=== PATIENT | female | born 1955 ===

== ENCOUNTER 2019-12-02 18:09 | Inpatient (IN) | payer MEDICARE ==
[2019-12-03] MEDS ORDERED: LORazepam 2 MG TAB PO PRN (02:11)
[2019-12-03] MEDS ORDERED: HALOPERIDOL 5 MG TAB PO PRN (02:14)
[2019-12-03] MEDS ORDERED: traZODone 50 MG TAB PO PRN (02:15)
[2019-12-03] MEDS: LORazepam 2 MG/ML VIAL IM PRN (04:28)
[2019-12-03] MEDS: HALOPERIDOL LACTATE 5 MG/1 ML INJ IM PRN (04:29)
[2019-12-03] MEDS ORDERED: VENLAFAXINE XR 75 MG CAP PO SCH (10:00)
[2019-12-03 10:04] LABS: Hemoglobin 11.8 gm/dl (10.1-14.3); Mean Corpuscular HGB Conc 32 % (30-34); Mean Corpuscular Volume 94 fl (79-97); Platelet Count 115 K/mm3 (140-440); Red Blood Count 3.92 M/mm3 (3.65-5.03); Red Cell Distribution Width 15.4 % (13.2-15.2)
--- NOTE | 2019-12-03 10:04 | History and Physical Report ---
GP History & Physical - History of Present Illness Date of admission: 12/02/19 Date of Examination: 12/03/19 Reason for Admission: Danger to self, Unable to care for self Chief Complaint: Combative, refusing medications and meals. Ran into traffic History of Present Illness: The patient is a 63 y/o AAF with history of Schizophrenia and Dementia who presented with history of refusing to take her medications, refusing to eat and being combative with cares. She reportedly ran into the street with disregard to on-moving traffic. Patient has reportedly not been taking her psychotropic drugs for three months. Nursing Staff reports that patient was mute on arriving the unit. She refused to answer questions and would not sign paper works. Refused snacks as offered. Patient seen in the dayroom this morning. She is alert, she is a poor historian, states that she is ok and denies SI/HI. She is not able to engage in further conversation. PAST PSYCHIATRIC HISTORY: Diagnoses: Schizophrenia, Dementia Suicide attempts or Self-harm behavior: Unknown Prior psychiatric hospitalizations: Unknown Substance Abuse history: Unknown Previous psychiatric medications tried: Unknown Outpatient treatment: Unknown PAST MEDICAL HISTORY: Leukemia Family Psychiatric History None reported or documented SOCIAL HISTORY Unable to obtain REVIEW OF SYSTEMS ROS cannot be reliably obtained from the patient due to her confusion MENTAL STATUS EXAMINATION General Appearance and Behavior: age appropriate, poor eye contact, uncooperative with questioning Cooperation: uncooperative Psychomotor Behavior: agitated Mood: OK Affect and affective range: Congruent with stated mood Thought Process: Disorganized Thought Content: Confused Speech: Paucity of speech Intellectual Functioning Impaired Suicidal Ideation: Denies SI Homicidal Ideation: Denies HI Impulse Control: impaired Insight and Judgment: impairedl insight and judgment Memory: impaired Attention: Normal Orientation: alert and oriented x 1 - Psychiatric problem (1) Schizophrenia Current Visit: Yes Status: Acute Qualifiers: Schizophrenia type: unspecified Qualified Code(s): F20.9 - Schizophrenia, unspecified (2) Dementia with behavioral disturbance Current Visit: Yes Status: Acute Treatment Plan Patient will be admitted for inpatient psychiatric evaluation, medication adjustment and close monitoring The patient's behavior, mood, sleep and appetite will be closely monitored. Patient will be enrolled in individual and group therapeutic sessions and encouraged to attend. Patient will be provided with a safe and structured environment. Patient's physical health needs will be addressed by the Hospitalist. Hospitalist Consulted Labs including CBC, CMP, Lipid profile and Hemoglobin A1C ordered Social Assessment will be completed and the Ambulatory Care will work with patient and family to ensure a suitable and safe disposition Medication adjustment will be made as clinically indicated ELOS 7 days. Legal Status: Involuntary Patient Problems: Current Active Problems Dementia with behavioral disturbance (Acute) Schizophrenia (Acute) Reaction to Hospitalization: Resistant Medications and Allergies Allergies Allergy/AdvReac Type Severity Reaction Status Date / Time No Known Allergies Allergy Verified 12/02/19 18:17 Home Medications Medication Instructions Recorded Confirmed Last Taken Type Melatonin [Melatonin 5MG TAB] 5 mg PO QHS 12/03/19 12/03/19 Unknown History Mirtazapine [Remeron 15mg TAB] 15 mg PO QHS 12/03/19 12/03/19 Unknown History Venlafaxine Xr [Effexor Xr] 75 mg PO QDAY 12/03/19 12/03/19 Unknown History risperiDONE [RisperDAL] 2 mg PO QHS 12/03/19 12/03/19 Unknown History Active Meds: Active Medications Haloperidol (Haldol) 5 mg PO Q6H PRN PRN Reason: Agitation Haloperidol Lactate (Haldol) 5 mg IM Q6H PRN PRN Reason: Agitation Last Admin: 12/03/19 04:29 Dose: 5 mg Documented by: Lorazepam (Ativan) 2 mg PO Q6H PRN PRN Reason: Agitation Lorazepam (Ativan) 2 mg IM Q6H PRN PRN Reason: Agitation Last Admin: 12/03/19 04:28 Dose: 2 mg Documented by: Melatonin (Melatonin) 5 mg PO QHS [facility] Melatonin (Melatonin) 5 mg PO QHS [facility] Mirtazapine (Remeron) 15 mg PO QHS [facility] Mirtazapine (Remeron) 15 mg PO QHS [facility] Miscellaneous Medication (Risperidone [Risperdal]) 2 mg PO QHS [facility] Risperidone (Risperdal) 2 mg PO QHS [facility] Trazodone HCl (Desyrel) 50 mg PO QHS PRN PRN Reason: Insomnia Venlafaxine HCl (Effexor Xr) 75 mg PO QDAY [facility] Venlafaxine HCl (Effexor Xr) 75 mg PO QDAY [facility] Results - Results Labs/Vitals: Laboratory Last Values POC Glucose 78 (70-105) 12/03/19 08:04 Last Vital Signs Temp 98.1 F 12/03/19 08:32 Pulse 99 H 12/03/19 08:32 Resp 20 12/03/19 08:32 BP 115/71 12/03/19 08:32 Pulse Ox 97 12/03/19 08:32 Physical Examination - Constitutional Vitals: Vital Signs Temp Pulse Resp BP Pulse Ox 98.1 F 99 H 20 115/71 97 12/03/19 08:32 12/03/19 08:32 12/03/19 08:32 12/03/19 08:32 12/03/19 08:32 Temperature -Last 24 Hours Temperature 98.1 F Temperature 98.1 F Temperature 98.1 F Mental Status Exam - Vital signs Last Vital Signs Temp 98.1 F 12/03/19 08:32 Pulse 99 H 12/03/19 08:32 Resp 20 12/03/19 08:32 BP 115/71 12/03/19 08:32 Pulse Ox 97 12/03/19 08:32 Assessment and Plan - Psychiatric problem (1) Schizophrenia Current Visit: Yes Status: Acute Qualifiers: Schizophrenia type: unspecified Qualified Code(s): F20.9 - Schizophrenia, unspecified (2) Dementia with behavioral disturbance Current Visit: Yes Status: Acute Physician Certification - Certification Statement Physician Certification Statement: This is an acknowledgement statement that DEEPIKA JONES is a 63 year old F who requires inpatient psychiatric admission for treatment which could reasonably be expected to improve the patient's condition for Combative behavior, refusing to take medications and refusing to eat Estimated period of time patient will need to remain in the hospital: [7 days ] Plan for post-hospital care: [Out-patient care]
[2019-12-03 10:22] LABS: Alanine Aminotransferase 15 units/L (7-56); Albumin 4.1 g/dL (3.9-5); BUN/Creatinine Ratio 20; Blood Urea Nitrogen 18 mg/dL (7-17); Calcium 9.5 mg/dL (8.4-10.2); HDL Cholesterol 57 mg/dL (40-59); Hemolysis Index 6; LDL Cholesterol,Direct 181 mg/dL (50-130)
[2019-12-03] MEDS: VENLAFAXINE XR 75 MG CAP PO SCH (11:44)
[2019-12-03 13:09] LABS: Anisocytosis Few; Basophils % (Manual) 0 % (0.0-1.8); Eosinophils % (Manual) 0 % (0.0-4.3); Macrocytosis Few; Monocytes % (Manual) 0 % (0.0-7.3); Platelet Estimate Consistent w Auto; Total Cells Counted 100
[2019-12-03] MEDS: risperiDONE 1 MG TAB PO SCH ×2 (21:44→22:03)
[2019-12-03] MEDS: MIRTAZAPINE 15 MG TAB PO SCH ×2 (21:44→22:02)
[2019-12-03] MEDS: MELATONIN 5 MG TAB PO SCH ×2 (21:44→22:01)
[2019-12-03] MEDS ORDERED: MIRTAZAPINE 15 MG TAB PO SCH (22:00)
[2019-12-03] MEDS ORDERED: NON-FORMULARY EACH (Risperidone [Risperdal] 2 MG) PO SCH (22:00)
[2019-12-03] MEDS ORDERED: risperiDONE 1 MG TAB PO SCH (22:00)
[2019-12-03] MEDS ORDERED: MELATONIN 5 MG TAB PO SCH (22:00)
--- NOTE | 2019-12-04 08:07 | Progress Note ---
Subjective Date of service: 12/04/19 Principal diagnosis: Dementia, Catatonic Schizophrenia Subjective Comment: SUBJECTIVE I reviewed patient this morning. I met her sitting on her bed in her room, starring blankly, motionless and mute. Nursing report: Patient presents with a bizarre affect. She has had no interaction with peers or staff. Some of her time has been standing in the hallway looking into space. She will not discuss her thoughts. The patient refused her bedtime meds. REVIEW OF SYSTEMS ROS cannot be reliably obtained from the patient due to her confusion MENTAL STATUS EXAMINATION LSIME - Psychiatric problem (1) Schizophrenia, Catatonic Current Visit: Yes Status: Acute Qualifiers: Schizophrenia type: unspecified Qualified Code(s): F20.9 - Schizophrenia, unspecified (2) Dementia with behavioral disturbance Current Visit: Yes Status: Acute Treatment Plan Patient will be admitted for inpatient psychiatric evaluation, medication adjustment and close monitoring The patient's behavior, mood, sleep and appetite will be closely monitored. Patient will be enrolled in individual and group therapeutic sessions and encouraged to attend. Patient will be provided with a safe and structured environment. Patient's physical health needs will be addressed by the Hospitalist. Hospitalist Consulted Labs including CBC, CMP, Lipid profile and Hemoglobin A1C ordered Social Assessment will be completed and the Hand Booked Folder And Stitcher will work with patient and family to ensure a suitable and safe disposition Medication adjustment will be made as clinically indicated Medication adjustment made today: Lorazepam im 1mg q8 and Risperidone increased to 2mg bid ELOS 7 days. Legal Status: Involuntary Assessment and Plan - Patient Problems (1) Schizophrenia Current Visit: Yes Status: Acute Qualifiers: Schizophrenia type: unspecified Qualified Code(s): F20.9 - Schizophrenia, unspecified (2) Dementia with behavioral disturbance Current Visit: Yes Status: Acute Medications and Allergies Allergies Allergy/AdvReac Type Severity Reaction Status Date / Time No Known Allergies Allergy Verified 12/02/19 18:17 Home Medications Medication Instructions Recorded Confirmed Last Taken Type Melatonin [Melatonin 5MG TAB] 5 mg PO QHS 12/03/19 12/03/19 Unknown History Mirtazapine [Remeron 15mg TAB] 15 mg PO QHS 12/03/19 12/03/19 Unknown History Venlafaxine Xr [Effexor Xr] 75 mg PO QDAY 12/03/19 12/03/19 Unknown History risperiDONE [RisperDAL] 2 mg PO QHS 12/03/19 12/03/19 Unknown History Active Meds: Active Medications Haloperidol (Haldol) 5 mg PO Q6H PRN PRN Reason: Agitation Haloperidol Lactate (Haldol) 5 mg IM Q6H PRN PRN Reason: Agitation Last Admin: 12/03/19 04:29 Dose: 5 mg Documented by: Lorazepam (Ativan) 2 mg PO Q6H PRN PRN Reason: Agitation Lorazepam (Ativan) 2 mg IM Q6H PRN PRN Reason: Agitation Last Admin: 12/03/19 04:28 Dose: 2 mg Documented by: Lorazepam (Ativan) 1 mg IM Q8H [facility] Melatonin (Melatonin) 5 mg PO QHS [facility] Last Admin: 12/03/19 22:01 Dose: Not Given Documented by: Mirtazapine (Remeron) 15 mg PO QHS [facility] Last Admin: 12/03/19 22:02 Dose: Not Given Documented by: Risperidone (Risperdal) 2 mg PO BID [facility] Trazodone HCl (Desyrel) 50 mg PO QHS PRN PRN Reason: Insomnia Venlafaxine HCl (Effexor Xr) 75 mg PO QDAY [facility] Last Admin: 12/03/19 11:44 Dose: Not Given Documented by: Results - Results Labs/Vitals: Laboratory Last Values WBC 29.8 K/mm3 (4.5-11.0) H 12/03/19 09:16 RBC 3.92 M/mm3 (3.65-5.03) 12/03/19 09:16 Hgb 11.8 gm/dl (10.1-14.3) 12/03/19 09:16 Hct 37.0 % (30.3-42.9) 12/03/19 09:16 MCV 94 fl (79-97) 12/03/19 09:16 MCH 30 pg (28-32) 12/03/19 09:16 MCHC 32 % (30-34) 12/03/19 09:16 RDW 15.4 % (13.2-15.2) H 12/03/19 09:16 Plt Count 115 K/mm3 (140-440) L 12/03/19 09:16 Lymph % (Auto) Case Management Social Worker 12/03/19 09:16 Lymph # Case Management Social Worker 12/03/19 09:16 Add Manual Diff Complete 12/03/19 09:16 Total Counted 100 12/03/19 09:16 Seg Neutrophils % Case Management Social Worker 12/03/19 09:16 Seg Neuts % (Manual) 11.0 % (40.0-70.0) L 12/03/19 09:16 Band Neutrophils % 0 % 12/03/19 09:16 Lymphocytes % (Manual) 89.0 % (13.4-35.0) H 12/03/19 09:16 Reactive Lymphs % (Man) 0 % 12/03/19 09:16 Monocytes % (Manual) 0 % (0.0-7.3) 12/03/19 09:16 Eosinophils % (Manual) 0 % (0.0-4.3) 12/03/19 09:16 Basophils % (Manual) 0 % (0.0-1.8) 12/03/19 09:16 Metamyelocytes % 0 % 12/03/19 09:16 Myelocytes % 0 % 12/03/19 09:16 Promyelocytes % 0 % 12/03/19 09:16 Blast Cells % 0 % 12/03/19 09:16 Nucleated RBC % Not Reportable 12/03/19 09:16 Seg Neutrophils # Man 3.3 K/mm3 (1.8-7.7) 12/03/19 09:16 Band Neutrophils # 0.0 K/mm3 12/03/19 09:16 Lymphocytes # (Manual) 26.5 K/mm3 (1.2-5.4) H 12/03/19 09:16 Abs React Lymphs (Man) 0.0 K/mm3 12/03/19 09:16 Monocytes # (Manual) 0.0 K/mm3 (0.0-0.8) 12/03/19 09:16 Eosinophils # (Manual) 0.0 K/mm3 (0.0-0.4) 12/03/19 09:16 Basophils # (Manual) 0.0 K/mm3 (0.0-0.1) 12/03/19 09:16 Metamyelocytes # 0.0 K/mm3 12/03/19 09:16 Myelocytes # 0.0 K/mm3 12/03/19 09:16 Promyelocytes # 0.0 K/mm3 12/03/19 09:16 Blast Cells # 0.0 K/mm3 12/03/19 09:16 WBC Morphology Not Reportable 12/03/19 09:16 Hypersegmented Neuts Not Reportable 12/03/19 09:16 Hyposegmented Neuts Not Reportable 12/03/19 09:16 Hypogranular Neuts Not Reportable 12/03/19 09:16 Smudge Cells Not Reportable 12/03/19 09:16 Toxic Granulation Not Reportable 12/03/19 09:16 Toxic Vacuolation Not Reportable 12/03/19 09:16 Dohle Bodies Not Reportable 12/03/19 09:16 Pelger-Huet Anomaly Not Reportable 12/03/19 09:16 Libia Rods Not Reportable 12/03/19 09:16 Platelet Estimate Consistent w auto 12/03/19 09:16 Clumped Platelets Not Reportable 12/03/19 09:16 Plt Clumps, EDTA Not Reportable 12/03/19 09:16 Large Platelets Not Reportable 12/03/19 09:16 Giant Platelets Not Reportable 12/03/19 09:16 Platelet Satelliting Not Reportable 12/03/19 09:16 Plt Morphology Comment Not Reportable 12/03/19 09:16 RBC Morphology Not Reportable 12/03/19 09:16 Dimorphic RBCs Not Reportable 12/03/19 09:16 Polychromasia Not Reportable 12/03/19 09:16 Hypochromasia Not Reportable 12/03/19 09:16 Poikilocytosis Not Reportable 12/03/19 09:16 Anisocytosis Few 12/03/19 09:16 Microcytosis Few 12/03/19 09:16 Macrocytosis Few 12/03/19 09:16 Spherocytes Not Reportable 12/03/19 09:16 Pappenheimer Bodies Not Reportable 12/03/19 09:16 Sickle Cells Not Reportable 12/03/19 09:16 Target Cells Not Reportable 12/03/19 09:16 Tear Drop Cells Not Reportable 12/03/19 09:16 Ovalocytes Not Reportable 12/03/19 09:16 Helmet Cells Not Reportable 12/03/19 09:16 [place] Bodies Not Reportable 12/03/19 09:16 [place] Rings Not Reportable 12/03/19 09:16 [place] Cells Not Reportable 12/03/19 09:16 Bite Cells Not Reportable 12/03/19 09:16 Crenated Cell Not Reportable 12/03/19 09:16 Elliptocytes Not Reportable 12/03/19 09:16 Acanthocytes (Spur) Not Reportable 12/03/19 09:16 Rouleaux Not Reportable 12/03/19 09:16 Hemoglobin C Crystals Not Reportable 12/03/19 09:16 Schistocytes Not Reportable 12/03/19 09:16 Malaria parasites Not Reportable 12/03/19 09:16 Daniel Bodies Not Reportable 12/03/19 09:16 Hem Pathologist Commnt No 12/03/19 09:16 Sodium 142 mmol/L (137-145) 12/03/19 09:16 Potassium 4.4 mmol/L (3.6-5.0) 12/03/19 09:16 Chloride 105.5 mmol/L (98-107) 12/03/19 09:16 Carbon Dioxide 22 mmol/L (22-30) 12/03/19 09:16 Anion Gap 19 mmol/L 12/03/19 09:16 BUN 18 mg/dL (7-17) H 12/03/19 09:16 Creatinine 0.9 mg/dL (0.7-1.2) 12/03/19 09:16 Estimated GFR > 60 ml/min 12/03/19 09:16 BUN/Creatinine Ratio 20 % 12/03/19 09:16 Glucose 118 mg/dL (65-100) H 12/03/19 09:16 POC Glucose 78 (70-105) 12/03/19 08:04 Hemoglobin A1c 4.7 % (4-6) 12/03/19 09:16 Calcium 9.5 mg/dL (8.4-10.2) 12/03/19 09:16 Total Bilirubin 0.30 mg/dL (0.1-1.2) 12/03/19 09:16 AST 18 units/L (5-40) 12/03/19 09:16 ALT 15 units/L (7-56) 12/03/19 09:16 Alkaline Phosphatase 69 units/L (35-129) 12/03/19 09:16 Total Protein 6.8 g/dL (6.3-8.2) 12/03/19 09:16 Albumin 4.1 g/dL (3.9-5) 12/03/19 09:16 Albumin/Globulin Ratio 1.5 % 12/03/19 09:16 Triglycerides 70 mg/dL (2-149) 12/03/19 09:16 Cholesterol 234 mg/dL (50-199) H 12/03/19 09:16 LDL Cholesterol Direct 181 mg/dL (50-130) H 12/03/19 09:16 HDL Cholesterol 57 mg/dL (40-59) 12/03/19 09:16 Cholesterol/HDL Ratio 4.10 % 12/03/19 09:16 TSH 4.680 mlU/mL (0.270-4.200) H 12/03/19 09:16 Last Vital Signs Temp 97.3 F L 12/03/19 22:00 Pulse 103 H 12/03/19 22:00 Resp 16 12/03/19 22:00 BP 118/82 12/03/19 19:28 Pulse Ox 99 12/03/19 22:00
[2019-12-04] MEDS: LORazepam 2 MG/ML VIAL IM SCH ×2 (08:44→18:10)
[2019-12-04] MEDS: VENLAFAXINE XR 75 MG CAP PO SCH (11:45)
[2019-12-04] MEDS: risperiDONE 1 MG TAB PO SCH ×2 (11:45→21:24)
[2019-12-04] MEDS: HALOPERIDOL LACTATE 5 MG/1 ML INJ IM PRN ×2 (12:24→21:24)
[2019-12-04] MEDS: MIRTAZAPINE 15 MG TAB PO SCH (21:24)
[2019-12-04] MEDS: MELATONIN 5 MG TAB PO SCH (21:24)
[2019-12-05] MEDS: LORazepam 2 MG/ML VIAL IM SCH ×3 (00:02→18:18)
--- NOTE | 2019-12-05 08:10 | Progress Note ---
Subjective Date of service: 12/05/19 Principal diagnosis: Dementia, Catatonic Schizophrenia Subjective Comment: SUBJECTIVE I reviewed patient this morning. I met her sitting on her bed in her room, starring blankly, motionless and mute. Nursing report: Patient continues to be resistive to care. She did allow her vital signs to be taken but refused her medications. She spent most of her time laying curled up in her bed. She will not discuss her thoughts or feelings. When patient refused po meds she was cooperative with accepting im haldol. She did not eat a snack or drink fluids. She slept continually throughout the night. Patient presents as sleeping 8 plus hours. REVIEW OF SYSTEMS ROS cannot be reliably obtained from the patient due to her confusion MENTAL STATUS EXAMINATION SLIME - Psychiatric problem (1) Schizophrenia, Catatonic Current Visit: Yes Status: Acute Qualifiers: Schizophrenia type: unspecified Qualified Code(s): F20.9 - Schizophrenia, unspecified (2) Dementia with behavioral disturbance Current Visit: Yes Status: Acute Treatment Plan Patient will be admitted for inpatient psychiatric evaluation, medication adjustment and close monitoring The patient's behavior, mood, sleep and appetite will be closely monitored. Patient will be enrolled in individual and group therapeutic sessions and encouraged to attend. Patient will be provided with a safe and structured environment. Patient's physical health needs will be addressed by the Hospitalist. Hospitalist Consulted Labs including CBC, CMP, Lipid profile and Hemoglobin A1C ordered Social Assessment will be completed and the Director Life will work with patient and family to ensure a suitable and safe disposition Medication adjustment will be made as clinically indicated Medication adjustment made today: None ELOS 7 days. Legal Status: Involuntary Assessment and Plan - Patient Problems (1) Schizophrenia Current Visit: Yes Status: Acute Qualifiers: Schizophrenia type: unspecified Qualified Code(s): F20.9 - Schizophrenia, unspecified (2) Dementia with behavioral disturbance Current Visit: Yes Status: Acute Medications and Allergies Allergies Allergy/AdvReac Type Severity Reaction Status Date / Time No Known Allergies Allergy Verified 12/02/19 18:17 Home Medications Medication Instructions Recorded Confirmed Last Taken Type Melatonin [Melatonin 5MG TAB] 5 mg PO QHS 12/03/19 12/03/19 Unknown History Mirtazapine [Remeron 15mg TAB] 15 mg PO QHS 12/03/19 12/03/19 Unknown History Venlafaxine Xr [Effexor Xr] 75 mg PO QDAY 12/03/19 12/03/19 Unknown History risperiDONE [RisperDAL] 2 mg PO QHS 12/03/19 12/03/19 Unknown History Active Meds: Active Medications Haloperidol (Haldol) 5 mg PO Q6H PRN PRN Reason: Agitation Haloperidol Lactate (Haldol) 5 mg IM Q6H PRN PRN Reason: Agitation Last Admin: 12/04/19 21:24 Dose: 5 mg Documented by: Lorazepam (Ativan) 2 mg PO Q6H PRN PRN Reason: Agitation Lorazepam (Ativan) 2 mg IM Q6H PRN PRN Reason: Agitation Last Admin: 12/03/19 04:28 Dose: 2 mg Documented by: Lorazepam (Ativan) 1 mg IM Q8H [facility] Last Admin: 12/05/19 00:02 Dose: 1 mg Documented by: Melatonin (Melatonin) 5 mg PO QHS [facility] Last Admin: 12/04/19 21:24 Dose: Not Given Documented by: Mirtazapine (Remeron) 15 mg PO QHS [facility] Last Admin: 12/04/19 21:24 Dose: Not Given Documented by: Risperidone (Risperdal) 2 mg PO BID [facility] Last Admin: 12/04/19 21:24 Dose: Not Given Documented by: Trazodone HCl (Desyrel) 50 mg PO QHS PRN PRN Reason: Insomnia Venlafaxine HCl (Effexor Xr) 75 mg PO QDAY [facility] Last Admin: 12/04/19 11:45 Dose: Not Given Documented by: Results - Results Labs/Vitals: Laboratory Last Values WBC 29.8 K/mm3 (4.5-11.0) H 12/03/19 09:16 RBC 3.92 M/mm3 (3.65-5.03) 12/03/19 09:16 Hgb 11.8 gm/dl (10.1-14.3) 12/03/19 09:16 Hct 37.0 % (30.3-42.9) 12/03/19 09:16 MCV 94 fl (79-97) 12/03/19 09:16 MCH 30 pg (28-32) 12/03/19 09:16 MCHC 32 % (30-34) 12/03/19 09:16 RDW 15.4 % (13.2-15.2) H 12/03/19 09:16 Plt Count 115 K/mm3 (140-440) L 12/03/19 09:16 Lymph % (Auto) Bartender 12/03/19 09:16 Lymph # Bartender 12/03/19 09:16 Add Manual Diff Complete 12/03/19 09:16 Total Counted 100 12/03/19 09:16 Seg Neutrophils % Bartender 12/03/19 09:16 Seg Neuts % (Manual) 11.0 % (40.0-70.0) L 12/03/19 09:16 Band Neutrophils % 0 % 12/03/19 09:16 Lymphocytes % (Manual) 89.0 % (13.4-35.0) H 12/03/19 09:16 Reactive Lymphs % (Man) 0 % 12/03/19 09:16 Monocytes % (Manual) 0 % (0.0-7.3) 12/03/19 09:16 Eosinophils % (Manual) 0 % (0.0-4.3) 12/03/19 09:16 Basophils % (Manual) 0 % (0.0-1.8) 12/03/19 09:16 Metamyelocytes % 0 % 12/03/19 09:16 Myelocytes % 0 % 12/03/19 09:16 Promyelocytes % 0 % 12/03/19 09:16 Blast Cells % 0 % 12/03/19 09:16 Nucleated RBC % Not Reportable 12/03/19 09:16 Seg Neutrophils # Man 3.3 K/mm3 (1.8-7.7) 12/03/19 09:16 Band Neutrophils # 0.0 K/mm3 12/03/19 09:16 Lymphocytes # (Manual) 26.5 K/mm3 (1.2-5.4) H 12/03/19 09:16 Abs React Lymphs (Man) 0.0 K/mm3 12/03/19 09:16 Monocytes # (Manual) 0.0 K/mm3 (0.0-0.8) 12/03/19 09:16 Eosinophils # (Manual) 0.0 K/mm3 (0.0-0.4) 12/03/19 09:16 Basophils # (Manual) 0.0 K/mm3 (0.0-0.1) 12/03/19 09:16 Metamyelocytes # 0.0 K/mm3 12/03/19 09:16 Myelocytes # 0.0 K/mm3 12/03/19 09:16 Promyelocytes # 0.0 K/mm3 12/03/19 09:16 Blast Cells # 0.0 K/mm3 12/03/19 09:16 WBC Morphology Not Reportable 12/03/19 09:16 Hypersegmented Neuts Not Reportable 12/03/19 09:16 Hyposegmented Neuts Not Reportable 12/03/19 09:16 Hypogranular Neuts Not Reportable 12/03/19 09:16 Smudge Cells Not Reportable 12/03/19 09:16 Toxic Granulation Not Reportable 12/03/19 09:16 Toxic Vacuolation Not Reportable 12/03/19 09:16 Dohle Bodies Not Reportable 12/03/19 09:16 Pelger-Huet Anomaly Not Reportable 12/03/19 09:16 Libia Rods Not Reportable 12/03/19 09:16 Platelet Estimate Consistent w auto 12/03/19 09:16 Clumped Platelets Not Reportable 12/03/19 09:16 Plt Clumps, EDTA Not Reportable 12/03/19 09:16 Large Platelets Not Reportable 12/03/19 09:16 Giant Platelets Not Reportable 12/03/19 09:16 Platelet Satelliting Not Reportable 12/03/19 09:16 Plt Morphology Comment Not Reportable 12/03/19 09:16 RBC Morphology Not Reportable 12/03/19 09:16 Dimorphic RBCs Not Reportable 12/03/19 09:16 Polychromasia Not Reportable 12/03/19 09:16 Hypochromasia Not Reportable 12/03/19 09:16 Poikilocytosis Not Reportable 12/03/19 09:16 Anisocytosis Few 12/03/19 09:16 Microcytosis Few 12/03/19 09:16 Macrocytosis Few 12/03/19 09:16 Spherocytes Not Reportable 12/03/19 09:16 Pappenheimer Bodies Not Reportable 12/03/19 09:16 Sickle Cells Not Reportable 12/03/19 09:16 Target Cells Not Reportable 12/03/19 09:16 Tear Drop Cells Not Reportable 12/03/19 09:16 Ovalocytes Not Reportable 12/03/19 09:16 Helmet Cells Not Reportable 12/03/19 09:16 [place] Bodies Not Reportable 12/03/19 09:16 [place] Rings Not Reportable 12/03/19 09:16 [place] Cells Not Reportable 12/03/19 09:16 Bite Cells Not Reportable 12/03/19 09:16 Crenated Cell Not Reportable 12/03/19 09:16 Elliptocytes Not Reportable 12/03/19 09:16 Acanthocytes (Spur) Not Reportable 12/03/19 09:16 Rouleaux Not Reportable 12/03/19 09:16 Hemoglobin C Crystals Not Reportable 12/03/19 09:16 Schistocytes Not Reportable 12/03/19 09:16 Malaria parasites Not Reportable 12/03/19 09:16 Daniel Bodies Not Reportable 12/03/19 09:16 Hem Pathologist Commnt No 12/03/19 09:16 Sodium 142 mmol/L (137-145) 12/03/19 09:16 Potassium 4.4 mmol/L (3.6-5.0) 12/03/19 09:16 Chloride 105.5 mmol/L (98-107) 12/03/19 09:16 Carbon Dioxide 22 mmol/L (22-30) 12/03/19 09:16 Anion Gap 19 mmol/L 12/03/19 09:16 BUN 18 mg/dL (7-17) H 12/03/19 09:16 Creatinine 0.9 mg/dL (0.7-1.2) 12/03/19 09:16 Estimated GFR > 60 ml/min 12/03/19 09:16 BUN/Creatinine Ratio 20 % 12/03/19 09:16 Glucose 118 mg/dL (65-100) H 12/03/19 09:16 POC Glucose 78 (70-105) 12/03/19 08:04 Hemoglobin A1c 4.7 % (4-6) 12/03/19 09:16 Calcium 9.5 mg/dL (8.4-10.2) 12/03/19 09:16 Total Bilirubin 0.30 mg/dL (0.1-1.2) 12/03/19 09:16 AST 18 units/L (5-40) 12/03/19 09:16 ALT 15 units/L (7-56) 12/03/19 09:16 Alkaline Phosphatase 69 units/L (35-129) 12/03/19 09:16 Total Protein 6.8 g/dL (6.3-8.2) 12/03/19 09:16 Albumin 4.1 g/dL (3.9-5) 12/03/19 09:16 Albumin/Globulin Ratio 1.5 % 12/03/19 09:16 Triglycerides 70 mg/dL (2-149) 12/03/19 09:16 Cholesterol 234 mg/dL (50-199) H 12/03/19 09:16 LDL Cholesterol Direct 181 mg/dL (50-130) H 12/03/19 09:16 HDL Cholesterol 57 mg/dL (40-59) 12/03/19 09:16 Cholesterol/HDL Ratio 4.10 % 12/03/19 09:16 TSH 4.680 mlU/mL (0.270-4.200) H 12/03/19 09:16 Last Vital Signs Temp 97.9 F 12/04/19 22:00 Pulse 101 H 12/04/19 22:00 Resp 18 12/04/19 22:00 BP 130/83 12/04/19 22:00 Pulse Ox 97 12/04/19 22:00
[2019-12-05] MEDS: risperiDONE 1 MG TAB PO SCH ×2 (15:21→21:43)
[2019-12-05] MEDS: VENLAFAXINE XR 75 MG CAP PO SCH (15:21)
--- NOTE | 2019-12-05 17:16 | Consultation ---
History of Present Illness - Reason for Consult Consult date: 12/05/19 Medical consult Requesting physician: VIKTORIA RAYO - History of Present Illness 63-year-old -[place] female patient with significant past medical history of schizophrenia dementia unable to care for self refusing to eat and take medications, danger to self was admitted to inpatient [facility] psych unit for management. Hospitalist services were consulted for medical consult. Patient has no significant known past medical history except for leukemia with leukocytosis Patient is unable to give history Past History Past Medical History: other (Schizophrenia, dementia, leukemia) Past Surgical History: No surgical history (No history available) Social history: no significant social history (No history available) Family history: no significant family history (No history available) Medications and Allergies Allergies Allergy/AdvReac Type Severity Reaction Status Date / Time No Known Allergies Allergy Verified 12/02/19 18:17 Home Medications Medication Instructions Recorded Confirmed Last Taken Type Melatonin [Melatonin 5MG TAB] 5 mg PO QHS 12/03/19 12/03/19 Unknown History Mirtazapine [Remeron 15mg TAB] 15 mg PO QHS 12/03/19 12/03/19 Unknown History Venlafaxine Xr [Effexor Xr] 75 mg PO QDAY 12/03/19 12/03/19 Unknown History risperiDONE [RisperDAL] 2 mg PO QHS 12/03/19 12/03/19 Unknown History Paliperidone Palmitate(Nf) [Invega 234 mg IM ONCE #1 ml 12/06/19 Unknown Rx Sustenna(Nf)] Active Meds: Active Medications Haloperidol (Haldol) 5 mg PO Q6H PRN PRN Reason: Agitation Haloperidol Lactate (Haldol) 5 mg IM Q6H PRN PRN Reason: Agitation Last Admin: 12/04/19 21:24 Dose: 5 mg Documented by: Lorazepam (Ativan) 2 mg PO Q6H PRN PRN Reason: Agitation Lorazepam (Ativan) 2 mg IM Q6H PRN PRN Reason: Agitation Last Admin: 12/03/19 04:28 Dose: 2 mg Documented by: Lorazepam (Ativan) 1 mg IM Q8H [facility] Last Admin: 12/05/19 09:02 Dose: 1 mg Documented by: Melatonin (Melatonin) 5 mg PO QHS [facility] Last Admin: 12/04/19 21:24 Dose: Not Given Documented by: Mirtazapine (Remeron) 15 mg PO QHS [facility] Last Admin: 12/04/19 21:24 Dose: Not Given Documented by: Risperidone (Risperdal) 2 mg PO BID [facility] Last Admin: 12/05/19 15:21 Dose: Not Given Documented by: Trazodone HCl (Desyrel) 50 mg PO QHS PRN PRN Reason: Insomnia Venlafaxine HCl (Effexor Xr) 75 mg PO QDAY [facility] Last Admin: 12/05/19 15:21 Dose: Not Given Documented by: Review of Systems ROS unobtainable: due to mental status Exam - Constitutional Vitals: Temp Pulse Resp BP Pulse Ox 97.9 F 88 16 120/81 98 12/05/19 09:40 12/05/19 09:40 12/05/19 09:40 12/05/19 09:40 12/05/19 09:40 General appearance: Present: no acute distress, other (Patient is noncommunicative, unresponsive, awake) - EENT Eyes: Present: PERRL. Absent: scleral icterus - Neck Neck: Present: supple, normal ROM - Respiratory Respiratory effort: normal Respiratory: bilateral: diminished, negative: rales, rhonchi, wheezing - Cardiovascular Rhythm: regular Heart Sounds: Present: S1 & S2 - Extremities Extremities: no ischemia, No edema - Abdominal General gastrointestinal: Present: soft, non-tender, non-distended, normal bowel sounds - Integumentary Integumentary: Present: clear, warm - Musculoskeletal Musculoskeletal: other (Patient is lying in the bed unable to assess) - Psychiatric Psychiatric: other (Noncommunicative catatonic) - Neurologic Neurologic: other (Noncommunicative lying in the bed. unable to assess) Results - Labs CBC & Chem 7: 12/07/19 11:10 12/03/19 09:16 Assessment and Plan --Schizophrenia; management per psych --Dementia; management per psych --Leukocytosis; documented that patient has history of leukemia Patient will follow with hematology oncologist upon discharge --SIRS: Leukocytosis, tachycardia No organ dysfunction, supportive care --Abnormal TSH; possible hypothyroidism Check thyroid panel, address accordingly --Dyslipidemia; LDL 181 Low-dose statin[Lipitor 20 mg nightly] --DVT prophylaxis; SCDs while resting --CODE STATUS; full code Monitor closely and adjust the management as needed Plan of care reviewed with the patient's nurse Thank you for this consultation We will follow the patient along with you as needed basis.
[2019-12-05] MEDS: MIRTAZAPINE 15 MG TAB PO SCH (21:43)
[2019-12-05] MEDS: MELATONIN 5 MG TAB PO SCH (21:43)
[2019-12-05] MEDS: HALOPERIDOL LACTATE 5 MG/1 ML INJ IM PRN (22:12)
[2019-12-06] MEDS: LORazepam 2 MG/ML VIAL IM SCH ×3 (00:08→16:26)
--- NOTE | 2019-12-06 09:25 | Progress Note ---
Subjective Date of service: 12/06/19 Principal diagnosis: Dementia, Catatonic Schizophrenia Subjective Comment: SUBJECTIVE I reviewed patient this morning. I met her sitting on her bed in her room, starring blankly, motionless and mute. Nursing report: Pt is alert, selectively mute, spent her evening in bed, did not response to staff when spoken to, refused bedtime snack, refused po medication, haldol 5mg IM given per ordered if pt refuses po med, pt tolerated medication, no signs of distress noted. Reason for continuing admission: Patient is Catatonic REVIEW OF SYSTEMS ROS cannot be reliably obtained from the patient due to her confusion MENTAL STATUS EXAMINATION SLIME - Psychiatric problem (1) Schizophrenia, Catatonic Current Visit: Yes Status: Acute Qualifiers: Schizophrenia type: unspecified Qualified Code(s): F20.9 - Schizophrenia, unspecified (2) Dementia with behavioral disturbance Current Visit: Yes Status: Acute Treatment Plan Patient will be admitted for inpatient psychiatric evaluation, medication adjustment and close monitoring The patient's behavior, mood, sleep and appetite will be closely monitored. Patient will be enrolled in individual and group therapeutic sessions and encouraged to attend. Patient will be provided with a safe and structured environment. Patient's physical health needs will be addressed by the Hospitalist. Hospitalist Consulted Labs including CBC, CMP, Lipid profile and Hemoglobin A1C ordered Social Assessment will be completed and the Autopsy Assistant will work with patient and family to ensure a suitable and safe disposition Medication adjustment will be made as clinically indicated Medication adjustment made today: Will start Invega Sustenna 234mg IM ELOS 7 days. Legal Status: Involuntary Assessment and Plan - Patient Problems (1) Schizophrenia Current Visit: Yes Status: Acute Qualifiers: Schizophrenia type: unspecified Qualified Code(s): F20.9 - Schizophrenia, unspecified (2) Dementia with behavioral disturbance Current Visit: Yes Status: Acute Medications and Allergies Allergies Allergy/AdvReac Type Severity Reaction Status Date / Time No Known Allergies Allergy Verified 12/02/19 18:17 Home Medications Medication Instructions Recorded Confirmed Last Taken Type Melatonin [Melatonin 5MG TAB] 5 mg PO QHS 12/03/19 12/03/19 Unknown History Mirtazapine [Remeron 15mg TAB] 15 mg PO QHS 12/03/19 12/03/19 Unknown History Venlafaxine Xr [Effexor Xr] 75 mg PO QDAY 12/03/19 12/03/19 Unknown History risperiDONE [RisperDAL] 2 mg PO QHS 12/03/19 12/03/19 Unknown History Active Meds: Active Medications Haloperidol (Haldol) 5 mg PO Q6H PRN PRN Reason: Agitation Haloperidol Lactate (Haldol) 5 mg IM Q6H PRN PRN Reason: Agitation Last Admin: 12/05/19 22:12 Dose: 5 mg Documented by: Lorazepam (Ativan) 2 mg PO Q6H PRN PRN Reason: Agitation Lorazepam (Ativan) 2 mg IM Q6H PRN PRN Reason: Agitation Last Admin: 12/03/19 04:28 Dose: 2 mg Documented by: Lorazepam (Ativan) 1 mg IM Q8H [facility] Last Admin: 12/06/19 00:08 Dose: 1 mg Documented by: Melatonin (Melatonin) 5 mg PO QHS [facility] Last Admin: 12/05/19 21:43 Dose: Not Given Documented by: Mirtazapine (Remeron) 15 mg PO QHS [facility] Last Admin: 12/05/19 21:43 Dose: Not Given Documented by: Risperidone (Risperdal) 2 mg PO BID [facility] Last Admin: 12/05/19 21:43 Dose: Not Given Documented by: Trazodone HCl (Desyrel) 50 mg PO QHS PRN PRN Reason: Insomnia Venlafaxine HCl (Effexor Xr) 75 mg PO QDAY [facility] Last Admin: 12/05/19 15:21 Dose: Not Given Documented by: Results - Results Labs/Vitals: Laboratory Last Values WBC 29.8 K/mm3 (4.5-11.0) H 12/03/19 09:16 RBC 3.92 M/mm3 (3.65-5.03) 12/03/19 09:16 Hgb 11.8 gm/dl (10.1-14.3) 12/03/19 09:16 Hct 37.0 % (30.3-42.9) 12/03/19 09:16 MCV 94 fl (79-97) 12/03/19 09:16 MCH 30 pg (28-32) 12/03/19 09:16 MCHC 32 % (30-34) 12/03/19 09:16 RDW 15.4 % (13.2-15.2) H 12/03/19 09:16 Plt Count 115 K/mm3 (140-440) L 12/03/19 09:16 Lymph % (Auto) Chief Crew Scheduler 12/03/19 09:16 Lymph # Chief Crew Scheduler 12/03/19 09:16 Add Manual Diff Complete 12/03/19 09:16 Total Counted 100 12/03/19 09:16 Seg Neutrophils % Chief Crew Scheduler 12/03/19 09:16 Seg Neuts % (Manual) 11.0 % (40.0-70.0) L 12/03/19 09:16 Band Neutrophils % 0 % 12/03/19 09:16 Lymphocytes % (Manual) 89.0 % (13.4-35.0) H 12/03/19 09:16 Reactive Lymphs % (Man) 0 % 12/03/19 09:16 Monocytes % (Manual) 0 % (0.0-7.3) 12/03/19 09:16 Eosinophils % (Manual) 0 % (0.0-4.3) 12/03/19 09:16 Basophils % (Manual) 0 % (0.0-1.8) 12/03/19 09:16 Metamyelocytes % 0 % 12/03/19 09:16 Myelocytes % 0 % 12/03/19 09:16 Promyelocytes % 0 % 12/03/19 09:16 Blast Cells % 0 % 12/03/19 09:16 Nucleated RBC % Not Reportable 12/03/19 09:16 Seg Neutrophils # Man 3.3 K/mm3 (1.8-7.7) 12/03/19 09:16 Band Neutrophils # 0.0 K/mm3 12/03/19 09:16 Lymphocytes # (Manual) 26.5 K/mm3 (1.2-5.4) H 12/03/19 09:16 Abs React Lymphs (Man) 0.0 K/mm3 12/03/19 09:16 Monocytes # (Manual) 0.0 K/mm3 (0.0-0.8) 12/03/19 09:16 Eosinophils # (Manual) 0.0 K/mm3 (0.0-0.4) 12/03/19 09:16 Basophils # (Manual) 0.0 K/mm3 (0.0-0.1) 12/03/19 09:16 Metamyelocytes # 0.0 K/mm3 12/03/19 09:16 Myelocytes # 0.0 K/mm3 12/03/19 09:16 Promyelocytes # 0.0 K/mm3 12/03/19 09:16 Blast Cells # 0.0 K/mm3 12/03/19 09:16 WBC Morphology Not Reportable 12/03/19 09:16 Hypersegmented Neuts Not Reportable 12/03/19 09:16 Hyposegmented Neuts Not Reportable 12/03/19 09:16 Hypogranular Neuts Not Reportable 12/03/19 09:16 Smudge Cells Not Reportable 12/03/19 09:16 Toxic Granulation Not Reportable 12/03/19 09:16 Toxic Vacuolation Not Reportable 12/03/19 09:16 Dohle Bodies Not Reportable 12/03/19 09:16 Pelger-Huet Anomaly Not Reportable 12/03/19 09:16 Libia Rods Not Reportable 12/03/19 09:16 Platelet Estimate Consistent w auto 12/03/19 09:16 Clumped Platelets Not Reportable 12/03/19 09:16 Plt Clumps, EDTA Not Reportable 12/03/19 09:16 Large Platelets Not Reportable 12/03/19 09:16 Giant Platelets Not Reportable 12/03/19 09:16 Platelet Satelliting Not Reportable 12/03/19 09:16 Plt Morphology Comment Not Reportable 12/03/19 09:16 RBC Morphology Not Reportable 12/03/19 09:16 Dimorphic RBCs Not Reportable 12/03/19 09:16 Polychromasia Not Reportable 12/03/19 09:16 Hypochromasia Not Reportable 12/03/19 09:16 Poikilocytosis Not Reportable 12/03/19 09:16 Anisocytosis Few 12/03/19 09:16 Microcytosis Few 12/03/19 09:16 Macrocytosis Few 12/03/19 09:16 Spherocytes Not Reportable 12/03/19 09:16 Pappenheimer Bodies Not Reportable 12/03/19 09:16 Sickle Cells Not Reportable 12/03/19 09:16 Target Cells Not Reportable 12/03/19 09:16 Tear Drop Cells Not Reportable 12/03/19 09:16 Ovalocytes Not Reportable 12/03/19 09:16 Helmet Cells Not Reportable 12/03/19 09:16 [place] Bodies Not Reportable 12/03/19 09:16 [place] Rings Not Reportable 12/03/19 09:16 [place] Cells Not Reportable 12/03/19 09:16 Bite Cells Not Reportable 12/03/19 09:16 Crenated Cell Not Reportable 12/03/19 09:16 Elliptocytes Not Reportable 12/03/19 09:16 Acanthocytes (Spur) Not Reportable 12/03/19 09:16 Rouleaux Not Reportable 12/03/19 09:16 Hemoglobin C Crystals Not Reportable 12/03/19 09:16 Schistocytes Not Reportable 12/03/19 09:16 Malaria parasites Not Reportable 12/03/19 09:16 Daniel Bodies Not Reportable 12/03/19 09:16 Hem Pathologist Commnt No 12/03/19 09:16 Sodium 142 mmol/L (137-145) 12/03/19 09:16 Potassium 4.4 mmol/L (3.6-5.0) 12/03/19 09:16 Chloride 105.5 mmol/L (98-107) 12/03/19 09:16 Carbon Dioxide 22 mmol/L (22-30) 12/03/19 09:16 Anion Gap 19 mmol/L 12/03/19 09:16 BUN 18 mg/dL (7-17) H 12/03/19 09:16 Creatinine 0.9 mg/dL (0.7-1.2) 12/03/19 09:16 Estimated GFR > 60 ml/min 12/03/19 09:16 BUN/Creatinine Ratio 20 % 12/03/19 09:16 Glucose 118 mg/dL (65-100) H 12/03/19 09:16 POC Glucose 78 (70-105) 12/03/19 08:04 Hemoglobin A1c 4.7 % (4-6) 12/03/19 09:16 Calcium 9.5 mg/dL (8.4-10.2) 12/03/19 09:16 Total Bilirubin 0.30 mg/dL (0.1-1.2) 12/03/19 09:16 AST 18 units/L (5-40) 12/03/19 09:16 ALT 15 units/L (7-56) 12/03/19 09:16 Alkaline Phosphatase 69 units/L (35-129) 12/03/19 09:16 Total Protein 6.8 g/dL (6.3-8.2) 12/03/19 09:16 Albumin 4.1 g/dL (3.9-5) 12/03/19 09:16 Albumin/Globulin Ratio 1.5 % 12/03/19 09:16 Triglycerides 70 mg/dL (2-149) 12/03/19 09:16 Cholesterol 234 mg/dL (50-199) H 12/03/19 09:16 LDL Cholesterol Direct 181 mg/dL (50-130) H 12/03/19 09:16 HDL Cholesterol 57 mg/dL (40-59) 12/03/19 09:16 Cholesterol/HDL Ratio 4.10 % 12/03/19 09:16 TSH 4.680 mlU/mL (0.270-4.200) H 12/03/19 09:16 Last Vital Signs Temp 97.9 F 12/05/19 09:40 Pulse 88 12/05/19 09:40 Resp 16 12/05/19 09:40 BP 120/81 12/05/19 09:40 Pulse Ox 98 12/05/19 09:40
[2019-12-06] MEDS: risperiDONE 1 MG TAB PO SCH ×2 (10:27→21:40)
[2019-12-06] MEDS: VENLAFAXINE XR 75 MG CAP PO SCH (10:27)
[2019-12-06] MEDS: HALOPERIDOL LACTATE 5 MG/1 ML INJ IM PRN (12:06)
[2019-12-06] MEDS: MELATONIN 5 MG TAB PO SCH (21:39)
[2019-12-06] MEDS: MIRTAZAPINE 15 MG TAB PO SCH (21:39)
[2019-12-07] MEDS: LORazepam 2 MG/ML VIAL IM SCH ×3 (00:35→16:05)
--- NOTE | 2019-12-07 09:12 | Progress Note ---
Subjective Date of service: 12/07/19 Principal diagnosis: Dementia, Catatonic Schizophrenia Subjective Comment: SUBJECTIVE No changes. Patient continues to be catatonic. She did not receive Invega Sustenna prescribed yesterday due to cost. Nursing report: Pt is alert, selectively mute, spent her evening in bed, did not response to staff when spoken to, refused bedtime snack, refused po medication, haldol 5mg IM given per ordered if pt refuses po med, pt tolerated medication, no signs of distress noted. Reason for continuing admission: Patient is Catatonic REVIEW OF SYSTEMS ROS cannot be reliably obtained from the patient due to her confusion MENTAL STATUS EXAMINATION SLIME - Psychiatric problem (1) Schizophrenia, Catatonic Current Visit: Yes Status: Acute Qualifiers: Schizophrenia type: unspecified Qualified Code(s): F20.9 - Schizophrenia, unspecified (2) Dementia with behavioral disturbance Current Visit: Yes Status: Acute Treatment Plan Patient will be admitted for inpatient psychiatric evaluation, medication adjustment and close monitoring The patient's behavior, mood, sleep and appetite will be closely monitored. Patient will be enrolled in individual and group therapeutic sessions and encouraged to attend. Patient will be provided with a safe and structured environment. Patient's physical health needs will be addressed by the Hospitalist. Hospitalist Consulted Labs including CBC, CMP, Lipid profile and Hemoglobin A1C ordered Social Assessment will be completed and the Production Bow Maker will work with patient and family to ensure a suitable and safe disposition Medication adjustment will be made as clinically indicated Medication adjustment made today: None ELOS 7 days. Legal Status: Involuntary Assessment and Plan - Patient Problems (1) Schizophrenia Current Visit: Yes Status: Acute Qualifiers: Schizophrenia type: unspecified Qualified Code(s): F20.9 - Schizophrenia, unspecified (2) Dementia with behavioral disturbance Current Visit: Yes Status: Acute Medications and Allergies Allergies Allergy/AdvReac Type Severity Reaction Status Date / Time No Known Allergies Allergy Verified 12/02/19 18:17 Home Medications Medication Instructions Recorded Confirmed Last Taken Type Melatonin [Melatonin 5MG TAB] 5 mg PO QHS 12/03/19 12/03/19 Unknown History Mirtazapine [Remeron 15mg TAB] 15 mg PO QHS 12/03/19 12/03/19 Unknown History Venlafaxine Xr [Effexor Xr] 75 mg PO QDAY 12/03/19 12/03/19 Unknown History risperiDONE [RisperDAL] 2 mg PO QHS 12/03/19 12/03/19 Unknown History Paliperidone Palmitate(Nf) [Invega 234 mg IM ONCE #1 ml 12/06/19 Unknown Rx Sustenna(Nf)] Active Meds: Active Medications Haloperidol (Haldol) 5 mg PO Q6H PRN PRN Reason: Agitation Haloperidol Lactate (Haldol) 5 mg IM Q6H PRN PRN Reason: Agitation Last Admin: 12/06/19 12:06 Dose: 5 mg Documented by: Lorazepam (Ativan) 2 mg PO Q6H PRN PRN Reason: Agitation Lorazepam (Ativan) 2 mg IM Q6H PRN PRN Reason: Agitation Last Admin: 12/03/19 04:28 Dose: 2 mg Documented by: Lorazepam (Ativan) 1 mg IM Q8H [facility] Last Admin: 12/07/19 08:09 Dose: 1 mg Documented by: Melatonin (Melatonin) 5 mg PO QHS [facility] Last Admin: 12/06/19 21:39 Dose: Not Given Documented by: Mirtazapine (Remeron) 15 mg PO QHS [facility] Last Admin: 12/06/19 21:39 Dose: Not Given Documented by: Risperidone (Risperdal) 2 mg PO BID [facility] Last Admin: 12/06/19 21:40 Dose: Not Given Documented by: Trazodone HCl (Desyrel) 50 mg PO QHS PRN PRN Reason: Insomnia Venlafaxine HCl (Effexor Xr) 75 mg PO QDAY [facility] Last Admin: 12/06/19 10:27 Dose: Not Given Documented by: Results - Results Labs/Vitals: Laboratory Last Values WBC 29.8 K/mm3 (4.5-11.0) H 12/03/19 09:16 RBC 3.92 M/mm3 (3.65-5.03) 12/03/19 09:16 Hgb 11.8 gm/dl (10.1-14.3) 12/03/19 09:16 Hct 37.0 % (30.3-42.9) 12/03/19 09:16 MCV 94 fl (79-97) 12/03/19 09:16 MCH 30 pg (28-32) 12/03/19 09:16 MCHC 32 % (30-34) 12/03/19 09:16 RDW 15.4 % (13.2-15.2) H 12/03/19 09:16 Plt Count 115 K/mm3 (140-440) L 12/03/19 09:16 Lymph % (Auto) Organ Pipe Maker Metal 12/03/19 09:16 Lymph # Organ Pipe Maker Metal 12/03/19 09:16 Add Manual Diff Complete 12/03/19 09:16 Total Counted 100 12/03/19 09:16 Seg Neutrophils % Organ Pipe Maker Metal 12/03/19 09:16 Seg Neuts % (Manual) 11.0 % (40.0-70.0) L 12/03/19 09:16 Band Neutrophils % 0 % 12/03/19 09:16 Lymphocytes % (Manual) 89.0 % (13.4-35.0) H 12/03/19 09:16 Reactive Lymphs % (Man) 0 % 12/03/19 09:16 Monocytes % (Manual) 0 % (0.0-7.3) 12/03/19 09:16 Eosinophils % (Manual) 0 % (0.0-4.3) 12/03/19 09:16 Basophils % (Manual) 0 % (0.0-1.8) 12/03/19 09:16 Metamyelocytes % 0 % 12/03/19 09:16 Myelocytes % 0 % 12/03/19 09:16 Promyelocytes % 0 % 12/03/19 09:16 Blast Cells % 0 % 12/03/19 09:16 Nucleated RBC % Not Reportable 12/03/19 09:16 Seg Neutrophils # Man 3.3 K/mm3 (1.8-7.7) 12/03/19 09:16 Band Neutrophils # 0.0 K/mm3 12/03/19 09:16 Lymphocytes # (Manual) 26.5 K/mm3 (1.2-5.4) H 12/03/19 09:16 Abs React Lymphs (Man) 0.0 K/mm3 12/03/19 09:16 Monocytes # (Manual) 0.0 K/mm3 (0.0-0.8) 12/03/19 09:16 Eosinophils # (Manual) 0.0 K/mm3 (0.0-0.4) 12/03/19 09:16 Basophils # (Manual) 0.0 K/mm3 (0.0-0.1) 12/03/19 09:16 Metamyelocytes # 0.0 K/mm3 12/03/19 09:16 Myelocytes # 0.0 K/mm3 12/03/19 09:16 Promyelocytes # 0.0 K/mm3 12/03/19 09:16 Blast Cells # 0.0 K/mm3 12/03/19 09:16 WBC Morphology Not Reportable 12/03/19 09:16 Hypersegmented Neuts Not Reportable 12/03/19 09:16 Hyposegmented Neuts Not Reportable 12/03/19 09:16 Hypogranular Neuts Not Reportable 12/03/19 09:16 Smudge Cells Not Reportable 12/03/19 09:16 Toxic Granulation Not Reportable 12/03/19 09:16 Toxic Vacuolation Not Reportable 12/03/19 09:16 Dohle Bodies Not Reportable 12/03/19 09:16 Pelger-Huet Anomaly Not Reportable 12/03/19 09:16 Libia Rods Not Reportable 12/03/19 09:16 Platelet Estimate Consistent w auto 12/03/19 09:16 Clumped Platelets Not Reportable 12/03/19 09:16 Plt Clumps, EDTA Not Reportable 12/03/19 09:16 Large Platelets Not Reportable 12/03/19 09:16 Giant Platelets Not Reportable 12/03/19 09:16 Platelet Satelliting Not Reportable 12/03/19 09:16 Plt Morphology Comment Not Reportable 12/03/19 09:16 RBC Morphology Not Reportable 12/03/19 09:16 Dimorphic RBCs Not Reportable 12/03/19 09:16 Polychromasia Not Reportable 12/03/19 09:16 Hypochromasia Not Reportable 12/03/19 09:16 Poikilocytosis Not Reportable 12/03/19 09:16 Anisocytosis Few 12/03/19 09:16 Microcytosis Few 12/03/19 09:16 Macrocytosis Few 12/03/19 09:16 Spherocytes Not Reportable 12/03/19 09:16 Pappenheimer Bodies Not Reportable 12/03/19 09:16 Sickle Cells Not Reportable 12/03/19 09:16 Target Cells Not Reportable 12/03/19 09:16 Tear Drop Cells Not Reportable 12/03/19 09:16 Ovalocytes Not Reportable 12/03/19 09:16 Helmet Cells Not Reportable 12/03/19 09:16 [place] Bodies Not Reportable 12/03/19 09:16 [place] Rings Not Reportable 12/03/19 09:16 [place] Cells Not Reportable 12/03/19 09:16 Bite Cells Not Reportable 12/03/19 09:16 Crenated Cell Not Reportable 12/03/19 09:16 Elliptocytes Not Reportable 12/03/19 09:16 Acanthocytes (Spur) Not Reportable 12/03/19 09:16 Rouleaux Not Reportable 12/03/19 09:16 Hemoglobin C Crystals Not Reportable 12/03/19 09:16 Schistocytes Not Reportable 12/03/19 09:16 Malaria parasites Not Reportable 12/03/19 09:16 Daniel Bodies Not Reportable 12/03/19 09:16 Hem Pathologist Commnt No 12/03/19 09:16 Sodium 142 mmol/L (137-145) 12/03/19 09:16 Potassium 4.4 mmol/L (3.6-5.0) 12/03/19 09:16 Chloride 105.5 mmol/L (98-107) 12/03/19 09:16 Carbon Dioxide 22 mmol/L (22-30) 12/03/19 09:16 Anion Gap 19 mmol/L 12/03/19 09:16 BUN 18 mg/dL (7-17) H 12/03/19 09:16 Creatinine 0.9 mg/dL (0.7-1.2) 12/03/19 09:16 Estimated GFR > 60 ml/min 12/03/19 09:16 BUN/Creatinine Ratio 20 % 12/03/19 09:16 Glucose 118 mg/dL (65-100) H 12/03/19 09:16 POC Glucose 78 (70-105) 12/03/19 08:04 Hemoglobin A1c 4.7 % (4-6) 12/03/19 09:16 Calcium 9.5 mg/dL (8.4-10.2) 12/03/19 09:16 Total Bilirubin 0.30 mg/dL (0.1-1.2) 12/03/19 09:16 AST 18 units/L (5-40) 12/03/19 09:16 ALT 15 units/L (7-56) 12/03/19 09:16 Alkaline Phosphatase 69 units/L (35-129) 12/03/19 09:16 Total Protein 6.8 g/dL (6.3-8.2) 12/03/19 09:16 Albumin 4.1 g/dL (3.9-5) 12/03/19 09:16 Albumin/Globulin Ratio 1.5 % 12/03/19 09:16 Triglycerides 70 mg/dL (2-149) 12/03/19 09:16 Cholesterol 234 mg/dL (50-199) H 12/03/19 09:16 LDL Cholesterol Direct 181 mg/dL (50-130) H 12/03/19 09:16 HDL Cholesterol 57 mg/dL (40-59) 12/03/19 09:16 Cholesterol/HDL Ratio 4.10 % 12/03/19 09:16 TSH 4.680 mlU/mL (0.270-4.200) H 12/03/19 09:16 Last Vital Signs Temp 97.9 F 12/05/19 09:40 Pulse 88 12/05/19 09:40 Resp 16 12/05/19 09:40 BP 120/81 12/05/19 09:40 Pulse Ox 98 12/05/19 09:40
[2019-12-07] MEDS: VENLAFAXINE XR 75 MG CAP PO SCH (09:59)
[2019-12-07] MEDS: risperiDONE 1 MG TAB PO SCH ×2 (09:59→21:33)
[2019-12-07] MEDS: HALOPERIDOL LACTATE 5 MG/1 ML INJ IM PRN ×2 (11:06→21:33)
[2019-12-07 12:42] LABS: Hematocrit 37.3 % (30.3-42.9); Mean Corpuscular HGB Conc 32 % (30-34); Mean Corpuscular Volume 94 fl (79-97); Platelet Count 123 K/mm3 (140-440); Red Blood Count 3.95 M/mm3 (3.65-5.03)
[2019-12-07 13:11] LABS: Basophils % (Manual) 0 % (0.0-1.8); Eosinophils % (Manual) 0 % (0.0-4.3); Monocytes % (Manual) 5.5 % (0.0-7.3); Total Cells Counted 200
[2019-12-07 13:12] LABS: Platelet Estimate Consistent w Auto; RBC Morphology Normal
[2019-12-07] MEDS: MELATONIN 5 MG TAB PO SCH (21:32)
[2019-12-07] MEDS: MIRTAZAPINE 15 MG TAB PO SCH (21:33)
--- NOTE | 2019-12-08 08:30 | Progress Note ---
Subjective Date of service: 12/08/19 Principal diagnosis: Dementia, Catatonic Schizophrenia Subjective Comment: SUBJECTIVE No changes. Patient continues to be catatonic. Nursing report: Patient refused v/s this pm. She also refused hs meds. In room with eyes wide opened. Haldol 5 mg IM given as order. When staff entered her room to give the injection, she stated "I want the police from [facility], [facility], and [facility]." She took the injection w/o resistance. Reason for continuing admission: Patient is Catatonic REVIEW OF SYSTEMS ROS cannot be reliably obtained from the patient due to her confusion MENTAL STATUS EXAMINATION SLIME - Psychiatric problem (1) Schizophrenia, Catatonic Current Visit: Yes Status: Acute Qualifiers: Schizophrenia type: unspecified Qualified Code(s): F20.9 - Schizophrenia, unspecified (2) Dementia with behavioral disturbance Current Visit: Yes Status: Acute Treatment Plan Patient will be admitted for inpatient psychiatric evaluation, medication adjustment and close monitoring The patient's behavior, mood, sleep and appetite will be closely monitored. Patient will be enrolled in individual and group therapeutic sessions and encouraged to attend. Patient will be provided with a safe and structured environment. Patient's physical health needs will be addressed by the Hospitalist. Hospitalist Consulted Labs including CBC, CMP, Lipid profile and Hemoglobin A1C ordered Social Assessment will be completed and the Culturist will work with patient and family to ensure a suitable and safe disposition Medication adjustment will be made as clinically indicated Medication adjustment made today: None ELOS 7 days. Legal Status: Involuntary Assessment and Plan - Patient Problems (1) Schizophrenia Current Visit: Yes Status: Acute Qualifiers: Schizophrenia type: unspecified Qualified Code(s): F20.9 - Schizophrenia, unspecified (2) Dementia with behavioral disturbance Current Visit: Yes Status: Acute Medications and Allergies Allergies Allergy/AdvReac Type Severity Reaction Status Date / Time No Known Allergies Allergy Verified 12/02/19 18:17 Home Medications Medication Instructions Recorded Confirmed Last Taken Type Melatonin [Melatonin 5MG TAB] 5 mg PO QHS 12/03/19 12/03/19 Unknown History Mirtazapine [Remeron 15mg TAB] 15 mg PO QHS 12/03/19 12/03/19 Unknown History Venlafaxine Xr [Effexor Xr] 75 mg PO QDAY 12/03/19 12/03/19 Unknown History risperiDONE [RisperDAL] 2 mg PO QHS 12/03/19 12/03/19 Unknown History Paliperidone Palmitate(Nf) [Invega 234 mg IM ONCE #1 ml 12/06/19 Unknown Rx Sustenna(Nf)] Active Meds: Active Medications Atorvastatin Calcium (Lipitor) 20 mg PO QHS [facility] Last Admin: 12/07/19 21:32 Dose: Not Given Documented by: Haloperidol (Haldol) 5 mg PO Q6H PRN PRN Reason: Agitation Haloperidol Lactate (Haldol) 5 mg IM Q6H PRN PRN Reason: Agitation Last Admin: 12/07/19 21:33 Dose: 5 mg Documented by: Lorazepam (Ativan) 2 mg PO Q6H PRN PRN Reason: Agitation Lorazepam (Ativan) 2 mg IM Q6H PRN PRN Reason: Agitation Last Admin: 12/03/19 04:28 Dose: 2 mg Documented by: Lorazepam (Ativan) 1 mg IM Q8H [facility] Last Admin: 12/08/19 00:00 Dose: Not Given Documented by: Melatonin (Melatonin) 5 mg PO QHS [facility] Last Admin: 12/07/19 21:32 Dose: Not Given Documented by: Mirtazapine (Remeron) 15 mg PO QHS [facility] Last Admin: 12/07/19 21:33 Dose: Not Given Documented by: Risperidone (Risperdal) 2 mg PO BID [facility] Last Admin: 12/07/19 21:33 Dose: Not Given Documented by: Trazodone HCl (Desyrel) 50 mg PO QHS PRN PRN Reason: Insomnia Venlafaxine HCl (Effexor Xr) 75 mg PO QDAY [facility] Last Admin: 12/07/19 09:59 Dose: Not Given Documented by: Results - Results Labs/Vitals: Laboratory Last Values WBC 28.7 K/mm3 (4.5-11.0) H 12/07/19 11:10 RBC 3.95 M/mm3 (3.65-5.03) 12/07/19 11:10 Hgb 12.0 gm/dl (10.1-14.3) 12/07/19 11:10 Hct 37.3 % (30.3-42.9) 12/07/19 11:10 MCV 94 fl (79-97) 12/07/19 11:10 MCH 30 pg (28-32) 12/07/19 11:10 MCHC 32 % (30-34) 12/07/19 11:10 RDW 16.0 % (13.2-15.2) H 12/07/19 11:10 Plt Count 123 K/mm3 (140-440) L 12/07/19 11:10 Lymph % (Auto) Physical Biochemist 12/07/19 11:10 Lymph # Physical Biochemist 12/07/19 11:10 Add Manual Diff Complete 12/07/19 11:10 Total Counted 200 12/07/19 11:10 Seg Neutrophils % Physical Biochemist 12/07/19 11:10 Seg Neuts % (Manual) 23.5 % (40.0-70.0) L 12/07/19 11:10 Band Neutrophils % 0 % 12/07/19 11:10 Lymphocytes % (Manual) 71.0 % (13.4-35.0) H 12/07/19 11:10 Reactive Lymphs % (Man) 0 % 12/07/19 11:10 Monocytes % (Manual) 5.5 % (0.0-7.3) 12/07/19 11:10 Eosinophils % (Manual) 0 % (0.0-4.3) 12/07/19 11:10 Basophils % (Manual) 0 % (0.0-1.8) 12/07/19 11:10 Metamyelocytes % 0 % 12/07/19 11:10 Myelocytes % 0 % 12/07/19 11:10 Promyelocytes % 0 % 12/07/19 11:10 Blast Cells % 0 % 12/07/19 11:10 Nucleated RBC % Not Reportable 12/07/19 11:10 Seg Neutrophils # Man 6.7 K/mm3 (1.8-7.7) 12/07/19 11:10 Band Neutrophils # 0.0 K/mm3 12/07/19 11:10 Lymphocytes # (Manual) 20.4 K/mm3 (1.2-5.4) H 12/07/19 11:10 Abs React Lymphs (Man) 0.0 K/mm3 12/07/19 11:10 Monocytes # (Manual) 1.6 K/mm3 (0.0-0.8) H 12/07/19 11:10 Eosinophils # (Manual) 0.0 K/mm3 (0.0-0.4) 12/07/19 11:10 Basophils # (Manual) 0.0 K/mm3 (0.0-0.1) 12/07/19 11:10 Metamyelocytes # 0.0 K/mm3 12/07/19 11:10 Myelocytes # 0.0 K/mm3 12/07/19 11:10 Promyelocytes # 0.0 K/mm3 12/07/19 11:10 Blast Cells # 0.0 K/mm3 12/07/19 11:10 WBC Morphology Not Reportable 12/07/19 11:10 Hypersegmented Neuts Not Reportable 12/07/19 11:10 Hyposegmented Neuts Not Reportable 12/07/19 11:10 Hypogranular Neuts Not Reportable 12/07/19 11:10 Smudge Cells Not Reportable 12/07/19 11:10 Toxic Granulation Not Reportable 12/07/19 11:10 Toxic Vacuolation Not Reportable 12/07/19 11:10 Dohle Bodies Not Reportable 12/07/19 11:10 Pelger-Huet Anomaly Not Reportable 12/07/19 11:10 Libia Rods Not Reportable 12/07/19 11:10 Platelet Estimate Consistent w auto 12/07/19 11:10 Clumped Platelets Not Reportable 12/07/19 11:10 Plt Clumps, EDTA Not Reportable 12/07/19 11:10 Large Platelets Not Reportable 12/07/19 11:10 Giant Platelets Not Reportable 12/07/19 11:10 Platelet Satelliting Not Reportable 12/07/19 11:10 Plt Morphology Comment Not Reportable 12/07/19 11:10 RBC Morphology Normal 12/07/19 11:10 Dimorphic RBCs Not Reportable 12/07/19 11:10 Polychromasia Not Reportable 12/07/19 11:10 Hypochromasia Not Reportable 12/07/19 11:10 Poikilocytosis Not Reportable 12/07/19 11:10 Anisocytosis Not Reportable 12/07/19 11:10 Microcytosis Not Reportable 12/07/19 11:10 Macrocytosis Not Reportable 12/07/19 11:10 Spherocytes Not Reportable 12/07/19 11:10 Pappenheimer Bodies Not Reportable 12/07/19 11:10 Sickle Cells Not Reportable 12/07/19 11:10 Target Cells Not Reportable 12/07/19 11:10 Tear Drop Cells Not Reportable 12/07/19 11:10 Ovalocytes Not Reportable 12/07/19 11:10 Helmet Cells Not Reportable 12/07/19 11:[address] [place] Bodies Not Reportable 12/07/19 11:10 [place] Rings Not Reportable 12/07/19 11:10 Kayla Cells Not Reportable 12/07/19 11:10 Bite Cells Not Reportable 12/07/19 11:10 Crenated Cell Not Reportable 12/07/19 11:10 Elliptocytes Not Reportable 12/07/19 11:10 Acanthocytes (Spur) Not Reportable 12/07/19 11:10 Rouleaux Not Reportable 12/07/19 11:10 Hemoglobin C Crystals Not Reportable 12/07/19 11:10 Schistocytes Not Reportable 12/07/19 11:10 Malaria parasites Not Reportable 12/07/19 11:10 Daniel Bodies Not Reportable 12/07/19 11:10 Hem Pathologist Commnt No 12/07/19 11:10 Sodium 142 mmol/L (137-145) 12/03/19 09:16 Potassium 4.4 mmol/L (3.6-5.0) 12/03/19 09:16 Chloride 105.5 mmol/L (98-107) 12/03/19 09:16 Carbon Dioxide 22 mmol/L (22-30) 12/03/19 09:16 Anion Gap 19 mmol/L 12/03/19 09:16 BUN 18 mg/dL (7-17) H 12/03/19 09:16 Creatinine 0.9 mg/dL (0.7-1.2) 12/03/19 09:16 Estimated GFR > 60 ml/min 12/03/19 09:16 BUN/Creatinine Ratio 20 % 12/03/19 09:16 Glucose 118 mg/dL (65-100) H 12/03/19 09:16 POC Glucose 78 (70-105) 12/03/19 08:04 Hemoglobin A1c 4.7 % (4-6) 12/03/19 09:16 Calcium 9.5 mg/dL (8.4-10.2) 12/03/19 09:16 Total Bilirubin 0.30 mg/dL (0.1-1.2) 12/03/19 09:16 AST 18 units/L (5-40) 12/03/19 09:16 ALT 15 units/L (7-56) 12/03/19 09:16 Alkaline Phosphatase 69 units/L (35-129) 12/03/19 09:16 Total Protein 6.8 g/dL (6.3-8.2) 12/03/19 09:16 Albumin 4.1 g/dL (3.9-5) 12/03/19 09:16 Albumin/Globulin Ratio 1.5 % 12/03/19 09:16 Triglycerides 70 mg/dL (2-149) 12/03/19 09:16 Cholesterol 234 mg/dL (50-199) H 12/03/19 09:16 LDL Cholesterol Direct 181 mg/dL (50-130) H 12/03/19 09:16 HDL Cholesterol 57 mg/dL (40-59) 12/03/19 09:16 Cholesterol/HDL Ratio 4.10 % 12/03/19 09:16 TSH 4.680 mlU/mL (0.270-4.200) H 12/03/19 09:16 Last Vital Signs Temp 98.3 F 12/07/19 08:08 Pulse 84 12/07/19 08:08 Resp 18 12/07/19 08:08 BP 130/70 12/07/19 08:08 Pulse Ox 99 12/07/19 08:08
[2019-12-08] MEDS: risperiDONE 1 MG TAB PO SCH ×2 (10:07→22:44)
[2019-12-08] MEDS: VENLAFAXINE XR 75 MG CAP PO SCH (10:08)
[2019-12-08] MEDS: LORazepam 2 MG/ML VIAL IM SCH ×3 (10:08→17:03)
[2019-12-08] MEDS: MELATONIN 5 MG TAB PO SCH (22:43)
[2019-12-08] MEDS: MIRTAZAPINE 15 MG TAB PO SCH (22:44)
[2019-12-08] MEDS: HALOPERIDOL LACTATE 5 MG/1 ML INJ IM PRN (22:44)
[2019-12-09] MEDS: LORazepam 2 MG/ML VIAL IM SCH ×3 (00:10→16:27)
[2019-12-09] MEDS ORDERED: WATER FOR INJ Sterile (PF) 10 ML ONE (09:03)
[2019-12-09] MEDS: LORazepam 2 MG/ML VIAL IM PRN (09:10)
[2019-12-09] MEDS: HALOPERIDOL LACTATE 5 MG/1 ML INJ IM PRN ×2 (09:15→22:03)
[2019-12-09] MEDS: risperiDONE 1 MG TAB PO SCH ×2 (09:21→22:01)
--- NOTE | 2019-12-09 10:47 | Progress Note ---
Subjective Date of service: 12/09/19 Principal diagnosis: Dementia, Catatonic Schizophrenia Subjective Comment: SUBJECTIVE Patient reviewed this morning. Per Nursing report: pt continues to refused po medication, haldol 5mg IM given as ordered if pt refuses po antipsychotic medication, ativan 1 mg IM given as well per ordered, pt tolerated med, pt is selectively mute, refused snack, but requested for cranberry juice, 2 cups of juice offered, spent her evening in bed, pt refused labs, vital signs stable, no distress noted. No changes. Patient continues to be catatonic. Reason for continuing admission: Patient is Catatonic REVIEW OF SYSTEMS ROS cannot be reliably obtained from the patient due to her confusion MENTAL STATUS EXAMINATION SLIME - Psychiatric problem (1) Schizophrenia, Catatonic Current Visit: Yes Status: Acute Qualifiers: Schizophrenia type: unspecified Qualified Code(s): F20.9 - Schizophrenia, unspecified (2) Dementia with behavioral disturbance Current Visit: Yes Status: Acute Treatment Plan Patient will be admitted for inpatient psychiatric evaluation, medication adjustment and close monitoring The patient's behavior, mood, sleep and appetite will be closely monitored. Patient will be enrolled in individual and group therapeutic sessions and encouraged to attend. Patient will be provided with a safe and structured environment. Patient's physical health needs will be addressed by the Hospitalist. Hospitalist Consulted Labs including CBC, CMP, Lipid profile and Hemoglobin A1C ordered Social Assessment will be completed and the Junior Paralegal will work with patient and family to ensure a suitable and safe disposition Medication adjustment will be made as clinically indicated Medication adjustment made today: None ELOS 7 days. Legal Status: Involuntary Assessment and Plan - Patient Problems (1) Schizophrenia Current Visit: Yes Status: Acute Qualifiers: Schizophrenia type: unspecified Qualified Code(s): F20.9 - Schizophrenia, unspecified (2) Dementia with behavioral disturbance Current Visit: Yes Status: Acute Medications and Allergies Allergies Allergy/AdvReac Type Severity Reaction Status Date / Time No Known Allergies Allergy Verified 12/02/19 18:17 Home Medications Medication Instructions Recorded Confirmed Last Taken Type Melatonin [Melatonin 5MG TAB] 5 mg PO QHS 12/03/19 12/03/19 Unknown History Mirtazapine [Remeron 15mg TAB] 15 mg PO QHS 12/03/19 12/03/19 Unknown History Venlafaxine Xr [Effexor Xr] 75 mg PO QDAY 12/03/19 12/03/19 Unknown History risperiDONE [RisperDAL] 2 mg PO QHS 12/03/19 12/03/19 Unknown History Paliperidone Palmitate(Nf) [Invega 234 mg IM ONCE #1 ml 12/06/19 Unknown Rx Sustenna(Nf)] Active Meds: Active Medications Atorvastatin Calcium (Lipitor) 20 mg PO QHS [facility] Last Admin: 12/08/19 22:43 Dose: Not Given Documented by: Haloperidol (Haldol) 5 mg PO Q6H PRN PRN Reason: Agitation Haloperidol Lactate (Haldol) 5 mg IM Q6H PRN PRN Reason: Agitation Last Admin: 12/09/19 09:15 Dose: 5 mg Documented by: Lorazepam (Ativan) 2 mg PO Q6H PRN PRN Reason: Agitation Lorazepam (Ativan) 2 mg IM Q6H PRN PRN Reason: Agitation Last Admin: 12/09/19 08:54 Dose: 2 mg Documented by: Lorazepam (Ativan) 1 mg IM Q8H [facility] Last Admin: 12/09/19 00:10 Dose: 1 mg Documented by: Melatonin (Melatonin) 5 mg PO QHS [facility] Last Admin: 12/08/19 22:43 Dose: Not Given Documented by: Mirtazapine (Remeron) 15 mg PO QHS [facility] Last Admin: 12/08/19 22:44 Dose: Not Given Documented by: Risperidone (Risperdal) 2 mg PO BID [facility] Last Admin: 12/08/19 22:44 Dose: Not Given Documented by: Trazodone HCl (Desyrel) 50 mg PO QHS PRN PRN Reason: Insomnia Venlafaxine HCl (Effexor Xr) 75 mg PO QDAY [facility] Last Admin: 12/08/19 10:08 Dose: Not Given Documented by: Results - Results Labs/Vitals: Laboratory Last Values WBC 28.7 K/mm3 (4.5-11.0) H 12/07/19 11:10 RBC 3.95 M/mm3 (3.65-5.03) 12/07/19 11:10 Hgb 12.0 gm/dl (10.1-14.3) 12/07/19 11:10 Hct 37.3 % (30.3-42.9) 12/07/19 11:10 MCV 94 fl (79-97) 12/07/19 11:10 MCH 30 pg (28-32) 12/07/19 11:10 MCHC 32 % (30-34) 12/07/19 11:10 RDW 16.0 % (13.2-15.2) H 12/07/19 11:10 Plt Count 123 K/mm3 (140-440) L 12/07/19 11:10 Lymph % (Auto) Review Manager 12/07/19 11:10 Lymph # Review Manager 12/07/19 11:10 Add Manual Diff Complete 12/07/19 11:10 Total Counted 200 12/07/19 11:10 Seg Neutrophils % Review Manager 12/07/19 11:10 Seg Neuts % (Manual) 23.5 % (40.0-70.0) L 12/07/19 11:10 Band Neutrophils % 0 % 12/07/19 11:10 Lymphocytes % (Manual) 71.0 % (13.4-35.0) H 12/07/19 11:10 Reactive Lymphs % (Man) 0 % 12/07/19 11:10 Monocytes % (Manual) 5.5 % (0.0-7.3) 12/07/19 11:10 Eosinophils % (Manual) 0 % (0.0-4.3) 12/07/19 11:10 Basophils % (Manual) 0 % (0.0-1.8) 12/07/19 11:10 Metamyelocytes % 0 % 12/07/19 11:10 Myelocytes % 0 % 12/07/19 11:10 Promyelocytes % 0 % 12/07/19 11:10 Blast Cells % 0 % 12/07/19 11:10 Nucleated RBC % Not Reportable 12/07/19 11:10 Seg Neutrophils # Man 6.7 K/mm3 (1.8-7.7) 12/07/19 11:10 Band Neutrophils # 0.0 K/mm3 12/07/19 11:10 Lymphocytes # (Manual) 20.4 K/mm3 (1.2-5.4) H 12/07/19 11:10 Abs React Lymphs (Man) 0.0 K/mm3 12/07/19 11:10 Monocytes # (Manual) 1.6 K/mm3 (0.0-0.8) H 12/07/19 11:10 Eosinophils # (Manual) 0.0 K/mm3 (0.0-0.4) 12/07/19 11:10 Basophils # (Manual) 0.0 K/mm3 (0.0-0.1) 12/07/19 11:10 Metamyelocytes # 0.0 K/mm3 12/07/19 11:10 Myelocytes # 0.0 K/mm3 12/07/19 11:10 Promyelocytes # 0.0 K/mm3 12/07/19 11:10 Blast Cells # 0.0 K/mm3 12/07/19 11:10 WBC Morphology Not Reportable 12/07/19 11:10 Hypersegmented Neuts Not Reportable 12/07/19 11:10 Hyposegmented Neuts Not Reportable 12/07/19 11:10 Hypogranular Neuts Not Reportable 12/07/19 11:10 Smudge Cells Not Reportable 12/07/19 11:10 Toxic Granulation Not Reportable 12/07/19 11:10 Toxic Vacuolation Not Reportable 12/07/19 11:10 Dohle Bodies Not Reportable 12/07/19 11:10 Pelger-Huet Anomaly Not Reportable 12/07/19 11:10 Libia Rods Not Reportable 12/07/19 11:10 Platelet Estimate Consistent w auto 12/07/19 11:10 Clumped Platelets Not Reportable 12/07/19 11:10 Plt Clumps, EDTA Not Reportable 12/07/19 11:10 Large Platelets Not Reportable 12/07/19 11:10 Giant Platelets Not Reportable 12/07/19 11:10 Platelet Satelliting Not Reportable 12/07/19 11:10 Plt Morphology Comment Not Reportable 12/07/19 11:10 RBC Morphology Normal 12/07/19 11:10 Dimorphic RBCs Not Reportable 12/07/19 11:10 Polychromasia Not Reportable 12/07/19 11:10 Hypochromasia Not Reportable 12/07/19 11:10 Poikilocytosis Not Reportable 12/07/19 11:10 Anisocytosis Not Reportable 12/07/19 11:10 Microcytosis Not Reportable 12/07/19 11:10 Macrocytosis Not Reportable 12/07/19 11:10 Spherocytes Not Reportable 12/07/19 11:10 Pappenheimer Bodies Not Reportable 12/07/19 11:10 Sickle Cells Not Reportable 12/07/19 11:10 Target Cells Not Reportable 12/07/19 11:10 Tear Drop Cells Not Reportable 12/07/19 11:10 Ovalocytes Not Reportable 12/07/19 11:10 Helmet Cells Not Reportable 12/07/19 11:10 Claire-[place] Bodies Not Reportable 12/07/19 11:10 [place] Rings Not Reportable 12/07/19 11:10 Kayla Cells Not Reportable 12/07/19 11:10 Bite Cells Not Reportable 12/07/19 11:10 Crenated Cell Not Reportable 12/07/19 11:10 Elliptocytes Not Reportable 12/07/19 11:10 Acanthocytes (Spur) Not Reportable 12/07/19 11:10 Rouleaux Not Reportable 12/07/19 11:10 Hemoglobin C Crystals Not Reportable 12/07/19 11:10 Schistocytes Not Reportable 12/07/19 11:10 Malaria parasites Not Reportable 12/07/19 11:10 Daniel Bodies Not Reportable 12/07/19 11:10 Hem Pathologist Commnt No 12/07/19 11:10 Sodium 142 mmol/L (137-145) 12/03/19 09:16 Potassium 4.4 mmol/L (3.6-5.0) 12/03/19 09:16 Chloride 105.5 mmol/L (98-107) 12/03/19 09:16 Carbon Dioxide 22 mmol/L (22-30) 12/03/19 09:16 Anion Gap 19 mmol/L 12/03/19 09:16 BUN 18 mg/dL (7-17) H 12/03/19 09:16 Creatinine 0.9 mg/dL (0.7-1.2) 12/03/19 09:16 Estimated GFR > 60 ml/min 12/03/19 09:16 BUN/Creatinine Ratio 20 % 12/03/19 09:16 Glucose 118 mg/dL (65-100) H 12/03/19 09:16 POC Glucose 78 (70-105) 12/03/19 08:04 Hemoglobin A1c 4.7 % (4-6) 12/03/19 09:16 Calcium 9.5 mg/dL (8.4-10.2) 12/03/19 09:16 Total Bilirubin 0.30 mg/dL (0.1-1.2) 12/03/19 09:16 AST 18 units/L (5-40) 12/03/19 09:16 ALT 15 units/L (7-56) 12/03/19 09:16 Alkaline Phosphatase 69 units/L (35-129) 12/03/19 09:16 Total Protein 6.8 g/dL (6.3-8.2) 12/03/19 09:16 Albumin 4.1 g/dL (3.9-5) 12/03/19 09:16 Albumin/Globulin Ratio 1.5 % 12/03/19 09:16 Triglycerides 70 mg/dL (2-149) 12/03/19 09:16 Cholesterol 234 mg/dL (50-199) H 12/03/19 09:16 LDL Cholesterol Direct 181 mg/dL (50-130) H 12/03/19 09:16 HDL Cholesterol 57 mg/dL (40-59) 12/03/19 09:16 Cholesterol/HDL Ratio 4.10 % 12/03/19 09:16 TSH 4.680 mlU/mL (0.270-4.200) H 12/03/19 09:16 Last Vital Signs Temp 98.0 F 12/08/19 22:00 Pulse 92 H 12/08/19 22:00 Resp 18 12/08/19 22:00 BP 118/79 12/08/19 22:00 Pulse Ox 98 12/08/19 22:00
[2019-12-09] MEDS: MELATONIN 5 MG TAB PO SCH (22:01)
[2019-12-09] MEDS: MIRTAZAPINE 15 MG TAB PO SCH (22:01)
[2019-12-10] MEDS: LORazepam 2 MG/ML VIAL IM SCH ×5 (00:20→21:21)
--- NOTE | 2019-12-10 08:21 | Progress Note ---
Subjective Date of service: 12/10/19 Principal diagnosis: Dementia, Catatonic Schizophrenia Subjective Comment: SUBJECTIVE Patient reviewed this morning. Per Nursing report: Patient stayed in her room all evening. She refused a snack. She refused vital signs and po medications. Patient has blunted affect and answers with few words. She was cooperative with IM injection of Haldol and then Ativan even though she said nothing. No changes. Patient continues to be catatonic. Reason for continuing admission: Patient is Catatonic REVIEW OF SYSTEMS ROS cannot be reliably obtained from the patient due to her confusion MENTAL STATUS EXAMINATION SLIME - Psychiatric problem (1) Schizophrenia, Catatonic Current Visit: Yes Status: Acute Qualifiers: Schizophrenia type: unspecified Qualified Code(s): F20.9 - Schizophrenia, unspecified (2) Dementia with behavioral disturbance Current Visit: Yes Status: Acute Treatment Plan Patient will be admitted for inpatient psychiatric evaluation, medication adjustment and close monitoring The patient's behavior, mood, sleep and appetite will be closely monitored. Patient will be enrolled in individual and group therapeutic sessions and encouraged to attend. Patient will be provided with a safe and structured environment. Patient's physical health needs will be addressed by the Hospitalist. Hospitalist Consulted Labs including CBC, CMP, Lipid profile and Hemoglobin A1C ordered Social Assessment will be completed and the Corrugator Helper will work with patient and family to ensure a suitable and safe disposition Medication adjustment will be made as clinically indicated Medication adjustment made today: Increased Lorazepam to 1mg q6h im ELOS 7 days. Legal Status: Involuntary Assessment and Plan - Patient Problems (1) Schizophrenia Current Visit: Yes Status: Acute Qualifiers: Schizophrenia type: unspecified Qualified Code(s): F20.9 - Schizophrenia, unspecified (2) Dementia with behavioral disturbance Current Visit: Yes Status: Acute Medications and Allergies Allergies Allergy/AdvReac Type Severity Reaction Status Date / Time No Known Allergies Allergy Verified 12/02/19 18:17 Home Medications Medication Instructions Recorded Confirmed Last Taken Type Melatonin [Melatonin 5MG TAB] 5 mg PO QHS 12/03/19 12/03/19 Unknown History Mirtazapine [Remeron 15mg TAB] 15 mg PO QHS 12/03/19 12/03/19 Unknown History Venlafaxine Xr [Effexor Xr] 75 mg PO QDAY 12/03/19 12/03/19 Unknown History risperiDONE [RisperDAL] 2 mg PO QHS 12/03/19 12/03/19 Unknown History Paliperidone Palmitate(Nf) [Invega 234 mg IM ONCE #1 ml 12/06/19 Unknown Rx Sustenna(Nf)] Active Meds: Active Medications Atorvastatin Calcium (Lipitor) 20 mg PO QHS [facility] Last Admin: 12/09/19 22:01 Dose: Not Given Documented by: Haloperidol (Haldol) 5 mg PO Q6H PRN PRN Reason: Agitation Haloperidol Lactate (Haldol) 5 mg IM Q6H PRN PRN Reason: Agitation Last Admin: 12/09/19 22:03 Dose: 5 mg Documented by: Lorazepam (Ativan) 2 mg PO Q6H PRN PRN Reason: Agitation Lorazepam (Ativan) 2 mg IM Q6H PRN PRN Reason: Agitation Last Admin: 12/03/19 04:28 Dose: 2 mg Documented by: Lorazepam (Ativan) 1 mg IM Q8H [facility] Last Admin: 12/10/19 00:20 Dose: 1 mg Documented by: Melatonin (Melatonin) 5 mg PO QHS [facility] Last Admin: 12/09/19 22:01 Dose: Not Given Documented by: Mirtazapine (Remeron) 15 mg PO QHS [facility] Last Admin: 12/09/19 22:01 Dose: Not Given Documented by: Risperidone (Risperdal) 2 mg PO BID [facility] Last Admin: 12/09/19 22:01 Dose: Not Given Documented by: Trazodone HCl (Desyrel) 50 mg PO QHS PRN PRN Reason: Insomnia Venlafaxine HCl (Effexor Xr) 75 mg PO QDAY [facility] Last Admin: 12/08/19 10:08 Dose: Not Given Documented by: Results - Results Labs/Vitals: Laboratory Last Values WBC 28.7 K/mm3 (4.5-11.0) H 12/07/19 11:10 RBC 3.95 M/mm3 (3.65-5.03) 12/07/19 11:10 Hgb 12.0 gm/dl (10.1-14.3) 12/07/19 11:10 Hct 37.3 % (30.3-42.9) 12/07/19 11:10 MCV 94 fl (79-97) 12/07/19 11:10 MCH 30 pg (28-32) 12/07/19 11:10 MCHC 32 % (30-34) 12/07/19 11:10 RDW 16.0 % (13.2-15.2) H 12/07/19 11:10 Plt Count 123 K/mm3 (140-440) L 12/07/19 11:10 Lymph % (Auto) Student Liaison Officer 12/07/19 11:10 Lymph # Student Liaison Officer 12/07/19 11:10 Add Manual Diff Complete 12/07/19 11:10 Total Counted 200 12/07/19 11:10 Seg Neutrophils % Student Liaison Officer 12/07/19 11:10 Seg Neuts % (Manual) 23.5 % (40.0-70.0) L 12/07/19 11:10 Band Neutrophils % 0 % 12/07/19 11:10 Lymphocytes % (Manual) 71.0 % (13.4-35.0) H 12/07/19 11:10 Reactive Lymphs % (Man) 0 % 12/07/19 11:10 Monocytes % (Manual) 5.5 % (0.0-7.3) 12/07/19 11:10 Eosinophils % (Manual) 0 % (0.0-4.3) 12/07/19 11:10 Basophils % (Manual) 0 % (0.0-1.8) 12/07/19 11:10 Metamyelocytes % 0 % 12/07/19 11:10 Myelocytes % 0 % 12/07/19 11:10 Promyelocytes % 0 % 12/07/19 11:10 Blast Cells % 0 % 12/07/19 11:10 Nucleated RBC % Not Reportable 12/07/19 11:10 Seg Neutrophils # Man 6.7 K/mm3 (1.8-7.7) 12/07/19 11:10 Band Neutrophils # 0.0 K/mm3 12/07/19 11:10 Lymphocytes # (Manual) 20.4 K/mm3 (1.2-5.4) H 12/07/19 11:10 Abs React Lymphs (Man) 0.0 K/mm3 12/07/19 11:10 Monocytes # (Manual) 1.6 K/mm3 (0.0-0.8) H 12/07/19 11:10 Eosinophils # (Manual) 0.0 K/mm3 (0.0-0.4) 12/07/19 11:10 Basophils # (Manual) 0.0 K/mm3 (0.0-0.1) 12/07/19 11:10 Metamyelocytes # 0.0 K/mm3 12/07/19 11:10 Myelocytes # 0.0 K/mm3 12/07/19 11:10 Promyelocytes # 0.0 K/mm3 12/07/19 11:10 Blast Cells # 0.0 K/mm3 12/07/19 11:10 WBC Morphology Not Reportable 12/07/19 11:10 Hypersegmented Neuts Not Reportable 12/07/19 11:10 Hyposegmented Neuts Not Reportable 12/07/19 11:10 Hypogranular Neuts Not Reportable 12/07/19 11:10 Smudge Cells Not Reportable 12/07/19 11:10 Toxic Granulation Not Reportable 12/07/19 11:10 Toxic Vacuolation Not Reportable 12/07/19 11:10 Dohle Bodies Not Reportable 12/07/19 11:10 Pelger-Huet Anomaly Not Reportable 12/07/19 11:10 Libia Rods Not Reportable 12/07/19 11:10 Platelet Estimate Consistent w auto 12/07/19 11:10 Clumped Platelets Not Reportable 12/07/19 11:10 Plt Clumps, EDTA Not Reportable 12/07/19 11:10 Large Platelets Not Reportable 12/07/19 11:10 Giant Platelets Not Reportable 12/07/19 11:10 Platelet Satelliting Not Reportable 12/07/19 11:10 Plt Morphology Comment Not Reportable 12/07/19 11:10 RBC Morphology Normal 12/07/19 11:10 Dimorphic RBCs Not Reportable 12/07/19 11:10 Polychromasia Not Reportable 12/07/19 11:10 Hypochromasia Not Reportable 12/07/19 11:10 Poikilocytosis Not Reportable 12/07/19 11:10 Anisocytosis Not Reportable 12/07/19 11:10 Microcytosis Not Reportable 12/07/19 11:10 Macrocytosis Not Reportable 12/07/19 11:10 Spherocytes Not Reportable 12/07/19 11:10 Pappenheimer Bodies Not Reportable 12/07/19 11:10 Sickle Cells Not Reportable 12/07/19 11:10 Target Cells Not Reportable 12/07/19 11:10 Tear Drop Cells Not Reportable 12/07/19 11:10 Ovalocytes Not Reportable 12/07/19 11:10 Helmet Cells Not Reportable 12/07/19 11:10 [place] Bodies Not Reportable 12/07/19 11:10 [place] Rings Not Reportable 12/07/19 11:10 [place] Cells Not Reportable 12/07/19 11:10 Bite Cells Not Reportable 12/07/19 11:10 Crenated Cell Not Reportable 12/07/19 11:10 Elliptocytes Not Reportable 12/07/19 11:10 Acanthocytes (Spur) Not Reportable 12/07/19 11:10 Rouleaux Not Reportable 12/07/19 11:10 Hemoglobin C Crystals Not Reportable 12/07/19 11:10 Schistocytes Not Reportable 12/07/19 11:10 Malaria parasites Not Reportable 12/07/19 11:10 Daniel Bodies Not Reportable 12/07/19 11:10 Hem Pathologist Commnt No 12/07/19 11:10 Sodium 142 mmol/L (137-145) 12/03/19 09:16 Potassium 4.4 mmol/L (3.6-5.0) 12/03/19 09:16 Chloride 105.5 mmol/L (98-107) 12/03/19 09:16 Carbon Dioxide 22 mmol/L (22-30) 12/03/19 09:16 Anion Gap 19 mmol/L 12/03/19 09:16 BUN 18 mg/dL (7-17) H 12/03/19 09:16 Creatinine 0.9 mg/dL (0.7-1.2) 12/03/19 09:16 Estimated GFR > 60 ml/min 12/03/19 09:16 BUN/Creatinine Ratio 20 % 12/03/19 09:16 Glucose 118 mg/dL (65-100) H 12/03/19 09:16 POC Glucose 78 (70-105) 12/03/19 08:04 Hemoglobin A1c 4.7 % (4-6) 12/03/19 09:16 Calcium 9.5 mg/dL (8.4-10.2) 12/03/19 09:16 Total Bilirubin 0.30 mg/dL (0.1-1.2) 12/03/19 09:16 AST 18 units/L (5-40) 12/03/19 09:16 ALT 15 units/L (7-56) 12/03/19 09:16 Alkaline Phosphatase 69 units/L (35-129) 12/03/19 09:16 Total Protein 6.8 g/dL (6.3-8.2) 12/03/19 09:16 Albumin 4.1 g/dL (3.9-5) 12/03/19 09:16 Albumin/Globulin Ratio 1.5 % 12/03/19 09:16 Triglycerides 70 mg/dL (2-149) 12/03/19 09:16 Cholesterol 234 mg/dL (50-199) H 12/03/19 09:16 LDL Cholesterol Direct 181 mg/dL (50-130) H 12/03/19 09:16 HDL Cholesterol 57 mg/dL (40-59) 12/03/19 09:16 Cholesterol/HDL Ratio 4.10 % 12/03/19 09:16 TSH 4.680 mlU/mL (0.270-4.200) H 12/03/19 09:16 Last Vital Signs Temp 98.0 F 12/08/19 22:00 Pulse 92 H 12/08/19 22:00 Resp 18 12/08/19 22:00 BP 118/79 12/08/19 22:00 Pulse Ox 98 12/08/19 22:00
[2019-12-10] MEDS: HALOPERIDOL LACTATE 5 MG/1 ML INJ IM PRN (12:30)
[2019-12-10] MEDS: risperiDONE 1 MG TAB PO SCH ×2 (12:30→21:44)
[2019-12-10] MEDS: VENLAFAXINE XR 75 MG CAP PO SCH (12:30)
[2019-12-10] MEDS: MELATONIN 5 MG TAB PO SCH (21:44)
[2019-12-10] MEDS: MIRTAZAPINE 15 MG TAB PO SCH (21:44)
[2019-12-11] MEDS: LORazepam 2 MG/ML VIAL IM SCH ×5 (03:15→21:15)
--- NOTE | 2019-12-11 07:25 | Progress Note ---
Subjective Date of service: 12/11/19 Principal diagnosis: Dementia, Catatonic Schizophrenia Subjective Comment: SUBJECTIVE Patient reviewed this morning. Per Nursing report: Received pt in bed laying down with eyes opened and flat affect. Kept mute and would not respond to questions. No sign of pain or distress observed. No changes. Patient continues to be catatonic. Reason for continuing admission: Patient is Catatonic REVIEW OF SYSTEMS ROS cannot be reliably obtained from the patient due to her confusion MENTAL STATUS EXAMINATION SLIME - Psychiatric problem (1) Schizophrenia, Catatonic Current Visit: Yes Status: Acute Qualifiers: Schizophrenia type: unspecified Qualified Code(s): F20.9 - Schizophrenia, unspecified (2) Dementia with behavioral disturbance Current Visit: Yes Status: Acute Treatment Plan Patient will be admitted for inpatient psychiatric evaluation, medication adjustment and close monitoring The patient's behavior, mood, sleep and appetite will be closely monitored. Patient will be enrolled in individual and group therapeutic sessions and encouraged to attend. Patient will be provided with a safe and structured environment. Patient's physical health needs will be addressed by the Hospitalist. Hospitalist Consulted Labs including CBC, CMP, Lipid profile and Hemoglobin A1C ordered Social Assessment will be completed and the Broadcast Field Supervisor will work with patient and family to ensure a suitable and safe disposition Medication adjustment will be made as clinically indicated Medication adjustment made today: Increased Lorazepam to 1mg q6h im ELOS 7 days. Legal Status: Involuntary Assessment and Plan - Patient Problems (1) Schizophrenia Current Visit: Yes Status: Acute Qualifiers: Schizophrenia type: unspecified Qualified Code(s): F20.9 - Schizophrenia, unspecified (2) Dementia with behavioral disturbance Current Visit: Yes Status: Acute Medications and Allergies Allergies Allergy/AdvReac Type Severity Reaction Status Date / Time No Known Allergies Allergy Verified 12/02/19 18:17 Home Medications Medication Instructions Recorded Confirmed Last Taken Type Melatonin [Melatonin 5MG TAB] 5 mg PO QHS 12/03/19 12/03/19 Unknown History Mirtazapine [Remeron 15mg TAB] 15 mg PO QHS 12/03/19 12/03/19 Unknown History Venlafaxine Xr [Effexor Xr] 75 mg PO QDAY 12/03/19 12/03/19 Unknown History risperiDONE [RisperDAL] 2 mg PO QHS 12/03/19 12/03/19 Unknown History Paliperidone Palmitate(Nf) [Invega 234 mg IM ONCE #1 ml 12/06/19 Unknown Rx Sustenna(Nf)] Active Meds: Active Medications Atorvastatin Calcium (Lipitor) 20 mg PO QHS [facility] Last Admin: 12/10/19 21:44 Dose: Not Given Documented by: Haloperidol (Haldol) 5 mg PO Q6H PRN PRN Reason: Agitation Haloperidol Lactate (Haldol) 5 mg IM Q6H PRN PRN Reason: Agitation Last Admin: 12/10/19 12:30 Dose: 5 mg Documented by: Lorazepam (Ativan) 2 mg PO Q6H PRN PRN Reason: Agitation Lorazepam (Ativan) 2 mg IM Q6H PRN PRN Reason: Agitation Last Admin: 12/03/19 04:28 Dose: 2 mg Documented by: Lorazepam (Ativan) 1 mg IM Q6H [facility] Last Admin: 12/11/19 03:15 Dose: Not Given Documented by: Melatonin (Melatonin) 5 mg PO QHS [facility] Last Admin: 12/10/19 21:44 Dose: Not Given Documented by: Mirtazapine (Remeron) 15 mg PO QHS [facility] Last Admin: 12/10/19 21:44 Dose: Not Given Documented by: Risperidone (Risperdal) 2 mg PO BID [facility] Last Admin: 12/10/19 21:44 Dose: Not Given Documented by: Trazodone HCl (Desyrel) 50 mg PO QHS PRN PRN Reason: Insomnia Venlafaxine HCl (Effexor Xr) 75 mg PO QDAY [facility] Last Admin: 12/10/19 12:30 Dose: Not Given Documented by: Results - Results Labs/Vitals: Laboratory Last Values WBC 28.7 K/mm3 (4.5-11.0) H 12/07/19 11:10 RBC 3.95 M/mm3 (3.65-5.03) 12/07/19 11:10 Hgb 12.0 gm/dl (10.1-14.3) 12/07/19 11:10 Hct 37.3 % (30.3-42.9) 12/07/19 11:10 MCV 94 fl (79-97) 12/07/19 11:10 MCH 30 pg (28-32) 12/07/19 11:10 MCHC 32 % (30-34) 12/07/19 11:10 RDW 16.0 % (13.2-15.2) H 12/07/19 11:10 Plt Count 123 K/mm3 (140-440) L 12/07/19 11:10 Lymph % (Auto) Telecommunications Network Engineer 12/07/19 11:10 Lymph # Telecommunications Network Engineer 12/07/19 11:10 Add Manual Diff Complete 12/07/19 11:10 Total Counted 200 12/07/19 11:10 Seg Neutrophils % Telecommunications Network Engineer 12/07/19 11:10 Seg Neuts % (Manual) 23.5 % (40.0-70.0) L 12/07/19 11:10 Band Neutrophils % 0 % 12/07/19 11:10 Lymphocytes % (Manual) 71.0 % (13.4-35.0) H 12/07/19 11:10 Reactive Lymphs % (Man) 0 % 12/07/19 11:10 Monocytes % (Manual) 5.5 % (0.0-7.3) 12/07/19 11:10 Eosinophils % (Manual) 0 % (0.0-4.3) 12/07/19 11:10 Basophils % (Manual) 0 % (0.0-1.8) 12/07/19 11:10 Metamyelocytes % 0 % 12/07/19 11:10 Myelocytes % 0 % 12/07/19 11:10 Promyelocytes % 0 % 12/07/19 11:10 Blast Cells % 0 % 12/07/19 11:10 Nucleated RBC % Not Reportable 12/07/19 11:10 Seg Neutrophils # Man 6.7 K/mm3 (1.8-7.7) 12/07/19 11:10 Band Neutrophils # 0.0 K/mm3 12/07/19 11:10 Lymphocytes # (Manual) 20.4 K/mm3 (1.2-5.4) H 12/07/19 11:10 Abs React Lymphs (Man) 0.0 K/mm3 12/07/19 11:10 Monocytes # (Manual) 1.6 K/mm3 (0.0-0.8) H 12/07/19 11:10 Eosinophils # (Manual) 0.0 K/mm3 (0.0-0.4) 12/07/19 11:10 Basophils # (Manual) 0.0 K/mm3 (0.0-0.1) 12/07/19 11:10 Metamyelocytes # 0.0 K/mm3 12/07/19 11:10 Myelocytes # 0.0 K/mm3 12/07/19 11:10 Promyelocytes # 0.0 K/mm3 12/07/19 11:10 Blast Cells # 0.0 K/mm3 12/07/19 11:10 WBC Morphology Not Reportable 12/07/19 11:10 Hypersegmented Neuts Not Reportable 12/07/19 11:10 Hyposegmented Neuts Not Reportable 12/07/19 11:10 Hypogranular Neuts Not Reportable 12/07/19 11:10 Smudge Cells Not Reportable 12/07/19 11:10 Toxic Granulation Not Reportable 12/07/19 11:10 Toxic Vacuolation Not Reportable 12/07/19 11:10 Dohle Bodies Not Reportable 12/07/19 11:10 Pelger-Huet Anomaly Not Reportable 12/07/19 11:10 Libia Rods Not Reportable 12/07/19 11:10 Platelet Estimate Consistent w auto 12/07/19 11:10 Clumped Platelets Not Reportable 12/07/19 11:10 Plt Clumps, EDTA Not Reportable 12/07/19 11:10 Large Platelets Not Reportable 12/07/19 11:10 Giant Platelets Not Reportable 12/07/19 11:10 Platelet Satelliting Not Reportable 12/07/19 11:10 Plt Morphology Comment Not Reportable 12/07/19 11:10 RBC Morphology Normal 12/07/19 11:10 Dimorphic RBCs Not Reportable 12/07/19 11:10 Polychromasia Not Reportable 12/07/19 11:10 Hypochromasia Not Reportable 12/07/19 11:10 Poikilocytosis Not Reportable 12/07/19 11:10 Anisocytosis Not Reportable 12/07/19 11:10 Microcytosis Not Reportable 12/07/19 11:10 Macrocytosis Not Reportable 12/07/19 11:10 Spherocytes Not Reportable 12/07/19 11:10 Pappenheimer Bodies Not Reportable 12/07/19 11:10 Sickle Cells Not Reportable 12/07/19 11:10 Target Cells Not Reportable 12/07/19 11:10 Tear Drop Cells Not Reportable 12/07/19 11:10 Ovalocytes Not Reportable 12/07/19 11:10 Helmet Cells Not Reportable 12/07/19 11:10 [place] Bodies Not Reportable 12/07/19 11:10 [place] Rings Not Reportable 12/07/19 11:10 [place] Cells Not Reportable 12/07/19 11:10 Bite Cells Not Reportable 12/07/19 11:10 Crenated Cell Not Reportable 12/07/19 11:10 Elliptocytes Not Reportable 12/07/19 11:10 Acanthocytes (Spur) Not Reportable 12/07/19 11:10 Rouleaux Not Reportable 12/07/19 11:10 Hemoglobin C Crystals Not Reportable 12/07/19 11:10 Schistocytes Not Reportable 12/07/19 11:10 Malaria parasites Not Reportable 12/07/19 11:10 Daniel Bodies Not Reportable 12/07/19 11:10 Hem Pathologist Commnt No 12/07/19 11:10 Sodium 142 mmol/L (137-145) 12/03/19 09:16 Potassium 4.4 mmol/L (3.6-5.0) 12/03/19 09:16 Chloride 105.5 mmol/L (98-107) 12/03/19 09:16 Carbon Dioxide 22 mmol/L (22-30) 12/03/19 09:16 Anion Gap 19 mmol/L 12/03/19 09:16 BUN 18 mg/dL (7-17) H 12/03/19 09:16 Creatinine 0.9 mg/dL (0.7-1.2) 12/03/19 09:16 Estimated GFR > 60 ml/min 12/03/19 09:16 BUN/Creatinine Ratio 20 % 12/03/19 09:16 Glucose 118 mg/dL (65-100) H 12/03/19 09:16 POC Glucose 78 (70-105) 12/03/19 08:04 Hemoglobin A1c 4.7 % (4-6) 12/03/19 09:16 Calcium 9.5 mg/dL (8.4-10.2) 12/03/19 09:16 Total Bilirubin 0.30 mg/dL (0.1-1.2) 12/03/19 09:16 AST 18 units/L (5-40) 12/03/19 09:16 ALT 15 units/L (7-56) 12/03/19 09:16 Alkaline Phosphatase 69 units/L (35-129) 12/03/19 09:16 Total Protein 6.8 g/dL (6.3-8.2) 12/03/19 09:16 Albumin 4.1 g/dL (3.9-5) 12/03/19 09:16 Albumin/Globulin Ratio 1.5 % 12/03/19 09:16 Triglycerides 70 mg/dL (2-149) 12/03/19 09:16 Cholesterol 234 mg/dL (50-199) H 12/03/19 09:16 LDL Cholesterol Direct 181 mg/dL (50-130) H 12/03/19 09:16 HDL Cholesterol 57 mg/dL (40-59) 12/03/19 09:16 Cholesterol/HDL Ratio 4.10 % 12/03/19 09:16 TSH 4.680 mlU/mL (0.270-4.200) H 12/03/19 09:16 Last Vital Signs Temp 97.4 F L 12/11/19 07:04 Pulse 82 12/11/19 07:04 Resp 18 12/11/19 07:04 BP 139/86 12/11/19 07:04 Pulse Ox 98 12/11/19 07:04
[2019-12-11] MEDS: VENLAFAXINE XR 75 MG CAP PO SCH (09:18)
[2019-12-11] MEDS: risperiDONE 1 MG TAB PO SCH ×2 (09:19→21:17)
[2019-12-11] MEDS: HALOPERIDOL LACTATE 5 MG/1 ML INJ IM PRN ×2 (11:37→21:16)
[2019-12-11] MEDS: MELATONIN 5 MG TAB PO SCH (21:17)
[2019-12-11] MEDS: MIRTAZAPINE 15 MG TAB PO SCH (21:17)
[2019-12-12] MEDS: LORazepam 2 MG/ML VIAL IM SCH ×4 (03:12→20:47)
--- NOTE | 2019-12-12 08:41 | Progress Note ---
Subjective Date of service: 12/12/19 Principal diagnosis: Dementia, Catatonic Schizophrenia Subjective Comment: SUBJECTIVE Patient reviewed this morning. Per Nursing report: Patient was in the activity room at times. She ate 100% of her snack. The patient continues to use a few words. She is polite during interactions. The patient refused her po medications this evening. She calmly allowed staff to give IM haldol and IM ativan. No changes. Patient continues to be catatonic. Reason for continuing admission: Patient is Catatonic REVIEW OF SYSTEMS ROS cannot be reliably obtained from the patient due to her confusion MENTAL STATUS EXAMINATION SLIME - Psychiatric problem (1) Schizophrenia, Catatonic Current Visit: Yes Status: Acute Qualifiers: Schizophrenia type: unspecified Qualified Code(s): F20.9 - Schizophrenia, unspecified (2) Dementia with behavioral disturbance Current Visit: Yes Status: Acute Treatment Plan Patient will be admitted for inpatient psychiatric evaluation, medication adjustment and close monitoring The patient's behavior, mood, sleep and appetite will be closely monitored. Patient will be enrolled in individual and group therapeutic sessions and encouraged to attend. Patient will be provided with a safe and structured environment. Patient's physical health needs will be addressed by the Hospitalist. Hospitalist Consulted Labs including CBC, CMP, Lipid profile and Hemoglobin A1C ordered Social Assessment will be completed and the Manager Epic will work with patient and family to ensure a suitable and safe disposition Medication adjustment will be made as clinically indicated Medication adjustment made today: Increased Lorazepam to 1mg q6h im ELOS 7 days. Legal Status: Involuntary Assessment and Plan - Patient Problems (1) Schizophrenia Current Visit: Yes Status: Acute Qualifiers: Schizophrenia type: unspecified Qualified Code(s): F20.9 - Schizophrenia, unspecified (2) Dementia with behavioral disturbance Current Visit: Yes Status: Acute Medications and Allergies Allergies Allergy/AdvReac Type Severity Reaction Status Date / Time No Known Allergies Allergy Verified 12/02/19 18:17 Home Medications Medication Instructions Recorded Confirmed Last Taken Type Melatonin [Melatonin 5MG TAB] 5 mg PO QHS 12/03/19 12/03/19 Unknown History Mirtazapine [Remeron 15mg TAB] 15 mg PO QHS 12/03/19 12/03/19 Unknown History Venlafaxine Xr [Effexor Xr] 75 mg PO QDAY 12/03/19 12/03/19 Unknown History risperiDONE [RisperDAL] 2 mg PO QHS 12/03/19 12/03/19 Unknown History Paliperidone Palmitate(Nf) [Invega 234 mg IM ONCE #1 ml 12/06/19 Unknown Rx Sustenna(Nf)] Active Meds: Active Medications Atorvastatin Calcium (Lipitor) 20 mg PO QHS [facility] Last Admin: 12/11/19 21:17 Dose: Not Given Documented by: Haloperidol (Haldol) 5 mg PO Q6H PRN PRN Reason: Agitation Haloperidol Lactate (Haldol) 5 mg IM Q6H PRN PRN Reason: Agitation Last Admin: 12/11/19 21:16 Dose: 5 mg Documented by: Lorazepam (Ativan) 2 mg PO Q6H PRN PRN Reason: Agitation Lorazepam (Ativan) 2 mg IM Q6H PRN PRN Reason: Agitation Last Admin: 12/03/19 04:28 Dose: 2 mg Documented by: Lorazepam (Ativan) 1 mg IM Q6H [facility] Last Admin: 12/12/19 03:12 Dose: 1 mg Documented by: Melatonin (Melatonin) 5 mg PO QHS [facility] Last Admin: 12/11/19 21:17 Dose: Not Given Documented by: Mirtazapine (Remeron) 15 mg PO QHS [facility] Last Admin: 12/11/19 21:17 Dose: Not Given Documented by: Risperidone (Risperdal) 2 mg PO BID [facility] Last Admin: 12/11/19 21:17 Dose: Not Given Documented by: Trazodone HCl (Desyrel) 50 mg PO QHS PRN PRN Reason: Insomnia Venlafaxine HCl (Effexor Xr) 75 mg PO QDAY [facility] Last Admin: 12/11/19 09:18 Dose: Not Given Documented by: Results - Results Labs/Vitals: Laboratory Last Values WBC 28.7 K/mm3 (4.5-11.0) H 12/07/19 11:10 RBC 3.95 M/mm3 (3.65-5.03) 12/07/19 11:10 Hgb 12.0 gm/dl (10.1-14.3) 12/07/19 11:10 Hct 37.3 % (30.3-42.9) 12/07/19 11:10 MCV 94 fl (79-97) 12/07/19 11:10 MCH 30 pg (28-32) 12/07/19 11:10 MCHC 32 % (30-34) 12/07/19 11:10 RDW 16.0 % (13.2-15.2) H 12/07/19 11:10 Plt Count 123 K/mm3 (140-440) L 12/07/19 11:10 Lymph % (Auto) Data Compiler 12/07/19 11:10 Lymph # Data Compiler 12/07/19 11:10 Add Manual Diff Complete 12/07/19 11:10 Total Counted 200 12/07/19 11:10 Seg Neutrophils % Data Compiler 12/07/19 11:10 Seg Neuts % (Manual) 23.5 % (40.0-70.0) L 12/07/19 11:10 Band Neutrophils % 0 % 12/07/19 11:10 Lymphocytes % (Manual) 71.0 % (13.4-35.0) H 12/07/19 11:10 Reactive Lymphs % (Man) 0 % 12/07/19 11:10 Monocytes % (Manual) 5.5 % (0.0-7.3) 12/07/19 11:10 Eosinophils % (Manual) 0 % (0.0-4.3) 12/07/19 11:10 Basophils % (Manual) 0 % (0.0-1.8) 12/07/19 11:10 Metamyelocytes % 0 % 12/07/19 11:10 Myelocytes % 0 % 12/07/19 11:10 Promyelocytes % 0 % 12/07/19 11:10 Blast Cells % 0 % 12/07/19 11:10 Nucleated RBC % Not Reportable 12/07/19 11:10 Seg Neutrophils # Man 6.7 K/mm3 (1.8-7.7) 12/07/19 11:10 Band Neutrophils # 0.0 K/mm3 12/07/19 11:10 Lymphocytes # (Manual) 20.4 K/mm3 (1.2-5.4) H 12/07/19 11:10 Abs React Lymphs (Man) 0.0 K/mm3 12/07/19 11:10 Monocytes # (Manual) 1.6 K/mm3 (0.0-0.8) H 12/07/19 11:10 Eosinophils # (Manual) 0.0 K/mm3 (0.0-0.4) 12/07/19 11:10 Basophils # (Manual) 0.0 K/mm3 (0.0-0.1) 12/07/19 11:10 Metamyelocytes # 0.0 K/mm3 12/07/19 11:10 Myelocytes # 0.0 K/mm3 12/07/19 11:10 Promyelocytes # 0.0 K/mm3 12/07/19 11:10 Blast Cells # 0.0 K/mm3 12/07/19 11:10 WBC Morphology Not Reportable 12/07/19 11:10 Hypersegmented Neuts Not Reportable 12/07/19 11:10 Hyposegmented Neuts Not Reportable 12/07/19 11:10 Hypogranular Neuts Not Reportable 12/07/19 11:10 Smudge Cells Not Reportable 12/07/19 11:10 Toxic Granulation Not Reportable 12/07/19 11:10 Toxic Vacuolation Not Reportable 12/07/19 11:10 Dohle Bodies Not Reportable 12/07/19 11:10 Pelger-Huet Anomaly Not Reportable 12/07/19 11:10 Libia Rods Not Reportable 12/07/19 11:10 Platelet Estimate Consistent w auto 12/07/19 11:10 Clumped Platelets Not Reportable 12/07/19 11:10 Plt Clumps, EDTA Not Reportable 12/07/19 11:10 Large Platelets Not Reportable 12/07/19 11:10 Giant Platelets Not Reportable 12/07/19 11:10 Platelet Satelliting Not Reportable 12/07/19 11:10 Plt Morphology Comment Not Reportable 12/07/19 11:10 RBC Morphology Normal 12/07/19 11:10 Dimorphic RBCs Not Reportable 12/07/19 11:10 Polychromasia Not Reportable 12/07/19 11:10 Hypochromasia Not Reportable 12/07/19 11:10 Poikilocytosis Not Reportable 12/07/19 11:10 Anisocytosis Not Reportable 12/07/19 11:10 Microcytosis Not Reportable 12/07/19 11:10 Macrocytosis Not Reportable 12/07/19 11:10 Spherocytes Not Reportable 12/07/19 11:10 Pappenheimer Bodies Not Reportable 12/07/19 11:10 Sickle Cells Not Reportable 12/07/19 11:10 Target Cells Not Reportable 12/07/19 11:10 Tear Drop Cells Not Reportable 12/07/19 11:10 Ovalocytes Not Reportable 12/07/19 11:10 Helmet Cells Not Reportable 12/07/19 11:10 [place] Bodies Not Reportable 12/07/19 11:10 [place] Rings Not Reportable 12/07/19 11:10 Kayla Cells Not Reportable 12/07/19 11:10 Bite Cells Not Reportable 12/07/19 11:10 Crenated Cell Not Reportable 12/07/19 11:10 Elliptocytes Not Reportable 12/07/19 11:10 Acanthocytes (Spur) Not Reportable 12/07/19 11:10 Rouleaux Not Reportable 12/07/19 11:10 Hemoglobin C Crystals Not Reportable 12/07/19 11:10 Schistocytes Not Reportable 12/07/19 11:10 Malaria parasites Not Reportable 12/07/19 11:10 Daniel Bodies Not Reportable 12/07/19 11:10 Hem Pathologist Commnt No 12/07/19 11:10 Sodium 142 mmol/L (137-145) 12/03/19 09:16 Potassium 4.4 mmol/L (3.6-5.0) 12/03/19 09:16 Chloride 105.5 mmol/L (98-107) 12/03/19 09:16 Carbon Dioxide 22 mmol/L (22-30) 12/03/19 09:16 Anion Gap 19 mmol/L 12/03/19 09:16 BUN 18 mg/dL (7-17) H 12/03/19 09:16 Creatinine 0.9 mg/dL (0.7-1.2) 12/03/19 09:16 Estimated GFR > 60 ml/min 12/03/19 09:16 BUN/Creatinine Ratio 20 % 12/03/19 09:16 Glucose 118 mg/dL (65-100) H 12/03/19 09:16 POC Glucose 78 (70-105) 12/03/19 08:04 Hemoglobin A1c 4.7 % (4-6) 12/03/19 09:16 Calcium 9.5 mg/dL (8.4-10.2) 12/03/19 09:16 Total Bilirubin 0.30 mg/dL (0.1-1.2) 12/03/19 09:16 AST 18 units/L (5-40) 12/03/19 09:16 ALT 15 units/L (7-56) 12/03/19 09:16 Alkaline Phosphatase 69 units/L (35-129) 12/03/19 09:16 Total Protein 6.8 g/dL (6.3-8.2) 12/03/19 09:16 Albumin 4.1 g/dL (3.9-5) 12/03/19 09:16 Albumin/Globulin Ratio 1.5 % 12/03/19 09:16 Triglycerides 70 mg/dL (2-149) 12/03/19 09:16 Cholesterol 234 mg/dL (50-199) H 12/03/19 09:16 LDL Cholesterol Direct 181 mg/dL (50-130) H 12/03/19 09:16 HDL Cholesterol 57 mg/dL (40-59) 12/03/19 09:16 Cholesterol/HDL Ratio 4.10 % 12/03/19 09:16 TSH 4.680 mlU/mL (0.270-4.200) H 12/03/19 09:16 Last Vital Signs Temp 97.4 F L 12/12/19 07:37 Pulse 89 12/12/19 07:37 Resp 18 12/12/19 07:37 BP 138/76 12/12/19 07:37 Pulse Ox 98 12/12/19 07:37
[2019-12-12] MEDS: VENLAFAXINE XR 75 MG CAP PO SCH ×2 (09:22)
[2019-12-12] MEDS: risperiDONE 1 MG TAB PO SCH ×2 (09:22→21:16)
[2019-12-12] MEDS: HALOPERIDOL LACTATE 5 MG/1 ML INJ IM PRN ×2 (09:24→21:16)
[2019-12-12] MEDS: MELATONIN 5 MG TAB PO SCH (21:15)
[2019-12-12] MEDS: MIRTAZAPINE 15 MG TAB PO SCH (21:16)
[2019-12-13] MEDS: LORazepam 2 MG/ML VIAL IM SCH ×4 (03:05→21:20)
[2019-12-13 07:25] LABS: Hemoglobin 11.9 gm/dl (10.1-14.3); Mean Corpuscular HGB Conc 32 % (30-34); Mean Corpuscular Volume 95 fl (79-97); Platelet Count 132 K/mm3 (140-440); Red Cell Distribution Width 15.9 % (13.2-15.2)
[2019-12-13 08:15] LABS: Free T4 (Free Thyroxine) 0.88 ng/dL (0.76-1.46)
[2019-12-13] MEDS: risperiDONE 1 MG TAB PO SCH ×3 (09:23→21:36)
[2019-12-13] MEDS: VENLAFAXINE XR 75 MG CAP PO SCH (09:23)
[2019-12-13] MEDS: HALOPERIDOL LACTATE 5 MG/1 ML INJ IM PRN ×2 (09:30→21:41)
--- NOTE | 2019-12-13 10:24 | Progress Note ---
Subjective Date of service: 12/13/19 Principal diagnosis: Dementia, Catatonic Schizophrenia Subjective Comment: SUBJECTIVE Patient reviewed this morning. Per Nursing report: Patient was in the activity room at times. She ate 100% of her snack. The patient continues to use a few words. She is polite during interactions. The patient refused her po medications this evening. She calmly allowed staff to give IM haldol and IM ativan. No changes. Patient continues to be catatonic. Reason for continuing admission: Patient is Catatonic REVIEW OF SYSTEMS ROS cannot be reliably obtained from the patient due to her confusion MENTAL STATUS EXAMINATION SLIME - Psychiatric problem (1) Schizophrenia, Catatonic Current Visit: Yes Status: Acute Qualifiers: Schizophrenia type: unspecified Qualified Code(s): F20.9 - Schizophrenia, unspecified (2) Dementia with behavioral disturbance Current Visit: Yes Status: Acute Treatment Plan Patient will be admitted for inpatient psychiatric evaluation, medication adjustment and close monitoring The patient's behavior, mood, sleep and appetite will be closely monitored. Patient will be enrolled in individual and group therapeutic sessions and encouraged to attend. Patient will be provided with a safe and structured environment. Patient's physical health needs will be addressed by the Hospitalist. Hospitalist Consulted Labs including CBC, CMP, Lipid profile and Hemoglobin A1C ordered Social Assessment will be completed and the Flooring Machine Operator will work with patient and family to ensure a suitable and safe disposition Medication adjustment will be made as clinically indicated Medication adjustment made today: Increased Lorazepam to 1mg q6h im ELOS 7 days. Legal Status: Involuntary Assessment and Plan - Patient Problems (1) Schizophrenia Current Visit: Yes Status: Acute Qualifiers: Schizophrenia type: unspecified Qualified Code(s): F20.9 - Schizophrenia, unspecified (2) Dementia with behavioral disturbance Current Visit: Yes Status: Acute Medications and Allergies Allergies Allergy/AdvReac Type Severity Reaction Status Date / Time No Known Allergies Allergy Verified 12/02/19 18:17 Home Medications Medication Instructions Recorded Confirmed Last Taken Type Melatonin [Melatonin 5MG TAB] 5 mg PO QHS 12/03/19 12/03/19 Unknown History Mirtazapine [Remeron 15mg TAB] 15 mg PO QHS 12/03/19 12/03/19 Unknown History Venlafaxine Xr [Effexor Xr] 75 mg PO QDAY 12/03/19 12/03/19 Unknown History risperiDONE [RisperDAL] 2 mg PO QHS 12/03/19 12/03/19 Unknown History Paliperidone Palmitate(Nf) [Invega 234 mg IM ONCE #1 ml 12/06/19 Unknown Rx Sustenna(Nf)] Active Meds: Active Medications Atorvastatin Calcium (Lipitor) 20 mg PO QHS [facility] Last Admin: 12/12/19 21:15 Dose: Not Given Documented by: Haloperidol (Haldol) 5 mg PO Q6H PRN PRN Reason: Agitation Haloperidol Lactate (Haldol) 5 mg IM Q6H PRN PRN Reason: Agitation Last Admin: 12/13/19 09:30 Dose: 5 mg Documented by: Lorazepam (Ativan) 2 mg PO Q6H PRN PRN Reason: Agitation Lorazepam (Ativan) 2 mg IM Q6H PRN PRN Reason: Agitation Last Admin: 12/03/19 04:28 Dose: 2 mg Documented by: Lorazepam (Ativan) 1 mg IM Q6H [facility] Last Admin: 12/13/19 09:18 Dose: 1 mg Documented by: Melatonin (Melatonin) 5 mg PO QHS [facility] Last Admin: 12/12/19 21:15 Dose: Not Given Documented by: Mirtazapine (Remeron) 15 mg PO QHS [facility] Last Admin: 12/12/19 21:16 Dose: Not Given Documented by: Risperidone (Risperdal) 2 mg PO BID [facility] Last Admin: 12/13/19 09:23 Dose: Not Given Documented by: Trazodone HCl (Desyrel) 50 mg PO QHS PRN PRN Reason: Insomnia Venlafaxine HCl (Effexor Xr) 75 mg PO QDAY [facility] Last Admin: 12/13/19 09:23 Dose: Not Given Documented by: Results - Results Labs/Vitals: Laboratory Last Values WBC 24.7 K/mm3 (4.5-11.0) H 12/13/19 07:15 RBC 3.90 M/mm3 (3.65-5.03) 12/13/19 07:15 Hgb 11.9 gm/dl (10.1-14.3) 12/13/19 07:15 Hct 37.0 % (30.3-42.9) 12/13/19 07:15 MCV 95 fl (79-97) 12/13/19 07:15 MCH 31 pg (28-32) 12/13/19 07:15 MCHC 32 % (30-34) 12/13/19 07:15 RDW 15.9 % (13.2-15.2) H 12/13/19 07:15 Plt Count 132 K/mm3 (140-440) L 12/13/19 07:15 Lymph % (Auto) German Teacher 12/07/19 11:10 Lymph # German Teacher 12/07/19 11:10 Add Manual Diff Complete 12/07/19 11:10 Total Counted 200 12/07/19 11:10 Seg Neutrophils % German Teacher 12/07/19 11:10 Seg Neuts % (Manual) 23.5 % (40.0-70.0) L 12/07/19 11:10 Band Neutrophils % 0 % 12/07/19 11:10 Lymphocytes % (Manual) 71.0 % (13.4-35.0) H 12/07/19 11:10 Reactive Lymphs % (Man) 0 % 12/07/19 11:10 Monocytes % (Manual) 5.5 % (0.0-7.3) 12/07/19 11:10 Eosinophils % (Manual) 0 % (0.0-4.3) 12/07/19 11:10 Basophils % (Manual) 0 % (0.0-1.8) 12/07/19 11:10 Metamyelocytes % 0 % 12/07/19 11:10 Myelocytes % 0 % 12/07/19 11:10 Promyelocytes % 0 % 12/07/19 11:10 Blast Cells % 0 % 12/07/19 11:10 Nucleated RBC % Not Reportable 12/07/19 11:10 Seg Neutrophils # Man 6.7 K/mm3 (1.8-7.7) 12/07/19 11:10 Band Neutrophils # 0.0 K/mm3 12/07/19 11:10 Lymphocytes # (Manual) 20.4 K/mm3 (1.2-5.4) H 12/07/19 11:10 Abs React Lymphs (Man) 0.0 K/mm3 12/07/19 11:10 Monocytes # (Manual) 1.6 K/mm3 (0.0-0.8) H 12/07/19 11:10 Eosinophils # (Manual) 0.0 K/mm3 (0.0-0.4) 12/07/19 11:10 Basophils # (Manual) 0.0 K/mm3 (0.0-0.1) 12/07/19 11:10 Metamyelocytes # 0.0 K/mm3 12/07/19 11:10 Myelocytes # 0.0 K/mm3 12/07/19 11:10 Promyelocytes # 0.0 K/mm3 12/07/19 11:10 Blast Cells # 0.0 K/mm3 12/07/19 11:10 WBC Morphology Not Reportable 12/07/19 11:10 Hypersegmented Neuts Not Reportable 12/07/19 11:10 Hyposegmented Neuts Not Reportable 12/07/19 11:10 Hypogranular Neuts Not Reportable 12/07/19 11:10 Smudge Cells Not Reportable 12/07/19 11:10 Toxic Granulation Not Reportable 12/07/19 11:10 Toxic Vacuolation Not Reportable 12/07/19 11:10 Dohle Bodies Not Reportable 12/07/19 11:10 Pelger-Huet Anomaly Not Reportable 12/07/19 11:10 Libia Rods Not Reportable 12/07/19 11:10 Platelet Estimate Consistent w auto 12/07/19 11:10 Clumped Platelets Not Reportable 12/07/19 11:10 Plt Clumps, EDTA Not Reportable 12/07/19 11:10 Large Platelets Not Reportable 12/07/19 11:10 Giant Platelets Not Reportable 12/07/19 11:10 Platelet Satelliting Not Reportable 12/07/19 11:10 Plt Morphology Comment Not Reportable 12/07/19 11:10 RBC Morphology Normal 12/07/19 11:10 Dimorphic RBCs Not Reportable 12/07/19 11:10 Polychromasia Not Reportable 12/07/19 11:10 Hypochromasia Not Reportable 12/07/19 11:10 Poikilocytosis Not Reportable 12/07/19 11:10 Anisocytosis Not Reportable 12/07/19 11:10 Microcytosis Not Reportable 12/07/19 11:10 Macrocytosis Not Reportable 12/07/19 11:10 Spherocytes Not Reportable 12/07/19 11:10 Pappenheimer Bodies Not Reportable 12/07/19 11:10 Sickle Cells Not Reportable 12/07/19 11:10 Target Cells Not Reportable 12/07/19 11:10 Tear Drop Cells Not Reportable 12/07/19 11:10 Ovalocytes Not Reportable 12/07/19 11:10 Helmet Cells Not Reportable 12/07/19 11:10 [place] Bodies Not Reportable 12/07/19 11:10 [place] Rings Not Reportable 12/07/19 11:10 Kayla Cells Not Reportable 12/07/19 11:10 Bite Cells Not Reportable 12/07/19 11:10 Crenated Cell Not Reportable 12/07/19 11:10 Elliptocytes Not Reportable 12/07/19 11:10 Acanthocytes (Spur) Not Reportable 12/07/19 11:10 Rouleaux Not Reportable 12/07/19 11:10 Hemoglobin C Crystals Not Reportable 12/07/19 11:10 Schistocytes Not Reportable 12/07/19 11:10 Malaria parasites Not Reportable 12/07/19 11:10 Daniel Bodies Not Reportable 12/07/19 11:10 Hem Pathologist Commnt No 12/07/19 11:10 Sodium 142 mmol/L (137-145) 12/03/19 09:16 Potassium 4.4 mmol/L (3.6-5.0) 12/03/19 09:16 Chloride 105.5 mmol/L (98-107) 12/03/19 09:16 Carbon Dioxide 22 mmol/L (22-30) 12/03/19 09:16 Anion Gap 19 mmol/L 12/03/19 09:16 BUN 18 mg/dL (7-17) H 12/03/19 09:16 Creatinine 0.9 mg/dL (0.7-1.2) 12/03/19 09:16 Estimated GFR > 60 ml/min 12/03/19 09:16 BUN/Creatinine Ratio 20 % 12/03/19 09:16 Glucose 118 mg/dL (65-100) H 12/03/19 09:16 POC Glucose 78 (70-105) 12/03/19 08:04 Hemoglobin A1c 4.7 % (4-6) 12/03/19 09:16 Calcium 9.5 mg/dL (8.4-10.2) 12/03/19 09:16 Total Bilirubin 0.30 mg/dL (0.1-1.2) 12/03/19 09:16 AST 18 units/L (5-40) 12/03/19 09:16 ALT 15 units/L (7-56) 12/03/19 09:16 Alkaline Phosphatase 69 units/L (35-129) 12/03/19 09:16 Total Protein 6.8 g/dL (6.3-8.2) 12/03/19 09:16 Albumin 4.1 g/dL (3.9-5) 12/03/19 09:16 Albumin/Globulin Ratio 1.5 % 12/03/19 09:16 Triglycerides 70 mg/dL (2-149) 12/03/19 09:16 Cholesterol 234 mg/dL (50-199) H 12/03/19 09:16 LDL Cholesterol Direct 181 mg/dL (50-130) H 12/03/19 09:16 HDL Cholesterol 57 mg/dL (40-59) 12/03/19 09:16 Cholesterol/HDL Ratio 4.10 % 12/03/19 09:16 TSH 1.430 mlU/mL (0.270-4.200) 12/13/19 07:15 Free T4 0.88 ng/dL (0.76-1.46) 12/13/19 07:15 Last Vital Signs Temp 98.5 F 12/12/19 20:14 Pulse 88 12/12/19 20:14 Resp 18 12/12/19 20:14 BP 118/79 12/12/19 20:14 Pulse Ox 97 12/12/19 20:14
[2019-12-13] MEDS: LORazepam 2 MG/ML VIAL IM PRN (15:06)
[2019-12-13] MEDS: MELATONIN 5 MG TAB PO SCH ×2 (21:18→21:38)
[2019-12-13] MEDS: MIRTAZAPINE 15 MG TAB PO SCH ×2 (21:19→21:38)
[2019-12-14] MEDS: LORazepam 2 MG/ML VIAL IM SCH ×4 (03:37→20:24)
[2019-12-14] MEDS: HALOPERIDOL LACTATE 5 MG/1 ML INJ IM PRN ×2 (10:54→21:27)
--- NOTE | 2019-12-14 12:03 | Progress Note ---
Subjective Date of service: 12/14/19 Principal diagnosis: Dementia, Catatonic Schizophrenia Subjective Comment: SUBJECTIVE Patient reviewed this morning. Per Nursing report: Patient is more verbal, responding to questions. She is sitting up in bed combing her hair Patient is much more communicative this morning. She reports good mood, denies SI/HI/AVH/Paranoia. She does not feel ready going home today. She feels that she would be ready tomorrow. Reason for continuing admission: Patient is not compliant with medications. REVIEW OF SYSTEMS ROS cannot be reliably obtained from the patient due to her confusion MENTAL STATUS EXAMINATION SLIME - Psychiatric problem (1) Schizophrenia, Catatonic Current Visit: Yes Status: Acute Qualifiers: Schizophrenia type: unspecified Qualified Code(s): F20.9 - Schizophrenia, unspecified (2) Dementia with behavioral disturbance Current Visit: Yes Status: Acute Treatment Plan Patient will be admitted for inpatient psychiatric evaluation, medication adjustment and close monitoring The patient's behavior, mood, sleep and appetite will be closely monitored. Patient will be enrolled in individual and group therapeutic sessions and encouraged to attend. Patient will be provided with a safe and structured environment. Patient's physical health needs will be addressed by the Hospitalist. Hospitalist Consulted Labs including CBC, CMP, Lipid profile and Hemoglobin A1C ordered Social Assessment will be completed and the Ski Tow Operator will work with patient and family to ensure a suitable and safe disposition Medication adjustment will be made as clinically indicated Medication adjustment made today: Start Haldol Decanoate to ensure compliance ELOS 7 days. Legal Status: Involuntary Assessment and Plan - Patient Problems (1) Schizophrenia Current Visit: Yes Status: Acute Qualifiers: Schizophrenia type: unspecified Qualified Code(s): F20.9 - Schizophrenia, unspecified (2) Dementia with behavioral disturbance Current Visit: Yes Status: Acute Medications and Allergies Allergies Allergy/AdvReac Type Severity Reaction Status Date / Time No Known Allergies Allergy Verified 12/02/19 18:17 Home Medications Medication Instructions Recorded Confirmed Last Taken Type Melatonin [Melatonin 5MG TAB] 5 mg PO QHS 12/03/19 12/03/19 Unknown History Mirtazapine [Remeron 15mg TAB] 15 mg PO QHS 12/03/19 12/03/19 Unknown History Venlafaxine Xr [Effexor Xr] 75 mg PO QDAY 12/03/19 12/03/19 Unknown History risperiDONE [RisperDAL] 2 mg PO QHS 12/03/19 12/03/19 Unknown History Paliperidone Palmitate(Nf) [Invega 234 mg IM ONCE #1 ml 12/06/19 Unknown Rx Sustenna(Nf)] Active Meds: Active Medications Atorvastatin Calcium (Lipitor) 20 mg PO QHS [facility] Last Admin: 12/13/19 21:38 Dose: Not Given Documented by: Haloperidol (Haldol) 5 mg PO Q6H PRN PRN Reason: Agitation Haloperidol Lactate (Haldol) 5 mg IM Q6H PRN PRN Reason: Agitation Last Admin: 12/14/19 10:54 Dose: 5 mg Documented by: Lorazepam (Ativan) 2 mg PO Q6H PRN PRN Reason: Agitation Lorazepam (Ativan) 2 mg IM Q6H PRN PRN Reason: Agitation Last Admin: 12/03/19 04:28 Dose: 2 mg Documented by: Lorazepam (Ativan) 1 mg IM Q6H [facility] Last Admin: 12/14/19 10:53 Dose: 1 mg Documented by: Melatonin (Melatonin) 5 mg PO QHS [facility] Last Admin: 12/13/19 21:38 Dose: Not Given Documented by: Mirtazapine (Remeron) 15 mg PO QHS [facility] Last Admin: 12/13/19 21:38 Dose: Not Given Documented by: Risperidone (Risperdal) 2 mg PO BID [facility] Last Admin: 12/13/19 21:36 Dose: Not Given Documented by: Trazodone HCl (Desyrel) 50 mg PO QHS PRN PRN Reason: Insomnia Venlafaxine HCl (Effexor Xr) 75 mg PO QDAY [facility] Last Admin: 12/13/19 09:23 Dose: Not Given Documented by: Results - Results Labs/Vitals: Laboratory Last Values WBC 24.7 K/mm3 (4.5-11.0) H 12/13/19 07:15 RBC 3.90 M/mm3 (3.65-5.03) 12/13/19 07:15 Hgb 11.9 gm/dl (10.1-14.3) 12/13/19 07:15 Hct 37.0 % (30.3-42.9) 12/13/19 07:15 MCV 95 fl (79-97) 12/13/19 07:15 MCH 31 pg (28-32) 12/13/19 07:15 MCHC 32 % (30-34) 12/13/19 07:15 RDW 15.9 % (13.2-15.2) H 12/13/19 07:15 Plt Count 132 K/mm3 (140-440) L 12/13/19 07:15 Lymph % (Auto) Shake Out Worker 12/07/19 11:10 Lymph # Shake Out Worker 12/07/19 11:10 Add Manual Diff Complete 12/07/19 11:10 Total Counted 200 12/07/19 11:10 Seg Neutrophils % Shake Out Worker 12/07/19 11:10 Seg Neuts % (Manual) 23.5 % (40.0-70.0) L 12/07/19 11:10 Band Neutrophils % 0 % 12/07/19 11:10 Lymphocytes % (Manual) 71.0 % (13.4-35.0) H 12/07/19 11:10 Reactive Lymphs % (Man) 0 % 12/07/19 11:10 Monocytes % (Manual) 5.5 % (0.0-7.3) 12/07/19 11:10 Eosinophils % (Manual) 0 % (0.0-4.3) 12/07/19 11:10 Basophils % (Manual) 0 % (0.0-1.8) 12/07/19 11:10 Metamyelocytes % 0 % 12/07/19 11:10 Myelocytes % 0 % 12/07/19 11:10 Promyelocytes % 0 % 12/07/19 11:10 Blast Cells % 0 % 12/07/19 11:10 Nucleated RBC % Not Reportable 12/07/19 11:10 Seg Neutrophils # Man 6.7 K/mm3 (1.8-7.7) 12/07/19 11:10 Band Neutrophils # 0.0 K/mm3 12/07/19 11:10 Lymphocytes # (Manual) 20.4 K/mm3 (1.2-5.4) H 12/07/19 11:10 Abs React Lymphs (Man) 0.0 K/mm3 12/07/19 11:10 Monocytes # (Manual) 1.6 K/mm3 (0.0-0.8) H 12/07/19 11:10 Eosinophils # (Manual) 0.0 K/mm3 (0.0-0.4) 12/07/19 11:10 Basophils # (Manual) 0.0 K/mm3 (0.0-0.1) 12/07/19 11:10 Metamyelocytes # 0.0 K/mm3 12/07/19 11:10 Myelocytes # 0.0 K/mm3 12/07/19 11:10 Promyelocytes # 0.0 K/mm3 12/07/19 11:10 Blast Cells # 0.0 K/mm3 12/07/19 11:10 WBC Morphology Not Reportable 12/07/19 11:10 Hypersegmented Neuts Not Reportable 12/07/19 11:10 Hyposegmented Neuts Not Reportable 12/07/19 11:10 Hypogranular Neuts Not Reportable 12/07/19 11:10 Smudge Cells Not Reportable 12/07/19 11:10 Toxic Granulation Not Reportable 12/07/19 11:10 Toxic Vacuolation Not Reportable 12/07/19 11:10 Dohle Bodies Not Reportable 12/07/19 11:10 Pelger-Huet Anomaly Not Reportable 12/07/19 11:10 Libia Rods Not Reportable 12/07/19 11:10 Platelet Estimate Consistent w auto 12/07/19 11:10 Clumped Platelets Not Reportable 12/07/19 11:10 Plt Clumps, EDTA Not Reportable 12/07/19 11:10 Large Platelets Not Reportable 12/07/19 11:10 Giant Platelets Not Reportable 12/07/19 11:10 Platelet Satelliting Not Reportable 12/07/19 11:10 Plt Morphology Comment Not Reportable 12/07/19 11:10 RBC Morphology Normal 12/07/19 11:10 Dimorphic RBCs Not Reportable 12/07/19 11:10 Polychromasia Not Reportable 12/07/19 11:10 Hypochromasia Not Reportable 12/07/19 11:10 Poikilocytosis Not Reportable 12/07/19 11:10 Anisocytosis Not Reportable 12/07/19 11:10 Microcytosis Not Reportable 12/07/19 11:10 Macrocytosis Not Reportable 12/07/19 11:10 Spherocytes Not Reportable 12/07/19 11:10 Pappenheimer Bodies Not Reportable 12/07/19 11:10 Sickle Cells Not Reportable 12/07/19 11:10 Target Cells Not Reportable 12/07/19 11:10 Tear Drop Cells Not Reportable 12/07/19 11:10 Ovalocytes Not Reportable 12/07/19 11:10 Helmet Cells Not Reportable 12/07/19 11:10 [place] Bodies Not Reportable 12/07/19 11:10 [place] Rings Not Reportable 12/07/19 11:10 [place] Cells Not Reportable 12/07/19 11:10 Bite Cells Not Reportable 12/07/19 11:10 Crenated Cell Not Reportable 12/07/19 11:10 Elliptocytes Not Reportable 12/07/19 11:10 Acanthocytes (Spur) Not Reportable 12/07/19 11:10 Rouleaux Not Reportable 12/07/19 11:10 Hemoglobin C Crystals Not Reportable 12/07/19 11:10 Schistocytes Not Reportable 12/07/19 11:10 Malaria parasites Not Reportable 12/07/19 11:10 Daniel Bodies Not Reportable 12/07/19 11:10 Hem Pathologist Commnt No 12/07/19 11:10 Sodium 142 mmol/L (137-145) 12/03/19 09:16 Potassium 4.4 mmol/L (3.6-5.0) 12/03/19 09:16 Chloride 105.5 mmol/L (98-107) 12/03/19 09:16 Carbon Dioxide 22 mmol/L (22-30) 12/03/19 09:16 Anion Gap 19 mmol/L 12/03/19 09:16 BUN 18 mg/dL (7-17) H 12/03/19 09:16 Creatinine 0.9 mg/dL (0.7-1.2) 12/03/19 09:16 Estimated GFR > 60 ml/min 12/03/19 09:16 BUN/Creatinine Ratio 20 % 12/03/19 09:16 Glucose 118 mg/dL (65-100) H 12/03/19 09:16 POC Glucose 92 (70-105) 12/13/19 19:44 Hemoglobin A1c 4.7 % (4-6) 12/03/19 09:16 Calcium 9.5 mg/dL (8.4-10.2) 12/03/19 09:16 Total Bilirubin 0.30 mg/dL (0.1-1.2) 12/03/19 09:16 AST 18 units/L (5-40) 12/03/19 09:16 ALT 15 units/L (7-56) 12/03/19 09:16 Alkaline Phosphatase 69 units/L (35-129) 12/03/19 09:16 Total Protein 6.8 g/dL (6.3-8.2) 12/03/19 09:16 Albumin 4.1 g/dL (3.9-5) 12/03/19 09:16 Albumin/Globulin Ratio 1.5 % 12/03/19 09:16 Triglycerides 70 mg/dL (2-149) 12/03/19 09:16 Cholesterol 234 mg/dL (50-199) H 12/03/19 09:16 LDL Cholesterol Direct 181 mg/dL (50-130) H 12/03/19 09:16 HDL Cholesterol 57 mg/dL (40-59) 12/03/19 09:16 Cholesterol/HDL Ratio 4.10 % 12/03/19 09:16 TSH 1.430 mlU/mL (0.270-4.200) 12/13/19 07:15 Free T4 0.88 ng/dL (0.76-1.46) 12/13/19 07:15 Last Vital Signs Temp 97.7 F 12/13/19 19:27 Pulse 88 12/13/19 19:27 Resp 18 12/13/19 19:27 BP 101/64 12/13/19 19:27 Pulse Ox 98 12/13/19 19:27
[2019-12-14] MEDS ORDERED: HALOPERIDOL DECANOATE 100 MG/1 ML INJ IM SCH (13:00)
[2019-12-14] MEDS: risperiDONE 1 MG TAB PO SCH ×2 (13:37→21:29)
[2019-12-14] MEDS: VENLAFAXINE XR 75 MG CAP PO SCH (13:37)
[2019-12-14] MEDS: MELATONIN 5 MG TAB PO SCH (21:29)
[2019-12-14] MEDS: MIRTAZAPINE 15 MG TAB PO SCH (21:29)
[2019-12-15] MEDS: LORazepam 2 MG/ML VIAL IM SCH ×4 (02:49→21:22)
[2019-12-15] MEDS: VENLAFAXINE XR 75 MG CAP PO SCH (09:46)
[2019-12-15] MEDS: HALOPERIDOL LACTATE 5 MG/1 ML INJ IM PRN ×2 (09:46→21:22)
[2019-12-15] MEDS: risperiDONE 1 MG TAB PO SCH ×2 (09:46→21:23)
--- NOTE | 2019-12-15 10:11 | Progress Note ---
Subjective Date of service: 12/15/19 Principal diagnosis: Dementia, Catatonic Schizophrenia Subjective Comment: SUBJECTIVE Patient reviewed this morning. Per Nursing report: Improvement noted in condition. When asked how was her day, "It is wonderful," she stated in soft, slow tone with flat affect. Denies SI, HI, and pain. No acute distress observed and none reported. Attempted to see patient this morning but she declined to be interviewed. She laid on bed with covered herself with a blanket. Reason for continuing admission: Patient is not compliant with medications. REVIEW OF SYSTEMS ROS cannot be reliably obtained from the patient due to her confusion MENTAL STATUS EXAMINATION SLIME - Psychiatric problem (1) Schizophrenia, Catatonic Current Visit: Yes Status: Acute Qualifiers: Schizophrenia type: unspecified Qualified Code(s): F20.9 - Schizophrenia, unspecified (2) Dementia with behavioral disturbance Current Visit: Yes Status: Acute Treatment Plan Patient will be admitted for inpatient psychiatric evaluation, medication adjustment and close monitoring The patient's behavior, mood, sleep and appetite will be closely monitored. Patient will be enrolled in individual and group therapeutic sessions and encouraged to attend. Patient will be provided with a safe and structured environment. Patient's physical health needs will be addressed by the Hospitalist. Hospitalist Consulted Labs including CBC, CMP, Lipid profile and Hemoglobin A1C ordered Social Assessment will be completed and the Utilization Management Manager will work with patient and family to ensure a suitable and safe disposition Medication adjustment will be made as clinically indicated Medication adjustment made today: None ELOS 7 days. Legal Status: Involuntary Assessment and Plan - Patient Problems (1) Schizophrenia Current Visit: Yes Status: Acute Qualifiers: Schizophrenia type: unspecified Qualified Code(s): F20.9 - Schizophrenia, unspecified (2) Dementia with behavioral disturbance Current Visit: Yes Status: Acute Medications and Allergies Allergies Allergy/AdvReac Type Severity Reaction Status Date / Time No Known Allergies Allergy Verified 12/02/19 18:17 Home Medications Medication Instructions Recorded Confirmed Last Taken Type Melatonin [Melatonin 5MG TAB] 5 mg PO QHS 12/03/19 12/03/19 Unknown History Mirtazapine [Remeron 15mg TAB] 15 mg PO QHS 12/03/19 12/03/19 Unknown History Venlafaxine Xr [Effexor Xr] 75 mg PO QDAY 12/03/19 12/03/19 Unknown History risperiDONE [RisperDAL] 2 mg PO QHS 12/03/19 12/03/19 Unknown History Paliperidone Palmitate(Nf) [Invega 234 mg IM ONCE #1 ml 12/06/19 Unknown Rx Sustenna(Nf)] Active Meds: Active Medications Atorvastatin Calcium (Lipitor) 20 mg PO QHS [facility] Last Admin: 12/14/19 21:29 Dose: Not Given Documented by: Haloperidol Decanoate (Haldol Decanoate) 50 mg IM Q2W [facility] Haloperidol Lactate (Haldol) 5 mg IM Q6H PRN PRN Reason: Agitation Last Admin: 12/15/19 09:46 Dose: 5 mg Documented by: Lorazepam (Ativan) 2 mg IM Q6H PRN PRN Reason: Agitation Last Admin: 12/03/19 04:28 Dose: 2 mg Documented by: Lorazepam (Ativan) 1 mg IM Q6H [facility] Last Admin: 12/15/19 09:46 Dose: 1 mg Documented by: Melatonin (Melatonin) 5 mg PO QHS [facility] Last Admin: 12/14/19 21:29 Dose: Not Given Documented by: Mirtazapine (Remeron) 15 mg PO QHS [facility] Last Admin: 12/14/19 21:29 Dose: Not Given Documented by: Risperidone (Risperdal) 2 mg PO BID [facility] Last Admin: 12/15/19 09:46 Dose: Not Given Documented by: Trazodone HCl (Desyrel) 50 mg PO QHS PRN PRN Reason: Insomnia Venlafaxine HCl (Effexor Xr) 75 mg PO QDAY [facility] Last Admin: 12/15/19 09:46 Dose: Not Given Documented by: Results - Results Labs/Vitals: Laboratory Last Values WBC 24.7 K/mm3 (4.5-11.0) H 12/13/19 07:15 RBC 3.90 M/mm3 (3.65-5.03) 12/13/19 07:15 Hgb 11.9 gm/dl (10.1-14.3) 12/13/19 07:15 Hct 37.0 % (30.3-42.9) 12/13/19 07:15 MCV 95 fl (79-97) 12/13/19 07:15 MCH 31 pg (28-32) 12/13/19 07:15 MCHC 32 % (30-34) 12/13/19 07:15 RDW 15.9 % (13.2-15.2) H 12/13/19 07:15 Plt Count 132 K/mm3 (140-440) L 12/13/19 07:15 Lymph % (Auto) Inspector Finishing 12/07/19 11:10 Lymph # Inspector Finishing 12/07/19 11:10 Add Manual Diff Complete 12/07/19 11:10 Total Counted 200 12/07/19 11:10 Seg Neutrophils % Inspector Finishing 12/07/19 11:10 Seg Neuts % (Manual) 23.5 % (40.0-70.0) L 12/07/19 11:10 Band Neutrophils % 0 % 12/07/19 11:10 Lymphocytes % (Manual) 71.0 % (13.4-35.0) H 12/07/19 11:10 Reactive Lymphs % (Man) 0 % 12/07/19 11:10 Monocytes % (Manual) 5.5 % (0.0-7.3) 12/07/19 11:10 Eosinophils % (Manual) 0 % (0.0-4.3) 12/07/19 11:10 Basophils % (Manual) 0 % (0.0-1.8) 12/07/19 11:10 Metamyelocytes % 0 % 12/07/19 11:10 Myelocytes % 0 % 12/07/19 11:10 Promyelocytes % 0 % 12/07/19 11:10 Blast Cells % 0 % 12/07/19 11:10 Nucleated RBC % Not Reportable 12/07/19 11:10 Seg Neutrophils # Man 6.7 K/mm3 (1.8-7.7) 12/07/19 11:10 Band Neutrophils # 0.0 K/mm3 12/07/19 11:10 Lymphocytes # (Manual) 20.4 K/mm3 (1.2-5.4) H 12/07/19 11:10 Abs React Lymphs (Man) 0.0 K/mm3 12/07/19 11:10 Monocytes # (Manual) 1.6 K/mm3 (0.0-0.8) H 12/07/19 11:10 Eosinophils # (Manual) 0.0 K/mm3 (0.0-0.4) 12/07/19 11:10 Basophils # (Manual) 0.0 K/mm3 (0.0-0.1) 12/07/19 11:10 Metamyelocytes # 0.0 K/mm3 12/07/19 11:10 Myelocytes # 0.0 K/mm3 12/07/19 11:10 Promyelocytes # 0.0 K/mm3 12/07/19 11:10 Blast Cells # 0.0 K/mm3 12/07/19 11:10 WBC Morphology Not Reportable 12/07/19 11:10 Hypersegmented Neuts Not Reportable 12/07/19 11:10 Hyposegmented Neuts Not Reportable 12/07/19 11:10 Hypogranular Neuts Not Reportable 12/07/19 11:10 Smudge Cells Not Reportable 12/07/19 11:10 Toxic Granulation Not Reportable 12/07/19 11:10 Toxic Vacuolation Not Reportable 12/07/19 11:10 Dohle Bodies Not Reportable 12/07/19 11:10 Pelger-Huet Anomaly Not Reportable 12/07/19 11:10 Libia Rods Not Reportable 12/07/19 11:10 Platelet Estimate Consistent w auto 12/07/19 11:10 Clumped Platelets Not Reportable 12/07/19 11:10 Plt Clumps, EDTA Not Reportable 12/07/19 11:10 Large Platelets Not Reportable 12/07/19 11:10 Giant Platelets Not Reportable 12/07/19 11:10 Platelet Satelliting Not Reportable 12/07/19 11:10 Plt Morphology Comment Not Reportable 12/07/19 11:10 RBC Morphology Normal 12/07/19 11:10 Dimorphic RBCs Not Reportable 12/07/19 11:10 Polychromasia Not Reportable 12/07/19 11:10 Hypochromasia Not Reportable 12/07/19 11:10 Poikilocytosis Not Reportable 12/07/19 11:10 Anisocytosis Not Reportable 12/07/19 11:10 Microcytosis Not Reportable 12/07/19 11:10 Macrocytosis Not Reportable 12/07/19 11:10 Spherocytes Not Reportable 12/07/19 11:10 Pappenheimer Bodies Not Reportable 12/07/19 11:10 Sickle Cells Not Reportable 12/07/19 11:10 Target Cells Not Reportable 12/07/19 11:10 Tear Drop Cells Not Reportable 12/07/19 11:10 Ovalocytes Not Reportable 12/07/19 11:10 Helmet Cells Not Reportable 12/07/19 11:10 [place] Bodies Not Reportable 12/07/19 11:10 [place] Rings Not Reportable 12/07/19 11:10 [place] Cells Not Reportable 12/07/19 11:10 Bite Cells Not Reportable 12/07/19 11:10 Crenated Cell Not Reportable 12/07/19 11:10 Elliptocytes Not Reportable 12/07/19 11:10 Acanthocytes (Spur) Not Reportable 12/07/19 11:10 Rouleaux Not Reportable 12/07/19 11:10 Hemoglobin C Crystals Not Reportable 12/07/19 11:10 Schistocytes Not Reportable 12/07/19 11:10 Malaria parasites Not Reportable 12/07/19 11:10 Daniel Bodies Not Reportable 12/07/19 11:10 Hem Pathologist Commnt No 12/07/19 11:10 Sodium 142 mmol/L (137-145) 12/03/19 09:16 Potassium 4.4 mmol/L (3.6-5.0) 12/03/19 09:16 Chloride 105.5 mmol/L (98-107) 12/03/19 09:16 Carbon Dioxide 22 mmol/L (22-30) 12/03/19 09:16 Anion Gap 19 mmol/L 12/03/19 09:16 BUN 18 mg/dL (7-17) H 12/03/19 09:16 Creatinine 0.9 mg/dL (0.7-1.2) 12/03/19 09:16 Estimated GFR > 60 ml/min 12/03/19 09:16 BUN/Creatinine Ratio 20 % 12/03/19 09:16 Glucose 118 mg/dL (65-100) H 12/03/19 09:16 POC Glucose 92 (70-105) 12/13/19 19:44 Hemoglobin A1c 4.7 % (4-6) 12/03/19 09:16 Calcium 9.5 mg/dL (8.4-10.2) 12/03/19 09:16 Total Bilirubin 0.30 mg/dL (0.1-1.2) 12/03/19 09:16 AST 18 units/L (5-40) 12/03/19 09:16 ALT 15 units/L (7-56) 12/03/19 09:16 Alkaline Phosphatase 69 units/L (35-129) 12/03/19 09:16 Total Protein 6.8 g/dL (6.3-8.2) 12/03/19 09:16 Albumin 4.1 g/dL (3.9-5) 12/03/19 09:16 Albumin/Globulin Ratio 1.5 % 12/03/19 09:16 Triglycerides 70 mg/dL (2-149) 12/03/19 09:16 Cholesterol 234 mg/dL (50-199) H 12/03/19 09:16 LDL Cholesterol Direct 181 mg/dL (50-130) H 12/03/19 09:16 HDL Cholesterol 57 mg/dL (40-59) 12/03/19 09:16 Cholesterol/HDL Ratio 4.10 % 12/03/19 09:16 TSH 1.430 mlU/mL (0.270-4.200) 12/13/19 07:15 Free T4 0.88 ng/dL (0.76-1.46) 12/13/19 07:15 Last Vital Signs Temp 97.5 F L 12/15/19 07:13 Pulse 92 H 12/15/19 07:13 Resp 18 12/15/19 07:13 BP 142/87 12/15/19 07:13 Pulse Ox 98 12/15/19 07:13
[2019-12-15] MEDS ORDERED: HALOPERIDOL DECANOATE 100 MG/1 ML INJ IM SCH (11:00)
[2019-12-15] MEDS: MELATONIN 5 MG TAB PO SCH (21:23)
[2019-12-15] MEDS: MIRTAZAPINE 15 MG TAB PO SCH (21:23)
[2019-12-16] MEDS: LORazepam 2 MG/ML VIAL IM SCH ×4 (03:01→21:18)
--- NOTE | 2019-12-16 09:39 | Progress Note ---
Subjective Date of service: 12/16/19 Principal diagnosis: Dementia, Catatonic Schizophrenia Subjective Comment: SUBJECTIVE Patient reviewed this morning. Per Nursing report: Improvement noted in condition. When asked how was her day, "It is wonderful," she stated in soft, low tone with flat affect. Denies SI, HI, and pain. No acute distress observed and none reported. Attempted to see patient this morning but she declined to be interviewed. She laid on bed with covered herself with a blanket. Reason for continuing admission: Patient is not compliant with medications. REVIEW OF SYSTEMS ROS cannot be reliably obtained from the patient due to her confusion MENTAL STATUS EXAMINATION SLIME - Psychiatric problem (1) Schizophrenia, Catatonic Current Visit: Yes Status: Acute Qualifiers: Schizophrenia type: unspecified Qualified Code(s): F20.9 - Schizophrenia, unspecified (2) Dementia with behavioral disturbance Current Visit: Yes Status: Acute Treatment Plan Patient will be admitted for inpatient psychiatric evaluation, medication adjustment and close monitoring The patient's behavior, mood, sleep and appetite will be closely monitored. Patient will be enrolled in individual and group therapeutic sessions and encouraged to attend. Patient will be provided with a safe and structured environment. Patient's physical health needs will be addressed by the Hospitalist. Hospitalist Consulted Labs including CBC, CMP, Lipid profile and Hemoglobin A1C ordered Social Assessment will be completed and the Marble Installer Supervisor will work with patient and family to ensure a suitable and safe disposition Medication adjustment will be made as clinically indicated Most recent medication adjustment: Haldol decanoate 50mg im first dose given 12/15/19 ELOS 3 days. Legal Status: Involuntary Assessment and Plan - Patient Problems (1) Schizophrenia Current Visit: Yes Status: Acute Qualifiers: Schizophrenia type: unspecified Qualified Code(s): F20.9 - Schizophrenia, unspecified (2) Dementia with behavioral disturbance Current Visit: Yes Status: Acute Medications and Allergies Allergies Allergy/AdvReac Type Severity Reaction Status Date / Time No Known Allergies Allergy Verified 12/02/19 18:17 Home Medications Medication Instructions Recorded Confirmed Last Taken Type Melatonin [Melatonin 5MG TAB] 5 mg PO QHS 12/03/19 12/03/19 Unknown History Mirtazapine [Remeron 15mg TAB] 15 mg PO QHS 12/03/19 12/03/19 Unknown History Venlafaxine Xr [Effexor Xr] 75 mg PO QDAY 12/03/19 12/03/19 Unknown History risperiDONE [RisperDAL] 2 mg PO QHS 12/03/19 12/03/19 Unknown History Paliperidone Palmitate(Nf) [Invega 234 mg IM ONCE #1 ml 12/06/19 Unknown Rx Sustenna(Nf)] Active Meds: Active Medications Atorvastatin Calcium (Lipitor) 20 mg PO QHS [facility] Last Admin: 12/15/19 21:23 Dose: Not Given Documented by: Haloperidol Decanoate (Haldol Decanoate) 50 mg IM Q2W [facility] Last Admin: 12/15/19 11:50 Dose: 50 mg Documented by: Haloperidol Lactate (Haldol) 5 mg IM Q6H PRN PRN Reason: Agitation Last Admin: 12/15/19 21:22 Dose: 5 mg Documented by: Lorazepam (Ativan) 2 mg IM Q6H PRN PRN Reason: Agitation Last Admin: 12/03/19 04:28 Dose: 2 mg Documented by: Lorazepam (Ativan) 1 mg IM Q6H [facility] Last Admin: 12/16/19 03:01 Dose: 1 mg Documented by: Melatonin (Melatonin) 5 mg PO QHS [facility] Last Admin: 12/15/19 21:23 Dose: Not Given Documented by: Mirtazapine (Remeron) 15 mg PO QHS [facility] Last Admin: 12/15/19 21:23 Dose: Not Given Documented by: Risperidone (Risperdal) 2 mg PO BID [facility] Last Admin: 12/15/19 21:23 Dose: Not Given Documented by: Trazodone HCl (Desyrel) 50 mg PO QHS PRN PRN Reason: Insomnia Venlafaxine HCl (Effexor Xr) 75 mg PO QDAY [facility] Last Admin: 12/15/19 09:46 Dose: Not Given Documented by: Results - Results Labs/Vitals: Laboratory Last Values WBC 24.7 K/mm3 (4.5-11.0) H 12/13/19 07:15 RBC 3.90 M/mm3 (3.65-5.03) 12/13/19 07:15 Hgb 11.9 gm/dl (10.1-14.3) 12/13/19 07:15 Hct 37.0 % (30.3-42.9) 12/13/19 07:15 MCV 95 fl (79-97) 12/13/19 07:15 MCH 31 pg (28-32) 12/13/19 07:15 MCHC 32 % (30-34) 12/13/19 07:15 RDW 15.9 % (13.2-15.2) H 12/13/19 07:15 Plt Count 132 K/mm3 (140-440) L 12/13/19 07:15 Lymph % (Auto) Tank Setter Helper 12/07/19 11:10 Lymph # Tank Setter Helper 12/07/19 11:10 Add Manual Diff Complete 12/07/19 11:10 Total Counted 200 12/07/19 11:10 Seg Neutrophils % Tank Setter Helper 12/07/19 11:10 Seg Neuts % (Manual) 23.5 % (40.0-70.0) L 12/07/19 11:10 Band Neutrophils % 0 % 12/07/19 11:10 Lymphocytes % (Manual) 71.0 % (13.4-35.0) H 12/07/19 11:10 Reactive Lymphs % (Man) 0 % 12/07/19 11:10 Monocytes % (Manual) 5.5 % (0.0-7.3) 12/07/19 11:10 Eosinophils % (Manual) 0 % (0.0-4.3) 12/07/19 11:10 Basophils % (Manual) 0 % (0.0-1.8) 12/07/19 11:10 Metamyelocytes % 0 % 12/07/19 11:10 Myelocytes % 0 % 12/07/19 11:10 Promyelocytes % 0 % 12/07/19 11:10 Blast Cells % 0 % 12/07/19 11:10 Nucleated RBC % Not Reportable 12/07/19 11:10 Seg Neutrophils # Man 6.7 K/mm3 (1.8-7.7) 12/07/19 11:10 Band Neutrophils # 0.0 K/mm3 12/07/19 11:10 Lymphocytes # (Manual) 20.4 K/mm3 (1.2-5.4) H 12/07/19 11:10 Abs React Lymphs (Man) 0.0 K/mm3 12/07/19 11:10 Monocytes # (Manual) 1.6 K/mm3 (0.0-0.8) H 12/07/19 11:10 Eosinophils # (Manual) 0.0 K/mm3 (0.0-0.4) 12/07/19 11:10 Basophils # (Manual) 0.0 K/mm3 (0.0-0.1) 12/07/19 11:10 Metamyelocytes # 0.0 K/mm3 12/07/19 11:10 Myelocytes # 0.0 K/mm3 12/07/19 11:10 Promyelocytes # 0.0 K/mm3 12/07/19 11:10 Blast Cells # 0.0 K/mm3 12/07/19 11:10 WBC Morphology Not Reportable 12/07/19 11:10 Hypersegmented Neuts Not Reportable 12/07/19 11:10 Hyposegmented Neuts Not Reportable 12/07/19 11:10 Hypogranular Neuts Not Reportable 12/07/19 11:10 Smudge Cells Not Reportable 12/07/19 11:10 Toxic Granulation Not Reportable 12/07/19 11:10 Toxic Vacuolation Not Reportable 12/07/19 11:10 Dohle Bodies Not Reportable 12/07/19 11:10 Pelger-Huet Anomaly Not Reportable 12/07/19 11:10 Libia Rods Not Reportable 12/07/19 11:10 Platelet Estimate Consistent w auto 12/07/19 11:10 Clumped Platelets Not Reportable 12/07/19 11:10 Plt Clumps, EDTA Not Reportable 12/07/19 11:10 Large Platelets Not Reportable 12/07/19 11:10 Giant Platelets Not Reportable 12/07/19 11:10 Platelet Satelliting Not Reportable 12/07/19 11:10 Plt Morphology Comment Not Reportable 12/07/19 11:10 RBC Morphology Normal 12/07/19 11:10 Dimorphic RBCs Not Reportable 12/07/19 11:10 Polychromasia Not Reportable 12/07/19 11:10 Hypochromasia Not Reportable 12/07/19 11:10 Poikilocytosis Not Reportable 12/07/19 11:10 Anisocytosis Not Reportable 12/07/19 11:10 Microcytosis Not Reportable 12/07/19 11:10 Macrocytosis Not Reportable 12/07/19 11:10 Spherocytes Not Reportable 12/07/19 11:10 Pappenheimer Bodies Not Reportable 12/07/19 11:10 Sickle Cells Not Reportable 12/07/19 11:10 Target Cells Not Reportable 12/07/19 11:10 Tear Drop Cells Not Reportable 12/07/19 11:10 Ovalocytes Not Reportable 12/07/19 11:10 Helmet Cells Not Reportable 12/07/19 11:10 Claire-[place] Bodies Not Reportable 12/07/19 11:10 [place] Rings Not Reportable 12/07/19 11:10 Kayla Cells Not Reportable 12/07/19 11:10 Bite Cells Not Reportable 12/07/19 11:10 Crenated Cell Not Reportable 12/07/19 11:10 Elliptocytes Not Reportable 12/07/19 11:10 Acanthocytes (Spur) Not Reportable 12/07/19 11:10 Rouleaux Not Reportable 12/07/19 11:10 Hemoglobin C Crystals Not Reportable 12/07/19 11:10 Schistocytes Not Reportable 12/07/19 11:10 Malaria parasites Not Reportable 12/07/19 11:10 Daniel Bodies Not Reportable 12/07/19 11:10 Hem Pathologist Commnt No 12/07/19 11:10 Sodium 142 mmol/L (137-145) 12/03/19 09:16 Potassium 4.4 mmol/L (3.6-5.0) 12/03/19 09:16 Chloride 105.5 mmol/L (98-107) 12/03/19 09:16 Carbon Dioxide 22 mmol/L (22-30) 12/03/19 09:16 Anion Gap 19 mmol/L 12/03/19 09:16 BUN 18 mg/dL (7-17) H 12/03/19 09:16 Creatinine 0.9 mg/dL (0.7-1.2) 12/03/19 09:16 Estimated GFR > 60 ml/min 12/03/19 09:16 BUN/Creatinine Ratio 20 % 12/03/19 09:16 Glucose 118 mg/dL (65-100) H 12/03/19 09:16 POC Glucose 92 (70-105) 12/13/19 19:44 Hemoglobin A1c 4.7 % (4-6) 12/03/19 09:16 Calcium 9.5 mg/dL (8.4-10.2) 12/03/19 09:16 Total Bilirubin 0.30 mg/dL (0.1-1.2) 12/03/19 09:16 AST 18 units/L (5-40) 12/03/19 09:16 ALT 15 units/L (7-56) 12/03/19 09:16 Alkaline Phosphatase 69 units/L (35-129) 12/03/19 09:16 Total Protein 6.8 g/dL (6.3-8.2) 12/03/19 09:16 Albumin 4.1 g/dL (3.9-5) 12/03/19 09:16 Albumin/Globulin Ratio 1.5 % 12/03/19 09:16 Triglycerides 70 mg/dL (2-149) 12/03/19 09:16 Cholesterol 234 mg/dL (50-199) H 12/03/19 09:16 LDL Cholesterol Direct 181 mg/dL (50-130) H 12/03/19 09:16 HDL Cholesterol 57 mg/dL (40-59) 12/03/19 09:16 Cholesterol/HDL Ratio 4.10 % 12/03/19 09:16 TSH 1.430 mlU/mL (0.270-4.200) 12/13/19 07:15 Free T4 0.88 ng/dL (0.76-1.46) 12/13/19 07:15 Last Vital Signs Temp 98.0 F 12/15/19 22:00 Pulse 91 H 12/15/19 22:00 Resp 16 12/15/19 22:00 BP 146/98 12/15/19 22:00 Pulse Ox 99 12/15/19 22:00
[2019-12-16] MEDS: HALOPERIDOL LACTATE 5 MG/1 ML INJ IM PRN ×2 (10:09→22:27)
[2019-12-16] MEDS: VENLAFAXINE XR 75 MG CAP PO SCH (10:10)
[2019-12-16] MEDS: risperiDONE 1 MG TAB PO SCH ×2 (10:10→22:26)
[2019-12-16] MEDS: MELATONIN 5 MG TAB PO SCH (22:25)
[2019-12-16] MEDS: MIRTAZAPINE 15 MG TAB PO SCH (22:25)
[2019-12-17] MEDS: LORazepam 2 MG/ML VIAL IM SCH ×4 (03:37→21:38)
[2019-12-17] MEDS: risperiDONE 1 MG TAB PO SCH ×2 (11:35→21:38)
[2019-12-17] MEDS: VENLAFAXINE XR 75 MG CAP PO SCH (11:35)
[2019-12-17] MEDS: HALOPERIDOL LACTATE 5 MG/1 ML INJ IM PRN ×2 (11:38→21:38)
--- NOTE | 2019-12-17 14:58 | Progress Note ---
Subjective Date of service: 12/17/19 Principal diagnosis: Dementia, Catatonic Schizophrenia Subjective Comment: SUBJECTIVE Patient reviewed this morning. Per Nursing report: Improvement noted in condition. When asked how was her day, "It is wonderful," she stated in soft, low tone with flat affect. Denies SI, HI, and pain. No acute distress observed and none reported. Attempted to see patient this morning but she declined to be interviewed. She laid on bed with covered herself with a blanket. Reason for continuing admission: Patient is not compliant with medications. REVIEW OF SYSTEMS ROS cannot be reliably obtained from the patient due to her confusion MENTAL STATUS EXAMINATION SLIME - Psychiatric problem (1) Schizophrenia, Catatonic Current Visit: Yes Status: Acute Qualifiers: Schizophrenia type: unspecified Qualified Code(s): F20.9 - Schizophrenia, unspecified (2) Dementia with behavioral disturbance Current Visit: Yes Status: Acute Treatment Plan Patient will be admitted for inpatient psychiatric evaluation, medication adjustment and close monitoring The patient's behavior, mood, sleep and appetite will be closely monitored. Patient will be enrolled in individual and group therapeutic sessions and encouraged to attend. Patient will be provided with a safe and structured environment. Patient's physical health needs will be addressed by the Hospitalist. Hospitalist Consulted Labs including CBC, CMP, Lipid profile and Hemoglobin A1C ordered Social Assessment will be completed and the Filter Bed Placer will work with patient and family to ensure a suitable and safe disposition Medication adjustment will be made as clinically indicated Most recent medication adjustment: Haldol decanoate 50mg im first dose given 12/15/19 ELOS 3 days. Legal Status: Involuntary Assessment and Plan - Patient Problems (1) Schizophrenia Current Visit: Yes Status: Acute Qualifiers: Schizophrenia type: unspecified Qualified Code(s): F20.9 - Schizophrenia, unspecified (2) Dementia with behavioral disturbance Current Visit: Yes Status: Acute Medications and Allergies Allergies Allergy/AdvReac Type Severity Reaction Status Date / Time No Known Allergies Allergy Verified 12/02/19 18:17 Home Medications Medication Instructions Recorded Confirmed Last Taken Type Melatonin [Melatonin 5MG TAB] 5 mg PO QHS 12/03/19 12/03/19 Unknown History Mirtazapine [Remeron 15mg TAB] 15 mg PO QHS 12/03/19 12/03/19 Unknown History Venlafaxine Xr [Effexor Xr] 75 mg PO QDAY 12/03/19 12/03/19 Unknown History risperiDONE [RisperDAL] 2 mg PO QHS 12/03/19 12/03/19 Unknown History Paliperidone Palmitate(Nf) [Invega 234 mg IM ONCE #1 ml 12/06/19 Unknown Rx Sustenna(Nf)] Active Meds: Active Medications Atorvastatin Calcium (Lipitor) 20 mg PO QHS [facility] Last Admin: 12/16/19 22:25 Dose: Not Given Documented by: Haloperidol Decanoate (Haldol Decanoate) 50 mg IM Q2W [facility] Last Admin: 12/15/19 11:50 Dose: 50 mg Documented by: Haloperidol Lactate (Haldol) 5 mg IM Q6H PRN PRN Reason: Agitation Last Admin: 12/17/19 11:38 Dose: 5 mg Documented by: Lorazepam (Ativan) 2 mg IM Q6H PRN PRN Reason: Agitation Last Admin: 12/03/19 04:28 Dose: 2 mg Documented by: Lorazepam (Ativan) 1 mg IM Q6H [facility] Last Admin: 12/17/19 09:35 Dose: 1 mg Documented by: Melatonin (Melatonin) 5 mg PO QHS [facility] Last Admin: 12/16/19 22:25 Dose: Not Given Documented by: Mirtazapine (Remeron) 15 mg PO QHS [facility] Last Admin: 12/16/19 22:25 Dose: Not Given Documented by: Risperidone (Risperdal) 2 mg PO BID [facility] Last Admin: 12/17/19 11:35 Dose: Not Given Documented by: Trazodone HCl (Desyrel) 50 mg PO QHS PRN PRN Reason: Insomnia Venlafaxine HCl (Effexor Xr) 75 mg PO QDAY [facility] Last Admin: 12/17/19 11:35 Dose: Not Given Documented by: Results - Results Labs/Vitals: Laboratory Last Values WBC 24.7 K/mm3 (4.5-11.0) H 12/13/19 07:15 RBC 3.90 M/mm3 (3.65-5.03) 12/13/19 07:15 Hgb 11.9 gm/dl (10.1-14.3) 12/13/19 07:15 Hct 37.0 % (30.3-42.9) 12/13/19 07:15 MCV 95 fl (79-97) 12/13/19 07:15 MCH 31 pg (28-32) 12/13/19 07:15 MCHC 32 % (30-34) 12/13/19 07:15 RDW 15.9 % (13.2-15.2) H 12/13/19 07:15 Plt Count 132 K/mm3 (140-440) L 12/13/19 07:15 Lymph % (Auto) Eap Counselor 12/07/19 11:10 Lymph # Eap Counselor 12/07/19 11:10 Add Manual Diff Complete 12/07/19 11:10 Total Counted 200 12/07/19 11:10 Seg Neutrophils % Eap Counselor 12/07/19 11:10 Seg Neuts % (Manual) 23.5 % (40.0-70.0) L 12/07/19 11:10 Band Neutrophils % 0 % 12/07/19 11:10 Lymphocytes % (Manual) 71.0 % (13.4-35.0) H 12/07/19 11:10 Reactive Lymphs % (Man) 0 % 12/07/19 11:10 Monocytes % (Manual) 5.5 % (0.0-7.3) 12/07/19 11:10 Eosinophils % (Manual) 0 % (0.0-4.3) 12/07/19 11:10 Basophils % (Manual) 0 % (0.0-1.8) 12/07/19 11:10 Metamyelocytes % 0 % 12/07/19 11:10 Myelocytes % 0 % 12/07/19 11:10 Promyelocytes % 0 % 12/07/19 11:10 Blast Cells % 0 % 12/07/19 11:10 Nucleated RBC % Not Reportable 12/07/19 11:10 Seg Neutrophils # Man 6.7 K/mm3 (1.8-7.7) 12/07/19 11:10 Band Neutrophils # 0.0 K/mm3 12/07/19 11:10 Lymphocytes # (Manual) 20.4 K/mm3 (1.2-5.4) H 12/07/19 11:10 Abs React Lymphs (Man) 0.0 K/mm3 12/07/19 11:10 Monocytes # (Manual) 1.6 K/mm3 (0.0-0.8) H 12/07/19 11:10 Eosinophils # (Manual) 0.0 K/mm3 (0.0-0.4) 12/07/19 11:10 Basophils # (Manual) 0.0 K/mm3 (0.0-0.1) 12/07/19 11:10 Metamyelocytes # 0.0 K/mm3 12/07/19 11:10 Myelocytes # 0.0 K/mm3 12/07/19 11:10 Promyelocytes # 0.0 K/mm3 12/07/19 11:10 Blast Cells # 0.0 K/mm3 12/07/19 11:10 WBC Morphology Not Reportable 12/07/19 11:10 Hypersegmented Neuts Not Reportable 12/07/19 11:10 Hyposegmented Neuts Not Reportable 12/07/19 11:10 Hypogranular Neuts Not Reportable 12/07/19 11:10 Smudge Cells Not Reportable 12/07/19 11:10 Toxic Granulation Not Reportable 12/07/19 11:10 Toxic Vacuolation Not Reportable 12/07/19 11:10 Dohle Bodies Not Reportable 12/07/19 11:10 Pelger-Huet Anomaly Not Reportable 12/07/19 11:10 Libia Rods Not Reportable 12/07/19 11:10 Platelet Estimate Consistent w auto 12/07/19 11:10 Clumped Platelets Not Reportable 12/07/19 11:10 Plt Clumps, EDTA Not Reportable 12/07/19 11:10 Large Platelets Not Reportable 12/07/19 11:10 Giant Platelets Not Reportable 12/07/19 11:10 Platelet Satelliting Not Reportable 12/07/19 11:10 Plt Morphology Comment Not Reportable 12/07/19 11:10 RBC Morphology Normal 12/07/19 11:10 Dimorphic RBCs Not Reportable 12/07/19 11:10 Polychromasia Not Reportable 12/07/19 11:10 Hypochromasia Not Reportable 12/07/19 11:10 Poikilocytosis Not Reportable 12/07/19 11:10 Anisocytosis Not Reportable 12/07/19 11:10 Microcytosis Not Reportable 12/07/19 11:10 Macrocytosis Not Reportable 12/07/19 11:10 Spherocytes Not Reportable 12/07/19 11:10 Pappenheimer Bodies Not Reportable 12/07/19 11:10 Sickle Cells Not Reportable 12/07/19 11:10 Target Cells Not Reportable 12/07/19 11:10 Tear Drop Cells Not Reportable 12/07/19 11:10 Ovalocytes Not Reportable 12/07/19 11:10 Helmet Cells Not Reportable 12/07/19 11:10 Claire-[place] Bodies Not Reportable 12/07/19 11:10 [place] Rings Not Reportable 12/07/19 11:10 Kayla Cells Not Reportable 12/07/19 11:10 Bite Cells Not Reportable 12/07/19 11:10 Crenated Cell Not Reportable 12/07/19 11:10 Elliptocytes Not Reportable 12/07/19 11:10 Acanthocytes (Spur) Not Reportable 12/07/19 11:10 Rouleaux Not Reportable 12/07/19 11:10 Hemoglobin C Crystals Not Reportable 12/07/19 11:10 Schistocytes Not Reportable 12/07/19 11:10 Malaria parasites Not Reportable 12/07/19 11:10 Daniel Bodies Not Reportable 12/07/19 11:10 Hem Pathologist Commnt No 12/07/19 11:10 Sodium 142 mmol/L (137-145) 12/03/19 09:16 Potassium 4.4 mmol/L (3.6-5.0) 12/03/19 09:16 Chloride 105.5 mmol/L (98-107) 12/03/19 09:16 Carbon Dioxide 22 mmol/L (22-30) 12/03/19 09:16 Anion Gap 19 mmol/L 12/03/19 09:16 BUN 18 mg/dL (7-17) H 12/03/19 09:16 Creatinine 0.9 mg/dL (0.7-1.2) 12/03/19 09:16 Estimated GFR > 60 ml/min 12/03/19 09:16 BUN/Creatinine Ratio 20 % 12/03/19 09:16 Glucose 118 mg/dL (65-100) H 12/03/19 09:16 POC Glucose 92 (70-105) 12/13/19 19:44 Hemoglobin A1c 4.7 % (4-6) 12/03/19 09:16 Calcium 9.5 mg/dL (8.4-10.2) 12/03/19 09:16 Total Bilirubin 0.30 mg/dL (0.1-1.2) 12/03/19 09:16 AST 18 units/L (5-40) 12/03/19 09:16 ALT 15 units/L (7-56) 12/03/19 09:16 Alkaline Phosphatase 69 units/L (35-129) 12/03/19 09:16 Total Protein 6.8 g/dL (6.3-8.2) 12/03/19 09:16 Albumin 4.1 g/dL (3.9-5) 12/03/19 09:16 Albumin/Globulin Ratio 1.5 % 12/03/19 09:16 Triglycerides 70 mg/dL (2-149) 12/03/19 09:16 Cholesterol 234 mg/dL (50-199) H 12/03/19 09:16 LDL Cholesterol Direct 181 mg/dL (50-130) H 12/03/19 09:16 HDL Cholesterol 57 mg/dL (40-59) 12/03/19 09:16 Cholesterol/HDL Ratio 4.10 % 12/03/19 09:16 TSH 1.430 mlU/mL (0.270-4.200) 12/13/19 07:15 Free T4 0.88 ng/dL (0.76-1.46) 12/13/19 07:15 Last Vital Signs Temp 98.0 F 12/15/19 22:00 Pulse 91 H 12/15/19 22:00 Resp 16 12/15/19 22:00 BP 146/98 12/15/19 22:00 Pulse Ox 99 12/15/19 22:00
[2019-12-17] MEDS: MELATONIN 5 MG TAB PO SCH (21:39)
[2019-12-17] MEDS: MIRTAZAPINE 15 MG TAB PO SCH (21:39)
[2019-12-18] MEDS: LORazepam 2 MG/ML VIAL IM SCH ×4 (03:31→22:41)
--- NOTE | 2019-12-18 09:59 | Progress Note ---
Subjective Date of service: 12/18/19 Principal diagnosis: Dementia, Catatonic Schizophrenia Subjective Comment: Per Nursing note: Pt continue to refuse medication as schedule. Haldol 5 mg given per MD order. Will continue to monitor.Patient reviewed this morning. Per Nursing report: Improvement noted in condition. When asked how was her day, "It is wonderful," she stated in soft, low tone with flat affect. Denies SI, HI, and pain. No acute distress observed and none reported. Patient seen by me in person in the room this A.M., found awake and sited up right in bed, arms together and looking straight at wall. When asked how she was, pt replied "I'm fine and thinking", with no eye contact, when asked to describer her mood, she states "I'm mentally competent". Patient refuses to respond to any further questions, she made zero eye contact, and maintained a still gaze at the well throughout the interview. Reason for continuing admission: Patient is not compliant with medications, persistent exhibition of catatonic behavior. REVIEW OF SYSTEMS ROS cannot be reliably obtained from the patient due to her confusion MENTAL STATUS EXAMINATION SLIME - Psychiatric problem (1) Schizophrenia, Catatonic Current Visit: Yes Status: Acute Qualifiers: Schizophrenia type: unspecified Qualified Code(s): F20.9 - Schizophrenia, unspecified (2) Dementia with behavioral disturbance Current Visit: Yes Status: Acute Treatment Plan Patient will be admitted for inpatient psychiatric evaluation, medication adjustment and close monitoring The patient's behavior, mood, sleep and appetite will be closely monitored. Patient will be enrolled in individual and group therapeutic sessions and encouraged to attend. Patient will be provided with a safe and structured environment. Patient's physical health needs will be addressed by the Hospitalist. Hospitalist Consulted Labs including CBC, CMP, Lipid profile and Hemoglobin A1C ordered Social Assessment will be completed and the Aircraft Detail Draftsperson will work with patient and family to ensure a suitable and safe disposition Medication adjustment made as clinically indicated. Will give Haldol Decanoate 50 mg IM today Most recent medication adjustment: Haldol decanoate 50mg im first dose given 12/15/19 ELOS 3 days. Legal Status: Involuntary Medications and Allergies Allergies Allergy/AdvReac Type Severity Reaction Status Date / Time No Known Allergies Allergy Verified 12/02/19 18:17 Home Medications Medication Instructions Recorded Confirmed Last Taken Type Melatonin [Melatonin 5MG TAB] 5 mg PO QHS 12/03/19 12/03/19 Unknown History Mirtazapine [Remeron 15mg TAB] 15 mg PO QHS 12/03/19 12/03/19 Unknown History Venlafaxine Xr [Effexor Xr] 75 mg PO QDAY 12/03/19 12/03/19 Unknown History risperiDONE [RisperDAL] 2 mg PO QHS 12/03/19 12/03/19 Unknown History Paliperidone Palmitate(Nf) [Invega 234 mg IM ONCE #1 ml 12/06/19 Unknown Rx Sustenna(Nf)] Active Meds: Active Medications Atorvastatin Calcium (Lipitor) 20 mg PO QHS [facility] Last Admin: 12/17/19 21:39 Dose: Not Given Documented by: Haloperidol Decanoate (Haldol Decanoate) 50 mg IM Q2W [facility] Last Admin: 12/15/19 11:50 Dose: 50 mg Documented by: Haloperidol Lactate (Haldol) 5 mg IM Q6H PRN PRN Reason: Agitation Last Admin: 12/17/19 21:38 Dose: 5 mg Documented by: Lorazepam (Ativan) 2 mg IM Q6H PRN PRN Reason: Agitation Last Admin: 12/03/19 04:28 Dose: 2 mg Documented by: Lorazepam (Ativan) 1 mg IM Q6H [facility] Last Admin: 12/18/19 03:31 Dose: 1 mg Documented by: Melatonin (Melatonin) 5 mg PO QHS [facility] Last Admin: 12/17/19 21:39 Dose: Not Given Documented by: Mirtazapine (Remeron) 15 mg PO QHS [facility] Last Admin: 12/17/19 21:39 Dose: Not Given Documented by: Risperidone (Risperdal) 2 mg PO BID [facility] Last Admin: 12/17/19 21:38 Dose: Not Given Documented by: Trazodone HCl (Desyrel) 50 mg PO QHS PRN PRN Reason: Insomnia Venlafaxine HCl (Effexor Xr) 75 mg PO QDAY [facility] Last Admin: 12/17/19 11:35 Dose: Not Given Documented by: Results - Results Labs/Vitals: Laboratory Last Values WBC 24.7 K/mm3 (4.5-11.0) H 12/13/19 07:15 RBC 3.90 M/mm3 (3.65-5.03) 12/13/19 07:15 Hgb 11.9 gm/dl (10.1-14.3) 12/13/19 07:15 Hct 37.0 % (30.3-42.9) 12/13/19 07:15 MCV 95 fl (79-97) 12/13/19 07:15 MCH 31 pg (28-32) 12/13/19 07:15 MCHC 32 % (30-34) 12/13/19 07:15 RDW 15.9 % (13.2-15.2) H 12/13/19 07:15 Plt Count 132 K/mm3 (140-440) L 12/13/19 07:15 Lymph % (Auto) [facility] 12/07/19 11:10 Lymph # [facility] 12/07/19 11:10 Add Manual Diff Complete 12/07/19 11:10 Total Counted 200 12/07/19 11:10 Seg Neutrophils % [facility] 12/07/19 11:10 Seg Neuts % (Manual) 23.5 % (40.0-70.0) L 12/07/19 11:10 Band Neutrophils % 0 % 12/07/19 11:10 Lymphocytes % (Manual) 71.0 % (13.4-35.0) H 12/07/19 11:10 Reactive Lymphs % (Man) 0 % 12/07/19 11:10 Monocytes % (Manual) 5.5 % (0.0-7.3) 12/07/19 11:10 Eosinophils % (Manual) 0 % (0.0-4.3) 12/07/19 11:10 Basophils % (Manual) 0 % (0.0-1.8) 12/07/19 11:10 Metamyelocytes % 0 % 12/07/19 11:10 Myelocytes % 0 % 12/07/19 11:10 Promyelocytes % 0 % 12/07/19 11:10 Blast Cells % 0 % 12/07/19 11:10 Nucleated RBC % Not Reportable 12/07/19 11:10 Seg Neutrophils # Man 6.7 K/mm3 (1.8-7.7) 12/07/19 11:10 Band Neutrophils # 0.0 K/mm3 12/07/19 11:10 Lymphocytes # (Manual) 20.4 K/mm3 (1.2-5.4) H 12/07/19 11:10 Abs React Lymphs (Man) 0.0 K/mm3 12/07/19 11:10 Monocytes # (Manual) 1.6 K/mm3 (0.0-0.8) H 12/07/19 11:10 Eosinophils # (Manual) 0.0 K/mm3 (0.0-0.4) 12/07/19 11:10 Basophils # (Manual) 0.0 K/mm3 (0.0-0.1) 12/07/19 11:10 Metamyelocytes # 0.0 K/mm3 12/07/19 11:10 Myelocytes # 0.0 K/mm3 12/07/19 11:10 Promyelocytes # 0.0 K/mm3 12/07/19 11:10 Blast Cells # 0.0 K/mm3 12/07/19 11:10 WBC Morphology Not Reportable 12/07/19 11:10 Hypersegmented Neuts Not Reportable 12/07/19 11:10 Hyposegmented Neuts Not Reportable 12/07/19 11:10 Hypogranular Neuts Not Reportable 12/07/19 11:10 Smudge Cells Not Reportable 12/07/19 11:10 Toxic Granulation Not Reportable 12/07/19 11:10 Toxic Vacuolation Not Reportable 12/07/19 11:10 Dohle Bodies Not Reportable 12/07/19 11:10 Pelger-Huet Anomaly Not Reportable 12/07/19 11:10 Libia Rods Not Reportable 12/07/19 11:10 Platelet Estimate Consistent w auto 12/07/19 11:10 Clumped Platelets Not Reportable 12/07/19 11:10 Plt Clumps, EDTA Not Reportable 12/07/19 11:10 Large Platelets Not Reportable 12/07/19 11:10 Giant Platelets Not Reportable 12/07/19 11:10 Platelet Satelliting Not Reportable 12/07/19 11:10 Plt Morphology Comment Not Reportable 12/07/19 11:10 RBC Morphology Normal 12/07/19 11:10 Dimorphic RBCs Not Reportable 12/07/19 11:10 Polychromasia Not Reportable 12/07/19 11:10 Hypochromasia Not Reportable 12/07/19 11:10 Poikilocytosis Not Reportable 12/07/19 11:10 Anisocytosis Not Reportable 12/07/19 11:10 Microcytosis Not Reportable 12/07/19 11:10 Macrocytosis Not Reportable 12/07/19 11:10 Spherocytes Not Reportable 12/07/19 11:10 Pappenheimer Bodies Not Reportable 12/07/19 11:10 Sickle Cells Not Reportable 12/07/19 11:10 Target Cells Not Reportable 12/07/19 11:10 Tear Drop Cells Not Reportable 12/07/19 11:10 Ovalocytes Not Reportable 12/07/19 11:10 Helmet Cells Not Reportable 12/07/19 11:10 [place] Bodies Not Reportable 12/07/19 11:10 [place] Rings Not Reportable 12/07/19 11:10 [place] Cells Not Reportable 12/07/19 11:10 Bite Cells Not Reportable 12/07/19 11:10 Crenated Cell Not Reportable 12/07/19 11:10 Elliptocytes Not Reportable 12/07/19 11:10 Acanthocytes (Spur) Not Reportable 12/07/19 11:10 Rouleaux Not Reportable 12/07/19 11:10 Hemoglobin C Crystals Not Reportable 12/07/19 11:10 Schistocytes Not Reportable 12/07/19 11:10 Malaria parasites Not Reportable 12/07/19 11:10 Daniel Bodies Not Reportable 12/07/19 11:10 Hem Pathologist Commnt No 12/07/19 11:10 Sodium 142 mmol/L (137-145) 12/03/19 09:16 Potassium 4.4 mmol/L (3.6-5.0) 12/03/19 09:16 Chloride 105.5 mmol/L (98-107) 12/03/19 09:16 Carbon Dioxide 22 mmol/L (22-30) 12/03/19 09:16 Anion Gap 19 mmol/L 12/03/19 09:16 BUN 18 mg/dL (7-17) H 12/03/19 09:16 Creatinine 0.9 mg/dL (0.7-1.2) 12/03/19 09:16 Estimated GFR > 60 ml/min 12/03/19 09:16 BUN/Creatinine Ratio 20 % 12/03/19 09:16 Glucose 118 mg/dL (65-100) H 12/03/19 09:16 POC Glucose 92 (70-105) 12/13/19 19:44 Hemoglobin A1c 4.7 % (4-6) 12/03/19 09:16 Calcium 9.5 mg/dL (8.4-10.2) 12/03/19 09:16 Total Bilirubin 0.30 mg/dL (0.1-1.2) 12/03/19 09:16 AST 18 units/L (5-40) 12/03/19 09:16 ALT 15 units/L (7-56) 12/03/19 09:16 Alkaline Phosphatase 69 units/L (35-129) 12/03/19 09:16 Total Protein 6.8 g/dL (6.3-8.2) 12/03/19 09:16 Albumin 4.1 g/dL (3.9-5) 12/03/19 09:16 Albumin/Globulin Ratio 1.5 % 12/03/19 09:16 Triglycerides 70 mg/dL (2-149) 12/03/19 09:16 Cholesterol 234 mg/dL (50-199) H 12/03/19 09:16 LDL Cholesterol Direct 181 mg/dL (50-130) H 12/03/19 09:16 HDL Cholesterol 57 mg/dL (40-59) 12/03/19 09:16 Cholesterol/HDL Ratio 4.10 % 12/03/19 09:16 TSH 1.430 mlU/mL (0.270-4.200) 12/13/19 07:15 Free T4 0.88 ng/dL (0.76-1.46) 12/13/19 07:15 Last Vital Signs Temp 98 F 12/17/19 22:00 Pulse 89 12/17/19 22:00 Resp 15 12/17/19 22:00 BP 122/86 12/17/19 22:00 Pulse Ox 98 12/17/19 22:00
[2019-12-18] MEDS ORDERED: HALOPERIDOL DECANOATE 100 MG/1 ML INJ IM ONE (11:25)
[2019-12-18] MEDS: VENLAFAXINE XR 75 MG CAP PO SCH (13:13)
[2019-12-18] MEDS: risperiDONE 1 MG TAB PO SCH (13:13)
[2019-12-18] MEDS: HALOPERIDOL LACTATE 5 MG/1 ML INJ IM PRN (22:42)
[2019-12-19] MEDS: LORazepam 2 MG/ML VIAL IM SCH ×3 (08:58→21:35)
[2019-12-19] MEDS: HALOPERIDOL LACTATE 5 MG/1 ML INJ IM PRN (09:00)
[2019-12-19] MEDS: risperiDONE 1 MG TAB PO SCH (10:47)
[2019-12-19] MEDS: VENLAFAXINE XR 75 MG CAP PO SCH (10:48)
--- NOTE | 2019-12-19 12:20 | Progress Note ---
Subjective Date of service: 12/19/19 Principal diagnosis: Dementia, Catatonic Schizophrenia Subjective Comment: Per Nursing note: Staff found someone of interest to pt. and she became very happy and began to speak. She had refused her po meds earlier, even after three attempts. Haldol DEC administered IM. Patient seen by me in person in the room this morning. She is improving, more interactive, eating and sleeping well. She received Haldol D. yesterday, hence po antipsychotics not required and have been discontinued this morning. Reason for continuing admission: Weaning off Lorazepam before discharge REVIEW OF SYSTEMS Constitutional: Negative for weight loss ENT: Negative for stridor Respiratory: Negative for cough or hemoptysis All other systems reviewed and are negative MENTAL STATUS EXAMINATION General Appearance and Behavior: age appropriate, poor eye contact, cooperative with questioning and polite Cooperation: Cooperative Psychomotor Behavior: Decreased Mood: OK Affect and affective range: Congruent with stated mood Thought Process: Fluent/Logical and Goal-directed Thought Content: Within reality Speech: Paucity of speech Intellectual Functioning Average Suicidal Ideation: Denies SI Homicidal Ideation: Denies HI Impulse Control: intact Insight and Judgment: normal insight and judgment Memory: Normal Attention: Normal Orientation: alert and oriented - Psychiatric problem (1) Schizophrenia, Catatonic Current Visit: Yes Status: Acute Qualifiers: Schizophrenia type: unspecified Qualified Code(s): F20.9 - Schizophrenia, unspecified (2) Dementia with behavioral disturbance Current Visit: Yes Status: Acute Treatment Plan Patient will be admitted for inpatient psychiatric evaluation, medication adjustment and close monitoring The patient's behavior, mood, sleep and appetite will be closely monitored. Patient will be enrolled in individual and group therapeutic sessions and encouraged to attend. Patient will be provided with a safe and structured environment. Patient's physical health needs will be addressed by the Hospitalist. Hospitalist Consulted Labs including CBC, CMP, Lipid profile and Hemoglobin A1C ordered Social Assessment will be completed and the Cath Lab Radiology Technician will work with patient and family to ensure a suitable and safe disposition Medication adjustment made as clinically indicated. Most recent medication adjustment: Haldol decanoate 50mg im first dose given 12/18/19 ELOS 2 - 3 days. Legal Status: Involuntary Objective - Mental Status Mental Status: Alert Medications and Allergies Allergies Allergy/AdvReac Type Severity Reaction Status Date / Time No Known Allergies Allergy Verified 12/02/19 18:17 Home Medications Medication Instructions Recorded Confirmed Last Taken Type Melatonin [Melatonin 5MG TAB] 5 mg PO QHS 12/03/19 12/03/19 Unknown History Mirtazapine [Remeron 15mg TAB] 15 mg PO QHS 12/03/19 12/03/19 Unknown History Venlafaxine Xr [Effexor Xr] 75 mg PO QDAY 12/03/19 12/03/19 Unknown History risperiDONE [RisperDAL] 2 mg PO QHS 12/03/19 12/03/19 Unknown History Paliperidone Palmitate(Nf) [Invega 234 mg IM ONCE #1 ml 12/06/19 Unknown Rx Sustenna(Nf)] Active Meds: Active Medications Atorvastatin Calcium (Lipitor) 20 mg PO QHS [facility] Last Admin: 12/17/19 21:39 Dose: Not Given Documented by: Haloperidol Decanoate (Haldol Decanoate) 100 mg IM Q2W [facility] Lorazepam (Ativan) 1 mg IM Q6H [facility] Last Admin: 12/19/19 08:58 Dose: 1 mg Documented by: Melatonin (Melatonin) 5 mg PO QHS [facility] Last Admin: 12/17/19 21:39 Dose: Not Given Documented by: Mirtazapine (Remeron) 15 mg PO QHS [facility] Last Admin: 12/17/19 21:39 Dose: Not Given Documented by: Trazodone HCl (Desyrel) 50 mg PO QHS PRN PRN Reason: Insomnia Venlafaxine HCl (Effexor Xr) 75 mg PO QDAY [facility] Last Admin: 12/19/19 10:48 Dose: Not Given Documented by: Results - Results Labs/Vitals: Laboratory Last Values WBC 24.7 K/mm3 (4.5-11.0) H 12/13/19 07:15 RBC 3.90 M/mm3 (3.65-5.03) 12/13/19 07:15 Hgb 11.9 gm/dl (10.1-14.3) 12/13/19 07:15 Hct 37.0 % (30.3-42.9) 12/13/19 07:15 MCV 95 fl (79-97) 12/13/19 07:15 MCH 31 pg (28-32) 12/13/19 07:15 MCHC 32 % (30-34) 12/13/19 07:15 RDW 15.9 % (13.2-15.2) H 12/13/19 07:15 Plt Count 132 K/mm3 (140-440) L 12/13/19 07:15 Lymph % (Auto) [facility] 12/07/19 11:10 Lymph # [facility] 12/07/19 11:10 Add Manual Diff Complete 12/07/19 11:10 Total Counted 200 12/07/19 11:10 Seg Neutrophils % [facility] 12/07/19 11:10 Seg Neuts % (Manual) 23.5 % (40.0-70.0) L 12/07/19 11:10 Band Neutrophils % 0 % 12/07/19 11:10 Lymphocytes % (Manual) 71.0 % (13.4-35.0) H 12/07/19 11:10 Reactive Lymphs % (Man) 0 % 12/07/19 11:10 Monocytes % (Manual) 5.5 % (0.0-7.3) 12/07/19 11:10 Eosinophils % (Manual) 0 % (0.0-4.3) 12/07/19 11:10 Basophils % (Manual) 0 % (0.0-1.8) 12/07/19 11:10 Metamyelocytes % 0 % 12/07/19 11:10 Myelocytes % 0 % 12/07/19 11:10 Promyelocytes % 0 % 12/07/19 11:10 Blast Cells % 0 % 12/07/19 11:10 Nucleated RBC % Not Reportable 12/07/19 11:10 Seg Neutrophils # Man 6.7 K/mm3 (1.8-7.7) 12/07/19 11:10 Band Neutrophils # 0.0 K/mm3 12/07/19 11:10 Lymphocytes # (Manual) 20.4 K/mm3 (1.2-5.4) H 12/07/19 11:10 Abs React Lymphs (Man) 0.0 K/mm3 12/07/19 11:10 Monocytes # (Manual) 1.6 K/mm3 (0.0-0.8) H 12/07/19 11:10 Eosinophils # (Manual) 0.0 K/mm3 (0.0-0.4) 12/07/19 11:10 Basophils # (Manual) 0.0 K/mm3 (0.0-0.1) 12/07/19 11:10 Metamyelocytes # 0.0 K/mm3 12/07/19 11:10 Myelocytes # 0.0 K/mm3 12/07/19 11:10 Promyelocytes # 0.0 K/mm3 12/07/19 11:10 Blast Cells # 0.0 K/mm3 12/07/19 11:10 WBC Morphology Not Reportable 12/07/19 11:10 Hypersegmented Neuts Not Reportable 12/07/19 11:10 Hyposegmented Neuts Not Reportable 12/07/19 11:10 Hypogranular Neuts Not Reportable 12/07/19 11:10 Smudge Cells Not Reportable 12/07/19 11:10 Toxic Granulation Not Reportable 12/07/19 11:10 Toxic Vacuolation Not Reportable 12/07/19 11:10 Dohle Bodies Not Reportable 12/07/19 11:10 Pelger-Huet Anomaly Not Reportable 12/07/19 11:10 Libia Rods Not Reportable 12/07/19 11:10 Platelet Estimate Consistent w auto 12/07/19 11:10 Clumped Platelets Not Reportable 12/07/19 11:10 Plt Clumps, EDTA Not Reportable 12/07/19 11:10 Large Platelets Not Reportable 12/07/19 11:10 Giant Platelets Not Reportable 12/07/19 11:10 Platelet Satelliting Not Reportable 12/07/19 11:10 Plt Morphology Comment Not Reportable 12/07/19 11:10 RBC Morphology Normal 12/07/19 11:10 Dimorphic RBCs Not Reportable 12/07/19 11:10 Polychromasia Not Reportable 12/07/19 11:10 Hypochromasia Not Reportable 12/07/19 11:10 Poikilocytosis Not Reportable 12/07/19 11:10 Anisocytosis Not Reportable 12/07/19 11:10 Microcytosis Not Reportable 12/07/19 11:10 Macrocytosis Not Reportable 12/07/19 11:10 Spherocytes Not Reportable 12/07/19 11:10 Pappenheimer Bodies Not Reportable 12/07/19 11:10 Sickle Cells Not Reportable 12/07/19 11:10 Target Cells Not Reportable 12/07/19 11:10 Tear Drop Cells Not Reportable 12/07/19 11:10 Ovalocytes Not Reportable 12/07/19 11:10 Helmet Cells Not Reportable 12/07/19 11:10 [place] Bodies Not Reportable 12/07/19 11:10 [place] Rings Not Reportable 12/07/19 11:10 [place] Cells Not Reportable 12/07/19 11:10 Bite Cells Not Reportable 12/07/19 11:10 Crenated Cell Not Reportable 12/07/19 11:10 Elliptocytes Not Reportable 12/07/19 11:10 Acanthocytes (Spur) Not Reportable 12/07/19 11:10 Rouleaux Not Reportable 12/07/19 11:10 Hemoglobin C Crystals Not Reportable 12/07/19 11:10 Schistocytes Not Reportable 12/07/19 11:10 Malaria parasites Not Reportable 12/07/19 11:10 Daniel Bodies Not Reportable 12/07/19 11:10 Hem Pathologist Commnt No 12/07/19 11:10 Sodium 142 mmol/L (137-145) 12/03/19 09:16 Potassium 4.4 mmol/L (3.6-5.0) 12/03/19 09:16 Chloride 105.5 mmol/L (98-107) 12/03/19 09:16 Carbon Dioxide 22 mmol/L (22-30) 12/03/19 09:16 Anion Gap 19 mmol/L 12/03/19 09:16 BUN 18 mg/dL (7-17) H 12/03/19 09:16 Creatinine 0.9 mg/dL (0.7-1.2) 12/03/19 09:16 Estimated GFR > 60 ml/min 12/03/19 09:16 BUN/Creatinine Ratio 20 % 12/03/19 09:16 Glucose 118 mg/dL (65-100) H 12/03/19 09:16 POC Glucose 92 (70-105) 12/13/19 19:44 Hemoglobin A1c 4.7 % (4-6) 12/03/19 09:16 Calcium 9.5 mg/dL (8.4-10.2) 12/03/19 09:16 Total Bilirubin 0.30 mg/dL (0.1-1.2) 12/03/19 09:16 AST 18 units/L (5-40) 12/03/19 09:16 ALT 15 units/L (7-56) 12/03/19 09:16 Alkaline Phosphatase 69 units/L (35-129) 12/03/19 09:16 Total Protein 6.8 g/dL (6.3-8.2) 12/03/19 09:16 Albumin 4.1 g/dL (3.9-5) 12/03/19 09:16 Albumin/Globulin Ratio 1.5 % 12/03/19 09:16 Triglycerides 70 mg/dL (2-149) 12/03/19 09:16 Cholesterol 234 mg/dL (50-199) H 12/03/19 09:16 LDL Cholesterol Direct 181 mg/dL (50-130) H 12/03/19 09:16 HDL Cholesterol 57 mg/dL (40-59) 12/03/19 09:16 Cholesterol/HDL Ratio 4.10 % 12/03/19 09:16 TSH 1.430 mlU/mL (0.270-4.200) 12/13/19 07:15 Free T4 0.88 ng/dL (0.76-1.46) 12/13/19 07:15 Last Vital Signs Temp 97.7 F 12/18/19 19:51 Pulse 87 12/18/19 19:51 Resp 16 12/18/19 19:51 BP 127/80 12/18/19 19:51 Pulse Ox 97 12/18/19 19:51
[2019-12-19] MEDS: MELATONIN 5 MG TAB PO SCH (21:33)
[2019-12-19] MEDS: MIRTAZAPINE 15 MG TAB PO SCH (21:33)
[2019-12-20] MEDS: LORazepam 2 MG/ML VIAL IM SCH ×2 (04:34→10:45)
--- NOTE | 2019-12-20 09:05 | Progress Note ---
Subjective Date of service: 12/20/19 Principal diagnosis: Dementia, Catatonic Schizophrenia Subjective Comment: Per Nursing note: Patient continues to be somewhat isolative but was observed interacting well with peers before dinner. Her affect is brighter. She told Tech, "You made my day!" for letting her watch [facility]. Patient continues to refuse PO meds but accepted IM Haldol injection and Ativan without difficulty. No apparent distress noted. HPI Patient seen by me in person in the room this A.M., found awake and resting in bed, still no communication or responses to this providers interview questions. Patient eats and sleeps well. No aggressive behavior towards self or others. She showers and observes personal hygiene. Reason for continuing admission: Switching IM Lorazepam to Clonazepam oral. To be discharged to Personal care facility tomorrow. REVIEW OF SYSTEMS Constitutional: Negative for weight loss ENT: Negative for stridor Respiratory: Negative for cough or hemoptysis All other systems reviewed and are negative MENTAL STATUS EXAMINATION General Appearance and Behavior: age appropriate, fair eye contact, uncooperative with questioning but polite Cooperation: Cooperative Psychomotor Behavior: Decreased Mood: OK Affect and affective range: Congruent with stated mood Thought Process: Fluent/Logical and Goal-directed Thought Content: Within reality Speech: Normal volume and Regular rate and rhythm Intellectual Functioning Average Suicidal Ideation: Denies SI Homicidal Ideation: Denies HI Impulse Control: intact Insight and Judgment: Fair insight and judgment Memory: Normal Attention: Normal Orientation: alert and oriented - Psychiatric problem (1) Schizophrenia, Catatonic Current Visit: Yes Status: Acute Qualifiers: Schizophrenia type: unspecified Qualified Code(s): F20.9 - Schizophrenia, unspecified (2) Dementia with behavioral disturbance Current Visit: Yes Status: Acute Treatment Plan Patient will be admitted for inpatient psychiatric evaluation, medication adjustment and close monitoring The patient's behavior, mood, sleep and appetite will be closely monitored. Patient will be enrolled in individual and group therapeutic sessions and encouraged to attend. Patient will be provided with a safe and structured environment. Patient's physical health needs will be addressed by the Hospitalist. Hospitalist Consulted Labs including CBC, CMP, Lipid profile and Hemoglobin A1C ordered Social Assessment will be completed and the Hotel Maintenance Engineer will work with patient and family to ensure a suitable and safe disposition Medication adjustment made as clinically indicated Most recent medication adjustment: IM Lorazepam to Clonazepam oral today ELOS 1 days. Legal Status: Involuntary Medications and Allergies Allergies Allergy/AdvReac Type Severity Reaction Status Date / Time No Known Allergies Allergy Verified 12/02/19 18:17 Home Medications Medication Instructions Recorded Confirmed Last Taken Type Melatonin [Melatonin 5MG TAB] 5 mg PO QHS 12/03/19 12/03/19 Unknown History Mirtazapine [Remeron 15mg TAB] 15 mg PO QHS 12/03/19 12/03/19 Unknown History Venlafaxine Xr [Effexor Xr] 75 mg PO QDAY 12/03/19 12/03/19 Unknown History risperiDONE [RisperDAL] 2 mg PO QHS 12/03/19 12/03/19 Unknown History Paliperidone Palmitate(Nf) [Invega 234 mg IM ONCE #1 ml 12/06/19 Unknown Rx Sustenna(Nf)] Active Meds: Active Medications Atorvastatin Calcium (Lipitor) 20 mg PO QHS [facility] Last Admin: 12/19/19 21:33 Dose: Not Given Documented by: Haloperidol Decanoate (Haldol Decanoate) 100 mg IM Q2W [facility] Lorazepam (Ativan) 1 mg IM Q6H [facility] Last Admin: 12/20/19 04:34 Dose: 1 mg Documented by: Melatonin (Melatonin) 5 mg PO QHS [facility] Last Admin: 12/19/19 21:33 Dose: Not Given Documented by: Mirtazapine (Remeron) 15 mg PO QHS [facility] Last Admin: 12/19/19 21:33 Dose: Not Given Documented by: Trazodone HCl (Desyrel) 50 mg PO QHS PRN PRN Reason: Insomnia Venlafaxine HCl (Effexor Xr) 75 mg PO QDAY [facility] Last Admin: 12/19/19 10:48 Dose: Not Given Documented by: Results - Results Labs/Vitals: Laboratory Last Values WBC 24.7 K/mm3 (4.5-11.0) H 12/13/19 07:15 RBC 3.90 M/mm3 (3.65-5.03) 12/13/19 07:15 Hgb 11.9 gm/dl (10.1-14.3) 12/13/19 07:15 Hct 37.0 % (30.3-42.9) 12/13/19 07:15 MCV 95 fl (79-97) 12/13/19 07:15 MCH 31 pg (28-32) 12/13/19 07:15 MCHC 32 % (30-34) 12/13/19 07:15 RDW 15.9 % (13.2-15.2) H 12/13/19 07:15 Plt Count 132 K/mm3 (140-440) L 12/13/19 07:15 Lymph % (Auto) Tractor Expert 12/07/19 11:10 Lymph # Tractor Expert 12/07/19 11:10 Add Manual Diff Complete 12/07/19 11:10 Total Counted 200 12/07/19 11:10 Seg Neutrophils % Tractor Expert 12/07/19 11:10 Seg Neuts % (Manual) 23.5 % (40.0-70.0) L 12/07/19 11:10 Band Neutrophils % 0 % 12/07/19 11:10 Lymphocytes % (Manual) 71.0 % (13.4-35.0) H 12/07/19 11:10 Reactive Lymphs % (Man) 0 % 12/07/19 11:10 Monocytes % (Manual) 5.5 % (0.0-7.3) 12/07/19 11:10 Eosinophils % (Manual) 0 % (0.0-4.3) 12/07/19 11:10 Basophils % (Manual) 0 % (0.0-1.8) 12/07/19 11:10 Metamyelocytes % 0 % 12/07/19 11:10 Myelocytes % 0 % 12/07/19 11:10 Promyelocytes % 0 % 12/07/19 11:10 Blast Cells % 0 % 12/07/19 11:10 Nucleated RBC % Not Reportable 12/07/19 11:10 Seg Neutrophils # Man 6.7 K/mm3 (1.8-7.7) 12/07/19 11:10 Band Neutrophils # 0.0 K/mm3 12/07/19 11:10 Lymphocytes # (Manual) 20.4 K/mm3 (1.2-5.4) H 12/07/19 11:10 Abs React Lymphs (Man) 0.0 K/mm3 12/07/19 11:10 Monocytes # (Manual) 1.6 K/mm3 (0.0-0.8) H 12/07/19 11:10 Eosinophils # (Manual) 0.0 K/mm3 (0.0-0.4) 12/07/19 11:10 Basophils # (Manual) 0.0 K/mm3 (0.0-0.1) 12/07/19 11:10 Metamyelocytes # 0.0 K/mm3 12/07/19 11:10 Myelocytes # 0.0 K/mm3 12/07/19 11:10 Promyelocytes # 0.0 K/mm3 12/07/19 11:10 Blast Cells # 0.0 K/mm3 12/07/19 11:10 WBC Morphology Not Reportable 12/07/19 11:10 Hypersegmented Neuts Not Reportable 12/07/19 11:10 Hyposegmented Neuts Not Reportable 12/07/19 11:10 Hypogranular Neuts Not Reportable 12/07/19 11:10 Smudge Cells Not Reportable 12/07/19 11:10 Toxic Granulation Not Reportable 12/07/19 11:10 Toxic Vacuolation Not Reportable 12/07/19 11:10 Dohle Bodies Not Reportable 12/07/19 11:10 Pelger-Huet Anomaly Not Reportable 12/07/19 11:10 Libia Rods Not Reportable 12/07/19 11:10 Platelet Estimate Consistent w auto 12/07/19 11:10 Clumped Platelets Not Reportable 12/07/19 11:10 Plt Clumps, EDTA Not Reportable 12/07/19 11:10 Large Platelets Not Reportable 12/07/19 11:10 Giant Platelets Not Reportable 12/07/19 11:10 Platelet Satelliting Not Reportable 12/07/19 11:10 Plt Morphology Comment Not Reportable 12/07/19 11:10 RBC Morphology Normal 12/07/19 11:10 Dimorphic RBCs Not Reportable 12/07/19 11:10 Polychromasia Not Reportable 12/07/19 11:10 Hypochromasia Not Reportable 12/07/19 11:10 Poikilocytosis Not Reportable 12/07/19 11:10 Anisocytosis Not Reportable 12/07/19 11:10 Microcytosis Not Reportable 12/07/19 11:10 Macrocytosis Not Reportable 12/07/19 11:10 Spherocytes Not Reportable 12/07/19 11:10 Pappenheimer Bodies Not Reportable 12/07/19 11:10 Sickle Cells Not Reportable 12/07/19 11:10 Target Cells Not Reportable 12/07/19 11:10 Tear Drop Cells Not Reportable 12/07/19 11:10 Ovalocytes Not Reportable 12/07/19 11:10 Helmet Cells Not Reportable 12/07/19 11:10 Claire-[place] Bodies Not Reportable 12/07/19 11:10 [place] Rings Not Reportable 12/07/19 11:10 [place] Cells Not Reportable 12/07/19 11:10 Bite Cells Not Reportable 12/07/19 11:10 Crenated Cell Not Reportable 12/07/19 11:10 Elliptocytes Not Reportable 12/07/19 11:10 Acanthocytes (Spur) Not Reportable 12/07/19 11:10 Rouleaux Not Reportable 12/07/19 11:10 Hemoglobin C Crystals Not Reportable 12/07/19 11:10 Schistocytes Not Reportable 12/07/19 11:10 Malaria parasites Not Reportable 12/07/19 11:10 Daniel Bodies Not Reportable 12/07/19 11:10 Hem Pathologist Commnt No 12/07/19 11:10 Sodium 142 mmol/L (137-145) 12/03/19 09:16 Potassium 4.4 mmol/L (3.6-5.0) 12/03/19 09:16 Chloride 105.5 mmol/L (98-107) 12/03/19 09:16 Carbon Dioxide 22 mmol/L (22-30) 12/03/19 09:16 Anion Gap 19 mmol/L 12/03/19 09:16 BUN 18 mg/dL (7-17) H 12/03/19 09:16 Creatinine 0.9 mg/dL (0.7-1.2) 12/03/19 09:16 Estimated GFR > 60 ml/min 12/03/19 09:16 BUN/Creatinine Ratio 20 % 12/03/19 09:16 Glucose 118 mg/dL (65-100) H 12/03/19 09:16 POC Glucose 92 (70-105) 12/13/19 19:44 Hemoglobin A1c 4.7 % (4-6) 12/03/19 09:16 Calcium 9.5 mg/dL (8.4-10.2) 12/03/19 09:16 Total Bilirubin 0.30 mg/dL (0.1-1.2) 12/03/19 09:16 AST 18 units/L (5-40) 12/03/19 09:16 ALT 15 units/L (7-56) 12/03/19 09:16 Alkaline Phosphatase 69 units/L (35-129) 12/03/19 09:16 Total Protein 6.8 g/dL (6.3-8.2) 12/03/19 09:16 Albumin 4.1 g/dL (3.9-5) 12/03/19 09:16 Albumin/Globulin Ratio 1.5 % 12/03/19 09:16 Triglycerides 70 mg/dL (2-149) 12/03/19 09:16 Cholesterol 234 mg/dL (50-199) H 12/03/19 09:16 LDL Cholesterol Direct 181 mg/dL (50-130) H 12/03/19 09:16 HDL Cholesterol 57 mg/dL (40-59) 12/03/19 09:16 Cholesterol/HDL Ratio 4.10 % 12/03/19 09:16 TSH 1.430 mlU/mL (0.270-4.200) 12/13/19 07:15 Free T4 0.88 ng/dL (0.76-1.46) 12/13/19 07:15 Last Vital Signs Temp 98.4 F 12/19/19 19:53 Pulse 91 H 12/19/19 19:53 Resp 16 12/19/19 19:53 BP 130/81 12/19/19 19:53 Pulse Ox 96 12/19/19 19:53
[2019-12-20] MEDS: clonazePAM 0.5 MG TAB PO SCH ×2 (12:04→21:26)
[2019-12-20] MEDS: VENLAFAXINE XR 75 MG CAP PO SCH (12:04)
[2019-12-20] MEDS: MELATONIN 5 MG TAB PO SCH (21:26)
[2019-12-20] MEDS: MIRTAZAPINE 15 MG TAB PO SCH (21:26)
[2019-12-21 07:58] VITALS: BP 138/92
--- NOTE | 2019-12-21 09:23 | Discharge Summary ---
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 Combative with staffs Condition: Stable Hospital course: The patient was provided inpatient psychiatric treatment with safe and supportive environment, group/individual therapy, psychiatric medication, medication adjustment, adverse effect monitor, medical evaluation, medical treatment, social service assessment, social support meeting, placement assessment and psycho-education. The patients mood, cognition, behavior, motivation, compliance to treatment and appreciation on family/social support are improved and stabilized. At the time of discharge, the patient had no suicidal ideas, no homicidal ideas, no aggressive thoughts, no endangering behavior and no debilitating adverse effects. The patient agreed on the tr eatment plan, understood the risk, benefit, alternative treatment, potential consequence of no treatment, and gave informed consent. She was started on Decaonoate. NEXT DOSE IS ON 12/31/2019 and 2 weekly thereafter. Disposition: DC-01 TO HOME OR SELFCARE Time spent for discharge: 35 mins Allergies/Adverse Reactions: Allergies No Known Allergies Allergy (Verified 12/02/19 18:17) Vital Signs: Last Vital Signs Temp 97.2 F L 12/21/19 08:40 Pulse 99 H 12/21/19 08:40 Resp 18 12/21/19 07:45 BP 138/92 12/21/19 07:45 Pulse Ox 98 12/21/19 07:45 Last Lab: Laboratory Last Values WBC 24.7 K/mm3 (4.5-11.0) H 12/13/19 07:15 RBC 3.90 M/mm3 (3.65-5.03) 12/13/19 07:15 Hgb 11.9 gm/dl (10.1-14.3) 12/13/19 07:15 Hct 37.0 % (30.3-42.9) 12/13/19 07:15 MCV 95 fl (79-97) 12/13/19 07:15 MCH 31 pg (28-32) 12/13/19 07:15 MCHC 32 % (30-34) 12/13/19 07:15 RDW 15.9 % (13.2-15.2) H 12/13/19 07:15 Plt Count 132 K/mm3 (140-440) L 12/13/19 07:15 Lymph % (Auto) Cotton Bag Sewer 12/07/19 11:10 Lymph # Cotton Bag Sewer 12/07/19 11:10 Add Manual Diff Complete 12/07/19 11:10 Total Counted 200 12/07/19 11:10 Seg Neutrophils % Cotton Bag Sewer 12/07/19 11:10 Seg Neuts % (Manual) 23.5 % (40.0-70.0) L 12/07/19 11:10 Band Neutrophils % 0 % 12/07/19 11:10 Lymphocytes % (Manual) 71.0 % (13.4-35.0) H 12/07/19 11:10 Reactive Lymphs % (Man) 0 % 12/07/19 11:10 Monocytes % (Manual) 5.5 % (0.0-7.3) 12/07/19 11:10 Eosinophils % (Manual) 0 % (0.0-4.3) 12/07/19 11:10 Basophils % (Manual) 0 % (0.0-1.8) 12/07/19 11:10 Metamyelocytes % 0 % 12/07/19 11:10 Myelocytes % 0 % 12/07/19 11:10 Promyelocytes % 0 % 12/07/19 11:10 Blast Cells % 0 % 12/07/19 11:10 Nucleated RBC % Not Reportable 12/07/19 11:10 Seg Neutrophils # Man 6.7 K/mm3 (1.8-7.7) 12/07/19 11:10 Band Neutrophils # 0.0 K/mm3 12/07/19 11:10 Lymphocytes # (Manual) 20.4 K/mm3 (1.2-5.4) H 12/07/19 11:10 Abs React Lymphs (Man) 0.0 K/mm3 12/07/19 11:10 Monocytes # (Manual) 1.6 K/mm3 (0.0-0.8) H 12/07/19 11:10 Eosinophils # (Manual) 0.0 K/mm3 (0.0-0.4) 12/07/19 11:10 Basophils # (Manual) 0.0 K/mm3 (0.0-0.1) 12/07/19 11:10 Metamyelocytes # 0.0 K/mm3 12/07/19 11:10 Myelocytes # 0.0 K/mm3 12/07/19 11:10 Promyelocytes # 0.0 K/mm3 12/07/19 11:10 Blast Cells # 0.0 K/mm3 12/07/19 11:10 WBC Morphology Not Reportable 12/07/19 11:10 Hypersegmented Neuts Not Reportable 12/07/19 11:10 Hyposegmented Neuts Not Reportable 12/07/19 11:10 Hypogranular Neuts Not Reportable 12/07/19 11:10 Smudge Cells Not Reportable 12/07/19 11:10 Toxic Granulation Not Reportable 12/07/19 11:10 Toxic Vacuolation Not Reportable 12/07/19 11:10 Dohle Bodies Not Reportable 12/07/19 11:10 Pelger-Huet Anomaly Not Reportable 12/07/19 11:10 Libia Rods Not Reportable 12/07/19 11:10 Platelet Estimate Consistent w auto 12/07/19 11:10 Clumped Platelets Not Reportable 12/07/19 11:10 Plt Clumps, EDTA Not Reportable 12/07/19 11:10 Large Platelets Not Reportable 12/07/19 11:10 Giant Platelets Not Reportable 12/07/19 11:10 Platelet Satelliting Not Reportable 12/07/19 11:10 Plt Morphology Comment Not Reportable 12/07/19 11:10 RBC Morphology Normal 12/07/19 11:10 Dimorphic RBCs Not Reportable 12/07/19 11:10 Polychromasia Not Reportable 12/07/19 11:10 Hypochromasia Not Reportable 12/07/19 11:10 Poikilocytosis Not Reportable 12/07/19 11:10 Anisocytosis Not Reportable 12/07/19 11:10 Microcytosis Not Reportable 12/07/19 11:10 Macrocytosis Not Reportable 12/07/19 11:10 Spherocytes Not Reportable 12/07/19 11:10 Pappenheimer Bodies Not Reportable 12/07/19 11:10 Sickle Cells Not Reportable 12/07/19 11:10 Target Cells Not Reportable 12/07/19 11:10 Tear Drop Cells Not Reportable 12/07/19 11:10 Ovalocytes Not Reportable 12/07/19 11:10 Helmet Cells Not Reportable 12/07/19 11:10 [place] Bodies Not Reportable 12/07/19 11:10 [place] Rings Not Reportable 12/07/19 11:10 [place] Cells Not Reportable 12/07/19 11:10 Bite Cells Not Reportable 12/07/19 11:10 Crenated Cell Not Reportable 12/07/19 11:10 Elliptocytes Not Reportable 12/07/19 11:10 Acanthocytes (Spur) Not Reportable 12/07/19 11:10 Rouleaux Not Reportable 12/07/19 11:10 Hemoglobin C Crystals Not Reportable 12/07/19 11:10 Schistocytes Not Reportable 12/07/19 11:10 Malaria parasites Not Reportable 12/07/19 11:10 Daniel Bodies Not Reportable 12/07/19 11:10 Hem Pathologist Commnt No 12/07/19 11:10 Sodium 142 mmol/L (137-145) 12/03/19 09:16 Potassium 4.4 mmol/L (3.6-5.0) 12/03/19 09:16 Chloride 105.5 mmol/L (98-107) 12/03/19 09:16 Carbon Dioxide 22 mmol/L (22-30) 12/03/19 09:16 Anion Gap 19 mmol/L 12/03/19 09:16 BUN 18 mg/dL (7-17) H 12/03/19 09:16 Creatinine 0.9 mg/dL (0.7-1.2) 12/03/19 09:16 Estimated GFR > 60 ml/min 12/03/19 09:16 BUN/Creatinine Ratio 20 % 12/03/19 09:16 Glucose 118 mg/dL (65-100) H 12/03/19 09:16 POC Glucose 92 (70-105) 12/13/19 19:44 Hemoglobin A1c 4.7 % (4-6) 12/03/19 09:16 Calcium 9.5 mg/dL (8.4-10.2) 12/03/19 09:16 Total Bilirubin 0.30 mg/dL (0.1-1.2) 12/03/19 09:16 AST 18 units/L (5-40) 12/03/19 09:16 ALT 15 units/L (7-56) 12/03/19 09:16 Alkaline Phosphatase 69 units/L (35-129) 12/03/19 09:16 Total Protein 6.8 g/dL (6.3-8.2) 12/03/19 09:16 Albumin 4.1 g/dL (3.9-5) 12/03/19 09:16 Albumin/Globulin Ratio 1.5 % 12/03/19 09:16 Triglycerides 70 mg/dL (2-149) 12/03/19 09:16 Cholesterol 234 mg/dL (50-199) H 12/03/19 09:16 LDL Cholesterol Direct 181 mg/dL (50-130) H 12/03/19 09:16 HDL Cholesterol 57 mg/dL (40-59) 12/03/19 09:16 Cholesterol/HDL Ratio 4.10 % 12/03/19 09:16 TSH 1.430 mlU/mL (0.270-4.200) 12/13/19 07:15 Free T4 0.88 ng/dL (0.76-1.46) 12/13/19 07:15 Core Measure Documentation - Palliative Care Palliative Care/ Comfort Measures: Not Applicable - Core Measures Any of the following diagnoses?: none Exam - Constitutional Vitals: Temp Pulse Resp BP Pulse Ox 97.2 F L 99 H 18 138/92 98 12/21/19 08:40 12/21/19 08:40 12/21/19 07:45 12/21/19 07:45 12/21/19 07:45 General appearance: Present: no acute distress - EENT Eyes: Present: PERRL, EOM intact ENT: hearing intact, clear oral mucosa - Neck Neck: Present: supple, normal ROM - Respiratory Respiratory effort: normal Plan Activity: advance as tolerated Weight Bearing Status: Weight Bear as Tolerated Care Plan Goals: Maintain good and stable mental health. Plan of Treatment: The patient should be compliant with medications, not to use drugs and not to drink alcohol. The patient understands that if suicidal ideas, homicidal ideas, or any endangering thoughts arise, the patient should immediately seek for emergent assistance including but not limited to crisis hot line and emergency room. Follow up with outpatient Psychiatrist and PCP within 7 - 14 days of discharge. Assessment: Schizophrenia, Catatonic type Follow up with: PRIMARY CARE, [Primary Care Provider] - 7 Days Prescriptions: clonazePAM [KlonoPIN] 1 mg PO BID #60 tablet
[2019-12-21] MEDS: clonazePAM 0.5 MG TAB PO SCH (09:32)
[2019-12-21] MEDS: VENLAFAXINE XR 75 MG CAP PO SCH (09:33)
[2019-12-31] MEDS ORDERED: HALOPERIDOL DECANOATE 100 MG/1 ML INJ IM SCH (11:00)
== END 2019-12-21 11:00 | disposition home or self-care (01) | DRG 884 ==
LOC: 3A 18:09 → UNDOADMIN 18:09 → 5A 20:20
PROVIDERS: ADMIT Psychiatry & Neurology Psychiatry; ATTEND Psychiatry & Neurology Psychiatry
DX: F03.91 Unspecified dementia, unspecified severity, with behavioral disturbance (principal); F20.2 Catatonic schizophrenia; R65.10 Systemic inflammatory response syndrome (SIRS) of non-infectious origin without acute organ dysfunction; D72.829 Elevated white blood cell count, unspecified; E78.5 Hyperlipidemia, unspecified; R00.0 Tachycardia, unspecified; Z79.899 Other long term (current) drug therapy
CPT/HCPCS: 36415; 80053; 80061; 82962; 83036; 84439; 84443; 85007; 85025; 85027; 87086; G0378; A9270-GY; J1630; J1631; J2060